=== PATIENT | female | born 1990 | race Two or more races ===

== ENCOUNTER 2025-02-23 16:36 | Emergency (ER) | payer MEDICAID, OTHER ==
[~2025-02-23] VITALS: Ht 162.6 cm; Wt 108.6 kg
--- NOTE | 2025-02-23 17:07 | ED.PDOC ---
GI ASSESSMENT HPI Comments 34 y/o F, with PMHx of PCOS of uterine fibroids presents to the ED for CC of abdominal pain. Patient states, she has been experiencing pelvic and lower abdominal pain that radiates to her lower back sudden onset, this morning (02/23/25). Patient denies urinary symptoms, hematuria, nausea, vomiting, or fever. No other symptoms or modifying factors are present at this time. Patient was mildly tachycardic at arrival. Chief Complaint: Abdominal Pain Time Seen by MD: 17:00 Reviewed Notes: Nurses Notes, Medications, Allergies Allergies: Coded Allergies: Acetaminophen (Verified Allergy, Unknown, 02/23/25) Information Source: Patient Mode of Arrival: Ambulatory Timing: Hours Duration: Since onset Prehospital treatment: None Quality: None Vomitus: None Stool: Normal Severity: Moderate Recent: None Recent Hx of: None Pain Location: RLQ, LLQ, Other Modifying Factors: Nothing Associated sign and symptoms: Nausea, Abdominal Pain Past Medical History PAST MEDICAL HISTORY: Denies Surgical History: Denies all surgeries [employer] History: Uterine Fibroids Family History Family History: Unknown Social History Smoker: Non-Smoker Alcohol: Denies ETOH Use Drugs: Denies Drug Use Lives In: Home Constitutional: denies: chills, diaphoresis, fatigue, fever, malaise, sweats, weakness, others EENTM: denies: blurred vision, double vision, ear bleeding, ear discharge, ear drainage, ear pain, ear ringing, eye pain, eye redness, hearing loss, mouth pain, mouth swelling, nasal discharge, nose bleeding, nose congestion, nose pain, photophobia, tearing, throat pain, throat swelling, voice changes, others Respiratory: denies: cough, hemoptysis, orthopnea, SOB at rest, shortness of breath, SOB with excertion, stridor, wheezing, others Cardiovascular: denies: chest pain, dizzy spells, diaphoresis, Dyspnea on exertion, edema, irregular heart beat, left arm pain, lightheadedness, palpitations, PND, syncope, others Gastrointestinal: reports: abdominal pain; denies: abdomen distended, blood streaked bowels, constipated, diarrhea, dysphagia, difficulty swallowing, hematemesis, melena, nausea, poor appetite, poor fluid intake, rectal bleeding, rectal pain, vomiting, others Genitourinary: denies: abnormal vagina bleeding, burning, dyspareunia, dysuria, flank pain, frequency, hematuria, incontinence, pain, , vagina discharge, urgency, others Neurological: denies: dizziness, fainting, headache, left sided numbness, left sided weakness, numbness, paresthesia, pre-existing deficit, right sided nu mbness, right sided weakness, seizure, speech problems, tingling, tremors, weakness, others Musculoskeletal: denies: back pain, gout, joint pain, joint swelling, muscle pain, muscle stiffness, neck pain, others Integumetry: denies: bruises, change in color, change in hair/nails, dryness, laceration, lesions, lumps, rash, wounds, others Allergic/Immunocompromised: denies: Difficulty Healing, Frequent Infections, Hives, Itching, others Hematologic/Lymphatic: denies: anemia, blood clots, easy bleeding, easy bruising, swollen glands, others Endocrine: denies: excessive hunger, excessive sweating, excessive thirst, excessive urination, flushing, intolerance to cold, intolerance to heat, unexplained weight gain, unexplained weight loss, others Psychiatric: denies: anxiety, bipolar disorder, depression, hopeless, panic disorder, schizophrenia, sleepless, suicidal, others All Other Systems: Reviewed and Negative Physical Exam General Appearance: Moderate Distress (Moderate distress due to abdominal pain concerns.), Obese HEENT: Normal ENT Inspection, Pharynx Normal, TMs Normal Neck: Full Range of Motion, Non-Tender, Normal, Normal Inspection Respiratory: Chest Non-Tender, Lungs Clear, No Accessory Muscle Use, No Respiratory Distress, Normal Breath Sounds Cardiovascular: No Edema, No JVD, No Murmur, No Gallop, Normal Peripheral Pulses, Regular Rate/Rhythm Breast Exam: Deferred Gastrointestinal: Other (Diffuse bilateral lower abdominal pain with left greater than right. Pain extends into the pelvis and back. Difficult to assess due to body habitus. No signs of trauma.) Genitalia: Deferred Pelvic: Deferred Rectal: Deferred Extremities: No calf tenderness, Normal capillary refill, Normal inspection, Normal range of motion, Non-tender, No pedal edema Neurologic: Alert, No Motor Deficits, Normal Affect, Normal Mood, No Sensory Deficits Cerebellar Function: NOT DONE Reflexes: NOT DONE Skin: Dry, Normal Color, Warm Lymphatic: No Adenopathy Was a procedure done? Was a procedure done?: No GI differential Dx Differential Diagnosis: Appendicitis, Bowel Obstruction, Cholecystitis, C onstipation, Diverticular disease, Ovarian cyst/torsion, Urinary Obstruction, UTI, Urolithiasis X-Ray, Labs, Meds, VS Vital Signs Date Time Temp Pulse Resp B/P (MAP) Pulse Ox O2 Delivery O2 Flow Rate FiO2 02/23/25 16:37 98.1 101 16 138/94 99 98.1 Lab Test 02/23/25 18:00 02/23/25 17:21 Range/Units Urine Color Yellow Yellow Urine Clarity Clear Clear Urine pH 6.5 5.0-9.0 Urine Specific [place] 1.031 1.001-1.035 Urine Protein Negative Negative Urine Ketones Negative Negative Urine Blood Negative Negative /uL Urine Nitrite Negative Negative Urine Bilirubin Negative Negative Urine Urobilinogen Normal Negative mg/dL Urine Leukocyte Esterase Negative Negative /uL Urine RBC 1 0 - 4 /hpf Urine Microscopic WBC 2 0-5 /HPF Urine Squamous Epithelial Cells Few <5 /hpf Urine Bacteria Few H None Seen /hpf Urine Mucus Few None Seen Urine Glucose Normal Normal mg/dL Urine Test Negative Negative White Blood Count 16.0 H 4.4-10.8 10^3/uL Red Blood Count 5.28 H 4.0-5.20 10^6/uL Hemoglobin 14.4 12.2-16.2 g/dL Hematocrit 43.2 36.0-46.0 % Mean Corpuscular Volume 81.7 80.0-100.0 fL Mean Corpuscular Hemoglobin 27.2 L 28.0-32.0 pg Mean Corpuscular Hemoglobin Concent 33.3 32.0-36.0 g/dL Red Cell Distribution Width 14.4 H 11.8-14.3 % Platelet Count 330 140-450 10^3/uL Mean Platelet Volume 8.3 6.9-10.8 fL Neutrophils (%) (Auto) 75.1 37.0-80.0 % Lymphocytes (%) (Auto) 17.2 10.0-50.0 % Monocytes (%) (Auto) 6.6 0.0-12.0 % Eosinophils (%) (Auto) 0.9 0.0-7.0 % Basophils (%) (Auto) 0.2 0.0-2.0 % Neutrophils # (Auto) 12.0 H 1.6-8.6 10 ^3/uL Lymphocytes # (Auto) 2.8 0.4-5.4 10 ^3/uL Monocytes # (Auto) 1.1 0-1.3 10 ^3/uL Eosinophils # (Auto) 0.2 0-0.8 10 ^3/uL Basophils # (Auto) 0 0-0.2 10 ^3/uL Nucleated Red Blood Cells 0.0 % Sodium Level 141 136-145 mmol/L Potassium Level 4.0 3.5-5.1 mmol/L Chloride Level 104 98-107 mmol/L Carbon Dioxide Level 25 20-31 mmol/L Anion Gap 12 5-15 Blood Urea Nitrogen 8 L 9-23 mg/dL Creatinine 0.76 0.550-1.02 mg/dL Glomerular Filtration Rate Calc 107 >90 mL/min BUN/Creatinine Ratio 10.5 10.0-20.0 Serum Glucose 97 74-106 mg/dL Calcium Level 9.4 8.7-10.4 mg/dL C-Reactive Protein High Sensitivity 3.35 H <1.0 mg/dL Current Medications Medications (Trade) Dose Ordered Sig/Altaf Route Start Time Stop Time Status Last Admin Tramadol HCl (Ultram) 50 mg ONCE ONCE PO 02/23/25 18:30 02/23/25 18:31 DC 02/23/25 18:41 X-Ray, Labs, Meds, VS Comment All studies performed the ED were evaluated by me personally. Serum studies revealed an elevated white blood cell count as well as an elevated CRP. CT with contrast of the abdomen and pelvis revealed a diverticulitis event. Patient will be sent home with the antibiotics and pain medication. Time of 1ST Reevaluation: 17:30 Reevaluation 1ST: Unchanged Patient Education/Counseling: Diagnosis, Treatment Family Education/Counseling: No Family Present SEPSIS Sepsis Screen Date sepsis recognized/suspect: Feb 23, 2025 Time Sepsis recognized/suspect: 1640 Recent Procedure: No On Antibiotic Therapy: No Respiratory Rate >20: No Heart Rate >90: Yes Temp<36 C (96.8 F) or >38.3 C: No SBP <90 or MAP <65 mmHG: No New Acute Mental Status Change: No Is the patient on CPAP, BIPAP,: No Physician Orders Heplock Iv (02/23/25 ) Ct Ab Pel With Iv Con Only (02/23/25 18:55) Vital Signs Date Time Temp Pulse Resp B/P (MAP) Pulse Ox O2 Delivery O2 Flow Rate FiO2 02/23/25 16:37 98.1 101 16 138/94 99 98.1 Laboratory Tests Test 02/23/25 17:21 White Blood Count 16.0 10^3/uL (4.4-10.8) H Medications Medications Dose Ordered Sig/Altaf Route Start Time Stop Time Status Last Admin Dose Admin Tramadol HCl 50 mg ONCE ONCE PO 02/23/25 18:30 02/23/25 18:31 DC 02/23/25 18:41 Departure 1 Departure Time of Disposition: 21:42 Impression: Primary Impression: Diverticulitis of intestine Disposition: 01 HOME / SELF CARE / HOMELESS Condition: Stable Additional Instructions: Advise antibiotics as directed until completion as well as pain medication as needed. Patient should follow up with the primary care provider in 10 days for re-evaluation and conversation is related to today's diagnosis. e-Prescriptions Ibuprofen Micronized (Ibuprofen) 800 Mg Tab 800 MG PO Q8HP PRN, #20 TAB Prov: BAKARI VIZCARRA PAC 02/23/25 Tramadol Hcl (Tramadol Hcl) 50 Mg Tab 50 MG PO Q6HP PRN, #20 TAB Prov: BAKARI VIZCARRA PAC 02/23/25 Amoxicillin & Pot Clavulanate (AUGMENTIN TABLET) 875 Mg Tb 875 MG PO BID for 10 Days, #20 TAB Prov: BAKARI VIZCARRA PAC 02/23/25 Discharged With: Self, Friend Critical Care Note Critical Care Time?: No Stability Stability form required: No Heart Score Heart Score: Heart Score Response (Comments) Value History N/A 0 EKG N/A 0 Age N/A 0 Risk Factors N/A 0 Troponin N/A 0 Total 0 I personally scribed for BAKARI VIZCARRA PAC ([email or web address]) on 02/23/25 at 17:07. Electronically submitted by Yulia Prieto ([email or web address]). BAKARI VIZCARRA PAC Feb 23, 2025 17:07
[2025-02-23] MEDS ORDERED: HYDROcodone-ACET 10/325MG TAB PO ONE (17:15)
[2025-02-23 17:34] LABS: Hematocrit 43.2 % (36.0-46.0); Hemoglobin 14.4 g/dL (12.2-16.2); Mean Corpuscular Hemoglobin 27.2 pg (28.0-32.0); Mean Corpuscular Volume 81.7 fL (80.0-100.0); Nucleated Red Blood Cells % 0.0 %
[2025-02-23 17:47] LABS: Chloride 104 mmol/L (98-107); Potassium 4.0 mmol/L (3.5-5.1); Sodium 141 mmol/L (136-145)
[2025-02-23 17:48] LABS: Anion Gap 12 (5-15); Calcium 9.4 mg/dL (8.7-10.4); Carbon Dioxide 25 mmol/L (20-31)
[2025-02-23 17:53] LABS: BUN/Creatinine Ratio 10.5 (10.0-20.0); Glucose 97 mg/dL (74-106)
[2025-02-23 18:14] LABS: Blood Urea Nitrogen 8 mg/dL (9-23)
[2025-02-23 18:44] LABS: Urine Protein, UAD Negative (Negative)
[2025-02-23] MEDS: IOHEXOL 300 MG/ML 100ML BOTTLE IJ ONE (19:20)
--- NOTE | 2025-02-23 21:18 | DVH ---
Exam: CT CT AB PEL WITH IV CON ONLY History: Diffuse abdominal pain Comparison Study: None TECHNIQUE: Multidetector CT of the abdomen pelvis with IV contrast. Axial, coronal and sagittal multi planar reformats were obtained from the axial data set by the technologist. Radiation Dose Information: CT Dose: CTDI volume is 22.57 mGy. Dose-length product is 1501.78 mGy*cm FINDINGS: Bibasilar atelectasis. Partially visualized heart is unremarkable. Mild hepatomegaly with hepatic steatosis. Otherwise, liver, spleen, gallbladder, pancreas and adrenal glands unremarkable. Punctate nonobstructing right renal calculus. Otherwise, kidneys, ureters and urinary bladder unremar kable. Uterus and adnexa unremarkable. Stomach is unremarkable. Mild wall Thickening of proximal small bowel loops. The remainder of the sma ll bowel loops unremarkable. Appendix is unremarkable. Small to moderate amount of fecal material wit hin the colon. Sigmoid diverticulosis with wall thickening of the sigmoid and perisigmoid fat strandi ng. No evidence of intraperitoneal free air or free fluid. No evidence of aortic aneurysm or dissection. No significant lymphadenopathy. Tiny fat containing umbilical hernia. The soft tissues are unremarkable. No evidence of acute osseou s abnormalities. IMPRESSION: Sigmoid diverticulitis with no associated free air or abscess. Mild wall Thickening of proximal small bowel loops which may be due to inadequate distention/ enterit is.
[2025-02-23] MEDS ORDERED: TRAM50TA2 PO (21:45)
[2025-02-23] MEDS ORDERED: IBUP-1455 PO (21:45)
[2025-02-23] MEDS ORDERED: AUG875T PO (21:45)
[2025-02-23 22:00] VITALS: TEMP 99.5; O2SAT 100
[2025-02-23] MEDS: HYDROcodone-ACET 10/325MG TAB PO ONE (22:30)
[2025-02-23 23:56] VITALS: BP 112/60; PULSE 102; RESP 18
[2025-02-23] MEDS: HYDROmorphone HCL 2 MG/ML VL/or syr IV ONE (23:56)
== END 2025-02-24 00:12 | disposition home or self-care (01) ==
LOC: ER 16:36
DX: K57.32 Diverticulitis of large intestine without perforation or abscess without bleeding (principal); Z79.899 Other long term (current) drug therapy
CPT/HCPCS: 36415; 74177; 80048; 81001; 81025; 85025; 86141; 96374; 99285; J1171; J7030; Q9967

== ENCOUNTER 2025-02-25 07:48 | Inpatient (IN) | payer MEDICAID ==
[~2025-02-25] VITALS: Ht 162.6 cm; Wt 109.6 kg
[~2025-02-25 07:48] MED LIST: AUG875T PO; IBUP-1455 PO; TRAM50TA2 PO
--- NOTE | 2025-02-25 08:00 | ED.PDOC ---
GI ASSESSMENT HPI Comments 34-year-old female presents here with left lower quadrant pain. Patient was seen here 2 days ago diagnosed with diverticulitis and was sent home. She states this morning she was attempting to have a bowel movement when she felt something pop in the left lower quadrant and she states the pain became significantly worse at that point. She states on the car ride here the every single bump bothered her significantly. She reports positive nausea and excruciating pain. She states pain today is significantly worse in the pain that was there 2 days ago. Denies any fever or chills. Chief Complaint: Abdominal Pain Time Seen by MD: 08:25 Reviewed Notes: Medications, Allergies Allergies: Coded Allergies: Acetaminophen (Verified Allergy, Unknown, 02/23/25) Home Meds Active Scripts Ibuprofen Micronized (Ibuprofen) 800 Mg Tab, 800 MG PO Q8HP PRN, #20 TAB Prov:BAKARI VIZCARRA [facility] 02/23/25 Tramadol Hcl (Tramadol Hcl) 50 Mg Tab, 50 MG PO Q6HP PRN, #20 TAB Prov:BAKARI VIZCARRA [facility] 02/23/25 Amoxicillin & Pot Clavulanate (AUGMENTIN TABLET) 875 Mg Tb, 875 MG PO BID for 10 Days, #20 TAB Prov:BAKARI VIZCARRA [facility] 02/23/25 Information Source: Patient Mode of Arrival: Ambulatory Timing: Days Duration: Since onset Prehospital treatment: None Quality: Sharp Vomitus: None Severity: Moderate Recent: None Recent Hx of: None Pain Location: LLQ Modifying Factors: Nothing Associated sign and symptoms: Nausea, Constipation, Abdominal Pain Past Medical History Past Medical History (Other): diverticulitis Surgical History: Denies all surgeries ADMISSIONS COUNSELOR History: Uterine Fibroids Family History Family History: Unknown Social History Smoker: Non-Smoker Alcohol: Denies ETOH Use Drugs: Denies Drug Use Lives In: Home Constitutional: denies: chills, diaphoresis, fatigue, fever, malaise, sweats, weakness, others EENTM: denies: blurred vision, double vision, ear bleeding, ear discharge, ear drainage, ear pain, ear ringing, eye pain, eye redness, hearing loss, mouth pain, mouth swelling, nasal discharge, nose bleeding, nose congestion, nose pain, photophobia, tearing, throat pain, throat swelling, voice changes, others Respiratory: denies: cough, hemoptysis, orthopnea, SOB at rest, shortness of breath, SOB with excertion, stridor, wheezing, others Cardiovascular: denies: chest pain, dizzy spells, diaphoresis, Dyspnea on exertion, edema, irregular heart beat, left arm pain, lightheadedness, palpitations, PND, syncope, others Gastrointestinal: reports: abdominal pain, diarrhea, nausea; denies: abdomen distended, blood streaked bowels, constipated, dysphagia, difficulty swallowing, hematemesis, melena, poor appetite, poor fluid intake, rectal bleeding, rectal pain, vomiting, others Genitourinary: denies: abnormal vagina bleeding, burning, dyspareunia, dysuria, flank pain, frequency, hematuria, incontinence, pain, , vagina discharge, urgency, others Neurological: denies: dizziness, fainting, headache, left sided numbness, left sided weakness, numbness, paresthesia, pre-existing deficit, right sided numbness, right sided weakness, seizure, speech problems, tingling, tremors, weakness, others Musculoskeletal: denies: back pain, gout, joint pain, joint swelling, muscle pain, muscle stiffness, neck pain, others Integumetry: denies: bruises, change in color, change in hair/nails, dryness, laceration, lesions, lumps, rash, wounds, others Allergic/Immunocompromised: denies: Difficulty Healing, Frequent Infections, Hives, Itching, others Hematologic/Lymphatic: denies: anemia, blood clots, easy bleeding, easy bruising, swollen glands, others Endocrine: denies: excessive hunger, excessive sweating, excessive thirst, excessive urination, flushing, intolerance to cold, intolerance to heat, unexplained weight gain, unexplained weight loss, others Psychiatric: denies: anxiety, bipolar disorder, depression, hopeless, panic disorder, schizophrenia, sleepless, suicidal, others All Other Systems: Reviewed and Negative Physical Exam General Appearance: Normal, Severe Distress HEENT: Normal ENT Inspection, Pharynx Normal, TMs Normal Neck: Full Range of Motion, Non-Tender, Normal, Normal Inspection Respiratory: Chest Non-Tender, Lungs Clear, No Accessory Muscle Use, No Respiratory Distress, Normal Breath Sounds Cardiovascular: No Edema, No JVD, No Murmur, No Gallop, Normal Peripheral Pul ses, Tachycardia Breast Exam: Deferred Gastrointestinal: Other (Diffuse significant abdominal tenderness to palpation in all sandy worse in the left lower quadrant.) Genitalia: Deferred Pelvic: Deferred Rectal: Deferred Extremities: No calf tenderness, Normal capillary refill, Normal inspection, Normal range of motion, Non-tender, No pedal edema Musculoskeletal : Apperance: Normal Neurologic: Alert, No Motor Deficits, Normal Affect, Normal Mood, No Sensory Deficits Cerebellar Function: Normal Reflexes: Normal Skin: Dry, Normal Color, Warm Lymphatic: No Adenopathy Was a procedure done? Was a procedure done?: No GI differential Dx Differential Diagnosis: Other Other Differential Diagnosis Abscess, perforated diverticulitis, small-bowel obstruction, diverticulitis X-Ray, Labs, Meds, VS Vital Signs Date Time Temp Pulse Resp B/P (MAP) Pulse Ox O2 Delivery O2 Flow Rate FiO2 02/25/25 11:00 108 22 103/56 02/25/25 10:08 108 22 122/82 02/25/25 10:03 108 22 122/82 02/25/25 08:54 94 21 124/83 02/25/25 08:50 90 15 96 Room Air* 0 21 02/25/25 08:50 90 15 122/73 (89) 96 02/25/25 07:50 97.5 106 22 132/98 99 97.5 Lab Test 02/25/25 10:26 02/25/25 10:00 02/25/25 08:40 Range/Units Potassium Level 3.8 # 6.1 #*H 3.5-5.1 mmol/L Urine Color Light-yellow Yellow Urine Clarity Clear Clear Urine pH 7.0 5.0-9.0 Urine Specific [place] > 1.050 H 1.001-1.035 Urine Protein Negative Negative Urine Ketones 1+ H Negative Urine Blood Negative Negative /uL Urine Nitrite Negative Negative Urine Bilirubin Negative Negative Urine Urobilinogen Normal Negative mg/dL Urine Leukocyte Esterase Negative Negative /uL Urine RBC 1 0 - 4 /hpf Urine Microscopic WBC < 1 0-5 /HPF Urine Squamous Epithelial Cells Few <5 /hpf Urine Bacteria None seen None Seen /hpf Urine Glucose Normal Normal mg/dL Urine Opiates Screen Neg NEGATIVE Urine Fentanyl Screen Neg NEGATIVE Urine Barbiturates Screen Neg NEGATIVE Urine Phencyclidine Screen Neg NEGATIVE Urine Amphetamines Screen Neg NEGATIVE Urine Benzodiazepines Screen Neg NEGATIVE Urine Cocaine Screen Neg NEGATIVE Urine Cannabinoids Screen Neg NEGATIVE White Blood Count 16.5 H 4.4-10.8 10^3/uL Red Blood Count 4.74 4.0-5.20 10^6/uL Hemoglobin 13.7 12.2-16.2 g/dL Hematocrit 38.4 # 36.0-46.0 % Mean Corpuscular Volume 81.0 80.0-100.0 fL Mean Corpuscular Hemoglobin 28.9 28.0-32.0 pg Mean Corpuscular Hemoglobin Concent 35.6 32.0-36.0 g/dL Red Cell Distribution Width 13.8 11.8-14.3 % Platelet Count 349 140-450 10^3/uL Mean Platelet Volume 8.9 6.9-10.8 fL Neutrophils (%) (Auto) 88.4 H 37.0-80.0 % Lymphocytes (%) (Auto) 6.0 L 10.0-50.0 % Monocytes (%) (Auto) 5.0 0.0-12.0 % Eosinophils (%) (Auto) 0.3 0.0-7.0 % Basophils (%) (Auto) 0.3 0.0-2.0 % Neutrophils # (Auto) 14.6 H 1.6-8.6 10 ^3/uL Lymphocytes # (Auto) 1.0 0.4-5.4 10 ^3/uL Monocytes # (Auto) 0.8 0-1.3 10 ^3/uL Eosinophils # (Auto) 0 0-0.8 10 ^3/uL Basophils # (Auto) 0.1 0-0.2 10 ^3/uL Nucleated Red Blood Cells 0.0 % Prothrombin Time 11.3 9.3-11.8 sec Prothrombin Time INR 1.07 0.9-1.15 Sodium Level 135 #L 136-145 mmol/L Chloride Level 102 98-107 mmol/L Carbon Dioxide Level 21 20-31 mmol/L Anion Gap 12 5-15 Blood Urea Nitrogen 10 9-23 mg/dL Creatinine 0.90 0.550-1.02 mg/dL Glomerular Filtration Rate Calc 87 >90 mL/min BUN/Creatinine Ratio 11.1 10.0-20.0 Serum Glucose 97 74-106 mg/dL Calcium Level 8.9 8.7-10.4 mg/dL Total Bilirubin 0.9 0.2-1.0 mg/dL Aspartate Amino Transferase (AST) 55 H 13-40 U/L Alanine Aminotransferase (ALT) 24 7-40 U/L Alkaline Phosphatase 88 46-116 U/L Lactate Dehydrogenase Pending Total Protein 7.8 5.7-8.2 g/dL Albumin 4.6 3.2-4.8 g/dL Current Medications Medications (Trade) Dose Ordered Sig/Altaf Route Start Time Stop Time Status Last Admin Hydromorphone HCl (Dilaudid Injection) 1 mg ONCE ONCE IV 02/25/25 08:15 02/25/25 08:16 DC 02/25/25 08:54 Ondansetron HCl (Zofran) 4 mg ONCE ONCE IV 02/25/25 08:15 02/25/25 08:16 DC 02/25/25 08:53 Hydromorphone HCl (Dilaudid Injection) 1 mg ONCE ONCE IV 02/25/25 10:15 02/25/25 10:16 DC 02/25/25 10:08 Piperacillin Sod/ Tazobactam Sod 100 ml @ 100 mls/hr ONCE ONCE IV 02/25/25 10:15 02/25/25 11:14 DC 02/25/25 11:09 Metronidazole 100 ml @ 100 mls/hr ONCE ONCE IV 02/25/25 10:15 02/25/25 11:14 DC 02/25/25 10:11 [place] [id number] Ph: [phone] DIAGNOSTIC IMAGING Diagnostic Imaging Report : [id number] Signed PATIENT: SHAAN BETANCOURT ACCT: [id number] UNIT: [id number] : 1990 LOC: ER ROOM / BED: / AGE / SEX: 34 / F ADM STATUS: REG ER SERVICE [id number] ORDERING PHYSICIAN: MACI ROB MD PROCEDURE(s): ABPLIV - CT AB PEL WITH IV CON ONLY REASON: R/O perforation/abscess from diverticulitis ORDER NUMBER(s): [id number], ACCESSION NUMBER(s): [id number] CLINICAL HISTORY: R/O perforation/abscess from diverticulitis TECHNIQUE: CT of the abdomen and pelvis was performed with IV contrast. This exam was performed according to our departmental dose optimization program. Up-to-date CT equipment and radiation dose reduction techniques are utilized as appropriate. CTDI 24.2 DLP 1322 COMPARISON: CT CT AB PEL WITH IV CON ONLY on DOS: 02/23/25 FINDINGS: Abdomen/Pelvis: The spleen, pancreas, adrenal glands, gallbladder, liver, left kidney, bladder, and uterus are unremarkable. There is a 2 mm nonobstructing right renal calculus. The abdominal aorta is normal in course and caliber. There are no significant atherosclerotic calcifications. There is no enlarged abdominal or pelvic lymph node. There is worsening appearance of acute sigmoid colon diverticulitis with wall thickening, inflammation, and numerous foci of adjacent free intraperitoneal air , mostly adjacent to the sigmoid colon. There is trace adjacent ill-defined fluid. There is fluid at the deep pelvis. No discrete fluid collection to suggest an abscess is seen. Other: The imaged lower thorax is unremarkable. No acute osseous abnormality is evident. IMPRESSION: Worsening appearance acute sigmoid colon diverticulitis including numerous foci of free intraperitoneal air, mostly adjacent to the sigmoid colon. Trace fluid of the deep pelvis. FINDINGS AND INTERPRETATION DISCUSSED WITH DR ROB AT DATE AND TIME 02/25/2025 09:57 AM ATED BY: PARIS BLOOM MD DICTATED DATE/TIME: 02/25/25956 SIGNED BY: PARIS BLOOM MD SIGNED DATE/TIME: 02/25/25956 CC: 34-year-old female presents here with left lower quadrant abdominal pain. She was here 2 days ago diagnosed with diverticulitis and states the pain has significantly become worse this morning after she attempted a bowel movement and felt a pop. On my examination she has diffuse abdominal tenderness to palpation is in severe distress with tenderness worse in the left lower quadrant. I am concerned about acute abscess/acute perforation. Although she had a CT scan with contrast done 2 days ago I have ordered a repeat CT scan with contrast done today given the emergent condition. Patient has been written for IV pain me dications and IV fluids. Strict NPO. CBC CMP has been ordered and are pending. CBC with evidence of leukocytosis of 16.5. CMP unremarkable. CT abdomen pelvis does demonstrate acute perforation. I spoke to Dr. Yeung regarding the results at 9:57 a.m.. Initial CMP also demonstrated a high potassium 6.1. Suspect it is hemolyzed. Repeat is 4.9. Suspect consult stat has been made. Patient has been kept NPO. Pain medications has been addressed. At this time hospitalist team has been contacted for admission. I have written for Zosyn IV and Flagyl IV. Time of 1ST Reevaluation: 08:55 Reevaluation 1ST: Unchanged Time of 2ND Reevaluation: 13:18 Reevaluation 2ND: Improved Patient Education/Counseling: Diagnosis, Treatment Family Education/Counseling: Diagnosis, Treatment SEPSIS Sepsis Screen Date sepsis recognized/suspect: Feb 25, 2025 Time Sepsis recognized/suspect: 752 Recent Procedure: No On Antibiotic Therapy: No Respiratory Rate >20: No Heart Rate >90: Yes Temp<36 C (96.8 F) or >38.3 C: No SBP <90 or MAP <65 mmHG: No New Acute Mental Status Change: No Is the patient on CPAP, BIPAP,: No Physician Orders Urine (02/25/25 07:57) Ct Ab Pel With Iv Con Only (02/25/25 08:50) * Surgical Consult (02/25/25 ) Vital Signs Date Time Temp Pulse Resp B/P (MAP) Pulse Ox O2 Delivery O2 Flow Rate FiO2 02/25/25 11:00 108 22 103/56 02/25/25 10:08 108 22 122/82 02/25/25 10:03 108 22 122/82 02/25/25 08:54 94 21 124/83 02/25/25 08:50 90 15 96 Room Air* 0 21 02/25/25 08:50 90 15 122/73 (89) 96 02/25/25 07:50 97.5 106 22 132/98 99 97.5 Laboratory Tests Test 02/25/25 08:40 White Blood Count 16.5 10^3/uL (4.4-10.8) H Medications Medications Dose Ordered Sig/Altaf Route Start Time Stop Time Status Last Admin Dose Admin Hydromorphone HCl 1 mg ONCE ONCE IV 02/25/25 08:15 02/25/25 08:16 DC 02/25/25 08:54 Hydromorphone HCl 1 mg ONCE ONCE IV 02/25/25 10:15 02/25/25 10:16 DC 02/25/25 10:08 Metronidazole 100 ml @ 100 mls/hr ONCE ONCE IV 02/25/25 10:15 02/25/25 11:14 DC 02/25/25 10:11 Ondansetron HCl 4 mg ONCE ONCE IV 02/25/25 08:15 02/25/25 08:16 DC 02/25/25 08:53 Piperacillin Sod/ Tazobactam Sod 100 ml @ 100 mls/hr ONCE ONCE IV 02/25/25 10:15 02/25/25 11:14 DC 02/25/25 11:09 Departure 1 Departure Time of Disposition: 08:57 Impression: Primary Impression: Diverticulitis of intestine with perforation and abscess Qualified Codes: K57.20 - Diverticulitis of large intestine with perforation and abscess without bleeding Disposition: ADMITTED INPATIENT Condition: Serious Critical Care Note Critical Care Time?: Yes (1 hr-critical care time only) Critical care comment: Time spent immediately evaluating patient, multiple re-evaluations of the patient, speaking to wafer fabrication technician, reviewing results from last visit, speaking to patient and family, speaking to admitting team, speaking to surgeon Stability Stability form required: No Heart Score Heart Score: Heart Score Response (Comments) Value History N/A 0 EKG N/A 0 Age N/A 0 Risk Factors N/A 0 Troponin N/A 0 Total 0 I personally scribed for MACI ROB MD ([email or web address]) on 02/25/25 at 08:00. Electronically submitted by Mary Jo Miner ([email or web address]). I personally scribed for MACI ROB MD ([email or web address]) on 02/25/25 at 08:37. Electronically submitted by Mary Jo Mnier ([email or web address]). I personally scribed for MACI ROB MD ([email or web address]) on 02/25/25 at 08:46. Electronically submitted by Mary Jo Miner ([email or web address]). I personally scribed for MACI ROB MD ([email or web address]) on 02/25/25 at 10:04. Electronically submitted by Mary Jo Miner ([email or web address]). MACI ROB MD Feb 25, 2025 08:00
[2025-02-25 08:50] VITALS: PULSE 90; RESP 15; O2SAT 96
[2025-02-25] MEDS: ONDANSETRON HCL 4 MG/2 ML VIAL IV ONE (08:53)
[2025-02-25] MEDS: HYDROmorphone HCL 2 MG/ML VL/or syr IV ONE ×2 (08:54→10:08)
[2025-02-25 09:11] LABS: Hematocrit 38.4 % (36.0-46.0); Hemoglobin 13.7 g/dL (12.2-16.2); Mean Corpuscular Hemoglobin 28.9 pg (28.0-32.0); Mean Corpuscular Volume 81.0 fL (80.0-100.0); Nucleated Red Blood Cells % 0.0 %
[2025-02-25 09:23] LABS: Albumin 4.6 g/dL (3.2-4.8); Alkaline Phosphatase 88 U/L (46-116); Anion Gap 12 (5-15); Bilirubin, Total 0.9 mg/dL (0.2-1.0); Calcium 8.9 mg/dL (8.7-10.4); Carbon Dioxide 21 mmol/L (20-31); Chloride 102 mmol/L (98-107); Glucose 97 mg/dL (74-106); Total Protein 7.8 g/dL (5.7-8.2)
[2025-02-25 09:34] LABS: Sodium 135 mmol/L (136-145)
[2025-02-25 09:36] LABS: Alanine Aminotransferase 24 U/L (7-40); BUN/Creatinine Ratio 11.1 (10.0-20.0); Blood Urea Nitrogen 10 mg/dL (9-23)
[2025-02-25 09:38] LABS: Potassium 6.1 mmol/L (3.5-5.1)
[2025-02-25] MEDS: IOHEXOL 300 MG/ML 100ML BOTTLE IJ ONE (09:40)
--- NOTE | 2025-02-25 10:00 | DVH ---
CLINICAL HISTORY: R/O perforation/abscess from diverticulitis TECHNIQUE: CT of the abdomen and pelvis was performed with IV contrast. This exam was performed accor ding to our departmental dose optimization program. Up-to-date CT equipment and radiation dose reduct ion techniques are utilized as appropriate. CTDI 24.2 DLP 1322 COMPARISON: CT CT AB PEL WITH IV CON ONLY on DOS: 02/23/25 FINDINGS: Abdomen/Pelvis: The spleen, pancreas, adrenal glands, gallbladder, liver, left kidney, bladder, and uterus are unrema rkable. There is a 2 mm nonobstructing right renal calculus. The abdominal aorta is normal in course and caliber. There are no significant atherosclerotic calcifi cations. There is no enlarged abdominal or pelvic lymph node. There is worsening appearance of acute sigmoid colon diverticulitis with wall thickening, inflammatio n, and numerous foci of adjacent free intraperitoneal air, mostly adjacent to the sigmoid colon. Ther e is trace adjacent ill-defined fluid. There is fluid at the deep pelvis. No discrete fluid collectio n to suggest an abscess is seen. Other: The imaged lower thorax is unremarkable. No acute osseous abnormality is evident. IMPRESSION: Worsening appearance acute sigmoid colon diverticulitis including numerous foci of free intraperitone al air, mostly adjacent to the sigmoid colon. Trace fluid of the deep pelvis. FINDINGS AND INTERPRETATION DISCUSSED WITH DR ROB AT DATE AND TIME 02/25/2025 09:57 AM
[2025-02-25 10:34] LABS: Urine Protein, UAD Negative (Negative)
[2025-02-25] MEDS: PIPERACILLIN-TAZOB 3.375GM 100 ML IV ONE (11:09)
--- NOTE | 2025-02-25 11:13 | DVHHP2 ---
History of Present Illness Reason for Visit: Abdominal pain with nausea and vomiting History of Present Illness Sveta Holliday is a 34-year-old female with past medical history of uterine fibroids and PCOS who presents to the ED with left lower quadrant pain with nausea and vomiting x2 days. She reports she was here 2 days ago and diagnosed with diverticulitis and sent home with pain medications and antibiotics. This morning she states that she was walking to the bathroom and felt sudden sharp left lower quadrant abdominal pain. She reports the pain being 10/10 tearing like and constant. She reports that she has daily bowel movements but they are not lumpy or hard but reports that today's was. Patient denies any melena or hematemesis or hematochezia. Patient's boyfriend Ilia is at the bedside. Patient reports that she woke up and cold sweats this morning and felt warm. Boyfriend states that she felt warm but no fever. Patient denies any recent trauma or injury, recent sick contacts, recent ingestion of spoiled food, recent travels, chest pain, shortness of breath, fever, chills, diarrhea, lightheadedness, weakness, dizziness, or urinary symptoms. Past Medical History PCOS Uterine fibroids Past Surgical History: None Family History: None Smoke: No ALCOHOL: none Drugs: None Lives: with Family Domestic Violence: Neg Review of Systems Gastrointestinal: Nausea, Vomiting, Abdominal Pain Allergies: Coded Allergies: Acetaminophen (Verified Allergy, Unknown, 02/23/25) Exam Vital Signs Vital Signs Date Time Temp Pulse Resp B/P (MAP) Pulse Ox O2 Delivery O2 Flow Rate FiO2 02/25/25 10:08 108 22 122/82 02/25/25 08:50 96 Room Air* 0 21 02/25/25 07:50 97.5 97.5 General Appearance: Alert, Oriented X3, Cooperative, No acute distress HEENT: Atraumatic, PERRLA, EOMI, Mucous membr. moist/pink Respiratory: Clear to auscultation, Normal air movement Cardiovascular: Normal S1, Normal S2, No murmurs Abdominal: Soft Extremities: No clubbing, No cyanosis, No edema, Normal pulses, No tenderness/swelling Skin: No significant lesion Neuro: Normal speech, Strength at 5/5 X4 ext, Normal tone, Sensation intact Psych/Mental Status: Mental status NL, Mood NL Labs/Xrays Labs Test 02/25/25 10:26 02/25/25 10:00 02/25/25 08:40 Range/Units Potassium Level 3.8 # 3.5-5.1 mmol/L Urine Color Light-yellow Yellow Urine Clarity Clear Clear Urine pH 7.0 5.0-9.0 Urine Specific [place] > 1.050 H 1.001-1.035 Urine Protein Negative Negative Urine Ketones 1+ H Negative Urine Blood Negative Negative /uL Urine Nitrite Negative Negative Urine Bilirubin Negative Negative Urine Urobilinogen Normal Negative mg/dL Urine Leukocyte Esterase Negative Negative /uL Urine RBC 1 0 - 4 /hpf Urine Microscopic WBC < 1 0-5 /HPF Urine Squamous Epithelial Cells Few <5 /hpf Urine Bacteria None seen None Seen /hpf Urine Glucose Normal Normal mg/dL White Blood Count 16.5 H 4.4-10.8 10^3/uL Red Blood Count 4.74 4.0-5.20 10^6/uL Hemoglobin 13.7 12.2-16.2 g/dL Hematocrit 38.4 # 36.0-46.0 % Mean Corpuscular Volume 81.0 80.0-100.0 fL Mean Corpuscular Hemoglobin 28.9 28.0-32.0 pg Mean Corpuscular Hemoglobin Concent 35.6 32.0-36.0 g/dL Red Cell Distribution Width 13.8 11.8-14.3 % Platelet Count 349 140-450 10^3/uL Mean Platelet Volume 8.9 6.9-10.8 fL Neutrophils (%) (Auto) 88.4 H 37.0-80.0 % Lymphocytes (%) (Auto) 6.0 L 10.0-50.0 % Monocytes (%) (Auto) 5.0 0.0-12.0 % Eosinophils (%) (Auto) 0.3 0.0-7.0 % Basophils (%) (Auto) 0.3 0.0-2.0 % Neutrophils # (Auto) 14.6 H 1.6-8.6 10 ^3/uL Lymphocytes # (Auto) 1.0 0.4-5.4 10 ^3/uL Monocytes # (Auto) 0.8 0-1.3 10 ^3/uL Eosinophils # (Auto) 0 0-0.8 10 ^3/uL Basophils # (Auto) 0.1 0-0.2 10 ^3/uL Nucleated Red Blood Cells 0.0 % Sodium Level 135 #L 136-145 mmol/L Chloride Level 102 98-107 mmol/L Carbon Dioxide Level 21 20-31 mmol/L Anion Gap 12 5-15 Blood Urea Nitrogen 10 9-23 mg/dL Creatinine 0.90 0.550-1.02 mg/dL Glomerular Filtration Rate Calc 87 >90 mL/min BUN/Creatinine Ratio 11.1 10.0-20.0 Serum Glucose 97 74-106 mg/dL Calcium Level 8.9 8.7-10.4 mg/dL Total Bilirubin 0.9 0.2-1.0 mg/dL Aspartate Amino Transferase (AST) 55 H 13-40 U/L Alanine Aminotransferase (ALT) 24 7-40 U/L Alkaline Phosphatase 88 46-116 U/L Total Protein 7.8 5.7-8.2 g/dL Albumin 4.6 3.2-4.8 g/dL CLINICAL HISTORY: R/O perforation/abscess from diverticulitis TECHNIQUE: CT of the abdomen and pelvis was performed with IV contrast. This exam was performed according to our departmental dose optimization program. Up-to-date CT equipment and radiation dose reduction techniques are utilized as appropriate. CTDI 24.2 DLP 1322 COMPARISON: CT CT AB PEL WITH IV CON ONLY on DOS: 02/23/25 FINDINGS: Abdomen/Pelvis: The spleen, pancreas, adrenal glands, gallbladder, liver, left kidney, bladder, and uterus are unremarkable. There is a 2 mm nonobstructing right renal calculus. The abdominal aorta is normal in course and caliber. There are no significant atherosclerotic calcifications. There is no enlarged abdominal or pelvic lymph node. There is worsening appearance of acute sigmoid colon diverticulitis with wall thickening, inflammation, and numerous foci of adjacent free intraperitoneal air, mostly adjacent to the sigmoid colon. There is trace adjacent ill-defined fluid. There is fluid at the deep pelvis. No discrete fluid collection to suggest an abscess is seen. Other: The imaged lower thorax is unremarkable. No acute osseous abnormality is evident. IMPRESSION: Worsening appearance acute sigmoid colon diverticulitis including numerous foci of free intraperitoneal air, mostly adjacent to the sigmoid colon. Trace fluid of the deep pelvis. SEPSIS Sepsis Screen Date sepsis recognized/suspect: Feb 25, 2025 Time Sepsis recognized/suspect: 0850 Recent Procedure: No On Antibiotic Therapy: No Respiratory Rate >20: No Heart Rate >90: No Temp<36 C (96.8 F) or >38.3 C: No SBP <90 or MAP <65 mmHG: No New Acute Mental Status Change: No Is the patient on CPAP, BIPAP,: No Physician Orders Urine (02/25/25 07:57) Ct Ab Pel With Iv Con Only (02/25/25 08:50) Npo (Nothing By Mouth) Diet (02/25/25 Lunch) * Surgical Consult (02/25/25 ) Piperacillin-Tazob 3.375gm (Zosyn 3.375g (02/25/25 10:15) Metronidazole 500mg/100ml (Flagyl 500mg/ (02/25/25 10:15) Vital Signs Date Time Temp Pulse Resp B/P (MAP) Pulse Ox O2 Delivery O2 Flow Rate FiO2 02/25/25 10:08 108 22 122/82 02/25/25 10:03 108 22 122/82 02/25/25 08:54 94 21 124/83 02/25/25 08:50 90 15 96 Room Air* 0 21 02/25/25 08:50 90 15 122/73 (89) 96 02/25/25 07:50 97.5 106 22 132/98 99 97.5 Laboratory Tests Test 02/25/25 08:40 White Blood Count 16.5 10^3/uL (4.4-10.8) H Medications Medications Dose Ordered Sig/Altaf Route Start Time Stop Time Status Last Admin Dose Admin Hydromorphone HCl 1 mg ONCE ONCE IV 02/25/25 08:15 02/25/25 08:16 DC 02/25/25 08:54 1 MG Hydromorphone HCl 1 mg ONCE ONCE IV 02/25/25 10:15 02/25/25 10:16 DC 02/25/25 10:08 1 MG Metronidazole 100 ml @ 100 mls/hr ONCE ONCE IV 02/25/25 10:15 02/25/25 11:14 02/25/25 10:11 100 MLS/HR Ondansetron HCl 4 mg ONCE ONCE IV 02/25/25 08:15 02/25/25 08:16 DC 02/25/25 08:53 4 MG Assessment/Plan Assessment/Plan Assessment Intractable abdominal pain with nausea and vomiting due to perforated bowel Leukocytosis likely due to acute diverticulitis versus abscess Hyperkalemia History of PCOS History of uterine fibroids Plan Admit to med surge Antiemetics Pain management IV antibiotics- Zosyn Potassium reducing agents CT abdomen and pelvis noted Urine test noted Lactic level Blood cultures Urine cultures UDS PT INR NPO Okay for ice chips per general surgery IV fluids Home medications reconciled DVT prophylaxis-SCDs PUD prophylaxis-PPIs Discussed plan of care with patient and nurse General surgery consulted by ED - plan for IR pelvic abscess drain [id number] Preventive counseling healthy eating habits, physical activity, and regular checkups Plan discussed with: Patient, Other Date of Service: Feb 25, 2025 Billing Provider: INDIGO JOSEPH Common Visit Codes: [id number] INP/OBS CARE (HIGH) Secondary Visit Codes: [id number] COUNSELING IND INDIGO JOSEPH Feb 25, 2025 11:13
[2025-02-25] MEDS ORDERED: HYDROcodone-ACET 5/325MG TAB PO PRN (11:15)
[2025-02-25] MEDS ORDERED: ACETAMINOPHEN 325 MG TAB PO PRN (11:15)
[2025-02-25] MEDS ORDERED: MORPHINE SULFATE INJ 2 MG/ml SYRG IV PRN (11:15)
[2025-02-25] MEDS: SODIUM CHLORIDE 0.9% 1,000 ML IV SCH ×2 (11:43→12:28)
[2025-02-25 12:12] LABS: Opiate Scree,Urine Neg (NEGATIVE)
[2025-02-25 12:15] LABS: Amphetamine Screen, Urine Neg (NEGATIVE); Barbiturate Scree,Urine Neg (NEGATIVE); Benzodiazephine Screen, Urine Neg (NEGATIVE); Cannabinoid Screen, Urine Neg (NEGATIVE); Cocaine Screen, Urine Neg (NEGATIVE); Phencyclidine Screen, Urine Neg (NEGATIVE)
[2025-02-25 12:33] LABS: INR 1.07 (0.9-1.15); Prothrombin Time 11.3 sec (9.3-11.8)
[2025-02-25] MEDS: HYDROMORPHONE HCL 1 MG/ML INJ IV PRN (12:48)
--- NOTE | 2025-02-25 12:58 | DVHINCON2 ---
Consultation - Surgical Date Seen: Feb 25, 2025 Referring Physician Reason for Consultation Diverticulitis History of Present Illness History of Present Illness Mrs. Holliday is a 34-year-old female who presented to the ED with 2 days of lower abdominal pain associated with chills and nausea. Two days ago she came to the ED and was told that she had diverticulitis, was discharged home. States that she decided to come because the pain intensified today. She has been having daily bowel movements although she said that this morning's bowel movement was "lumpy and hard". She denied any blood in the stool. Denies any weight loss/loss of appetite. Denies fever, changes in urinary habits. Past Medical/Surgical History Past Medical/Surgical History PMH diverticulosis, PCOS, fibroids PSH denies Family and Social History Family and Social History No personal or family history of cancers ETOH/T Ob/drugs denies Allergies and medications Allergies: Coded Allergies: Acetaminophen (Verified Allergy, Unknown, 02/23/25) Home Meds Active Scripts Ibuprofen Micronized (Ibuprofen) 800 Mg Tab, 800 MG PO Q8HP PRN, #20 TAB Prov:BAKARI VIZCARRA PAC 02/23/25 Tramadol Hcl (Tramadol Hcl) 50 Mg Tab, 50 MG PO Q6HP PRN, #20 TAB Prov:BAKARI VIZCARRA PAC 02/23/25 Amoxicillin & Pot Clavulanate (AUGMENTIN TABLET) 875 Mg Tb, 875 MG PO BID for 10 Days, #20 TAB Prov:BAKARI VIZCARRA PAC 02/23/25 Review of systems Review of Systems: Deferred Examination Vital signs Vital Signs Date Time Temp Pulse Resp B/P (MAP) Pulse Ox O2 Delivery O2 Flow Rate FiO2 02/25/25 12:48 114 26 117/80 02/25/25 12:00 98.5 97 98.5 02/25/25 08:50 Room Air* 0 21 Medications Current Medications Medications (Trade) Dose Ordered Sig/Altaf Route PRN Reason Start Time Stop Time Status Last Admin Metronidazole 100 ml @ 100 mls/hr Q8HR IV 02/25/25 14:00 Piperacillin Sod/ Tazobactam Sod 100 ml @ 25 mls/hr Q6HR IV 02/25/25 18:00 Sodium Chloride 1,000 ml @ 60 mls/hr [id number] IV 02/25/25 11:15 02/25/25 12:23 DC 02/25/25 11:43 Acetaminophen/ Hydrocodone Bitart ([place] 5/325MG Tab) 1 tab Q4HP PRN PO MODERATE PAIN (4-6 PAIN SCALE) 02/25/25 11:15 02/25/25 11:22 DC Ondansetron HCl (Zofran) 4 mg Q4HP PRN IV NAUSEA / VOMITING 02/25/25 11:15 Acetaminophen (Tylenol Tablet) 650 mg Q6HP PRN PO PAIN SCALE 1-3 OR TEMP>100.4 02/25/25 11:15 02/25/25 11:22 DC Morphine Sulfate 2 mg Q4HPRN PRN IV SEVERE PAIN (7-10 PAIN SCALE) 02/25/25 11:15 02/25/25 12:23 DC Sodium Chloride 1,000 ml @ 100 mls/hr Q10H IV 02/25/25 12:30 02/25/25 12:28 Hydromorphone HCl (Dilaudid Injection) 1 mg Q4HPRN PRN IV SEVERE PAIN (7-10 PAIN SCALE) 02/25/25 12:30 02/25/25 12:48 Laboratory Labs Test 02/25/25 12:32 02/25/25 10:26 02/25/25 10:00 02/25/25 08:40 Range/Units Potassium Level 3.8 # 3.5-5.1 mmol/L Urine Color Light-yellow Yellow Urine Clarity Clear Clear Urine pH 7.0 5.0-9.0 Urine Specific [place] > 1.050 H 1.001-1.035 Urine Protein Negative Negative Urine Ketones 1+ H Negative Urine Blood Negative Negative /uL Urine Nitrite Negative Negative Urine Bilirubin Negative Negative Urine Urobilinogen Normal Negative mg/dL Urine Leukocyte Esterase Negative Negative /uL Urine RBC 1 0 - 4 /hpf Urine Microscopic WBC < 1 0-5 /HPF Urine Squamous Epithelial Cells Few <5 /hpf Urine Bacteria None seen None Seen /hpf Urine Glucose Normal Normal mg/dL Urine Opiates Screen Neg NEGATIVE Urine Fentanyl Screen Neg NEGATIVE Urine Barbiturates Screen Neg NEGATIVE Urine Phencyclidine Screen Neg NEGATIVE Urine Amphetamines Screen Neg NEGATIVE Urine Benzodiazepines Screen Neg NEGATIVE Urine Cocaine Screen Neg NEGATIVE Urine Cannabinoids Screen Neg NEGATIVE White Blood Count 16.5 H 4.4-10.8 10^3/uL Red Blood Count 4.74 4.0-5.20 10^6/uL Hemoglobin 13.7 12.2-16.2 g/dL Hematocrit 38.4 # 36.0-46.0 % Mean Corpuscular Volume 81.0 80.0-100.0 fL Mean Corpuscular Hemoglobin 28.9 28.0-32.0 pg Mean Corpuscular Hemoglobin Concent 35.6 32.0-36.0 g/dL Red Cell Distribution Width 13.8 11.8-14.3 % Platelet Count 349 140-450 10^3/uL Mean Platelet Volume 8.9 6.9-10.8 fL Neutrophils (%) (Auto) 88.4 H 37.0-80.0 % Lymphocytes (%) (Auto) 6.0 L 10.0-50.0 % Monocytes (%) (Auto) 5.0 0.0-12.0 % Eosinophils (%) (Auto) 0.3 0.0-7.0 % Basophils (%) (Auto) 0.3 0.0-2.0 % Neutrophils # (Auto) 14.6 H 1.6-8.6 10 ^3/uL Lymphocytes # (Auto) 1.0 0.4-5.4 10 ^3/uL Monocytes # (Auto) 0.8 0-1.3 10 ^3/uL Eosinophils # (Auto) 0 0-0.8 10 ^3/uL Basophils # (Auto) 0.1 0-0.2 10 ^3/uL Nucleated Red Blood Cells 0.0 % Prothrombin Time 11.3 9.3-11.8 sec Prothrombin Time INR 1.07 0.9-1.15 Sodium Level 135 #L 136-145 mmol/L Chloride Level 102 98-107 mmol/L Carbon Dioxide Level 21 20-31 mmol/L Anion Gap 12 5-15 Blood Urea Nitrogen 10 9-23 mg/dL Creatinine 0.90 0.550-1.02 mg/dL Glomerular Filtration Rate Calc 87 >90 mL/min BUN/Creatinine Ratio 11.1 10.0-20.0 Serum Glucose 97 74-106 mg/dL Calcium Level 8.9 8.7-10.4 mg/dL Total Bilirubin 0.9 0.2-1.0 mg/dL Aspartate Amino Transferase (AST) 55 H 13-40 U/L Alanine Aminotransferase (ALT) 24 7-40 U/L Alkaline Phosphatase 88 46-116 U/L Total Protein 7.8 5.7-8.2 g/dL Albumin 4.6 3.2-4.8 g/dL Examination: GENERAL:Normal, ABDOMEN:Abnormal (Nondistended, no scars, no hernias, soft, depressible, suprapubic exquisite tenderness. No rebound no guarding) Problem List/Assessment/Plan Problems: (1) Diverticulitis of intestine with perforation and abscess Assessment and Plan is a 34-year-old female who presented with H[place]hey 2 diverticulitis. Pain has been going on for the last [address] there is micro perforation of the sigmoid colon with pericolic stranding and a pelvic abscess measuring 2.8 x 3.3 cm. Patient also has a elevated white count of 16.5. Patient will benefit from admission IV antibiotics, and abscess drainage. I discussed the CT findings with the patient and her significant other, they agree with the plan. I also discussed with the patient and spouse that surgery is indicated only if patient condition progresses to peritonitis. 1. Recommend IR consultation for pelvic abscess drain placement 2. Strict NPO, ice chips okay for comfort 3. No GI cathartic medications 4. IV antibiotics: Zosyn 5. Pain and nausea control 6. Out of bed and ambulate 7. We will continue to monitor Plan discussed with Plan discussed with: Patient, Spouse Visit Coding Surgery Date of Service if different f: Feb 25, 2025 Billing Provider: PREMA POZO MD Surgery Visit Codes: [id number] - INP CONSULT <110 MIN PREMA POZO MD Feb 25, 2025 12:58
[2025-02-25 13:00] VITALS: BP 131/80; PULSE 110; RESP 18; TEMP 99.3; O2SAT 98
[2025-02-25 13:21] VITALS: BP 131/80; PULSE 110; RESP 16; TEMP 99.3; O2SAT 98
[2025-02-25] MEDS: PIPERACILLIN-TAZOB 3.375GM 100 ML IV SCH (16:50)
[2025-02-25 17:00] VITALS: BP 129/78; PULSE 107; RESP 17; TEMP 100.9; O2SAT 95
[2025-02-25] MEDS ORDERED: IBUPROFEN 600 MG TAB PO PRN ×2 (17:00→17:15)
[2025-02-25] MEDS: MORPHINE SULFATE INJ 2 MG/ml SYRG IV PRN (18:21)
[2025-02-25 20:00] VITALS: PULSE 104; RESP 22; O2SAT 97
[2025-02-25 21:00] VITALS: BP 117/70; PULSE 104; RESP 22; TEMP 98.7; O2SAT 97
[2025-02-26 01:00] VITALS: BP 96/65; PULSE 98; RESP 20; TEMP 98.1; O2SAT 22
[2025-02-26 05:00] VITALS: BP 115/67; PULSE 97; RESP 20; TEMP 98.9; O2SAT 95
[2025-02-26 06:39] LABS: Hematocrit 36.0 % (36.0-46.0); Hemoglobin 12.0 g/dL (12.2-16.2); Mean Corpuscular Hemoglobin 27.0 pg (28.0-32.0); Mean Corpuscular Volume 80.9 fL (80.0-100.0); Nucleated Red Blood Cells % 0.0 %
[2025-02-26 06:59] LABS: Alanine Aminotransferase 12 U/L (7-40); Albumin 4.1 g/dL (3.2-4.8); Alkaline Phosphatase 87 U/L (46-116); Anion Gap 12 (5-15); BUN/Creatinine Ratio 10.4 (10.0-20.0); Bilirubin, Total 1.2 mg/dL (0.2-1.0); Carbon Dioxide 26 mmol/L (20-31); Chloride 99 mmol/L (98-107); Glucose 95 mg/dL (74-106); Sodium 137 mmol/L (136-145); Total Protein 7.2 g/dL (5.7-8.2)
[2025-02-26 07:10] LABS: Blood Urea Nitrogen 8 mg/dL (9-23); Calcium 8.6 mg/dL (8.7-10.4); Potassium 3.5 mmol/L (3.5-5.1)
[2025-02-26 08:56] VITALS: BP 116/73; PULSE 86; RESP 20; TEMP 98.6; O2SAT 96
--- NOTE | 2025-02-26 11:14 | DVHPN2 ---
Progress Note - Surgical Date Seen: Feb 26, 2025 Post op day Post op day: 0 Subjective Review of Systems: Deferred Objective Vital signs Vital Sign Date Time Temp Pulse Resp B/P (MAP) Pulse Ox O2 Delivery O2 Flow Rate FiO2 02/26/25 09:35 86 20 116/73 02/26/25 08:56 98.6 96 98.6 02/25/25 20:00 Room Air* 0 21 Total Intake and Output 02/25/25 02/25/25 02/26/25 15:00 23:00 07:00 Intake Total 200 ml 0 ml Balance 200 ml 0 ml Medications Current Medications Medications Dose Ordered Sig/Altaf Route Start Time Stop Time Status Last Admin Dose Admin Piperacillin Sod/ Tazobactam Sod 100 ml @ 25 mls/hr Q6HR IV 02/25/25 18:00 02/26/25 05:46 25 MLS/HR Ondansetron HCl 4 mg Q4HP PRN IV 02/25/25 11:15 Sodium Chloride 1,000 ml @ 100 mls/hr Q10H IV 02/25/25 12:30 02/25/25 22:30 100 MLS/HR Hydromorphone HCl 1 mg Q4HPRN PRN IV 02/25/25 12:30 02/26/25 09:35 1 MG Morphine Sulfate 1 mg Q4HP PRN IV 02/25/25 16:30 02/25/25 18:21 1 MG Ibuprofen 600 mg Q4HPRN PRN PO 02/25/25 17:15 Laboratory Laboratory Tests 02/26/25 05:54 Test 02/26/25 05:54 Range/Units Serum Glucose 95 74-106 mg/dL Examination: ABDOMEN:Abnormal (Distended, soft, depressible, suprapubic tenderness, no rebound, no guarding) Labs and/or images reviewed: Labs reviewed by me (Leukocytosis slightly improved to 15.7 from 16.5) Problem List/Assessment/Plan Assessment and Plan is a 34-year-old female who presented with H[place] [address]. [address] there is micro perforation of the sigmoid colon with pericolic stranding and a pelvic abscess measuring 2.8 x 3.3 cm. Interval: Patient today feeling mostly the same, no BM. We will continue nonoperative management of [place] 2 diverticulitis with IV Zosyn, she will also need IR consultation for possible drain placement in the pelvic abscess. 1. Recommend IR consultation for pelvic abscess drain placement 2. Strict NPO, ice chips okay for comfort 3. No GI cathartic medications 4. IV antibiotics: Zosyn 5. Pain and nausea control 6. Out of bed and ambulate 7. We will continue to monitor 8. Okay for Colace (stool softener) Plan discussed with Plan discussed with: Patient Visit Coding Surgery Date of Service if different f: Feb 26, 2025 Billing Provider: PREMA POZO MD Surgery Visit Codes: [id number] INP/OBS CARE(HIGH) PREMA POZO MD Feb 26, 2025 11:14
[2025-02-26] MEDS: SODIUM CHLORIDE 0.9% 1,000 ML IV SCH (11:56)
[2025-02-26 12:25] VITALS: BP 118/74; PULSE 85; RESP 20; TEMP 98.4; O2SAT 95
[2025-02-26] MEDS ORDERED: HYDROMORPHONE HCL 1 MG/ML INJ IV PRN (15:00)
[2025-02-26] MEDS ORDERED: TPN PER PHARMACY 0 ML IV SCH (15:00)
--- NOTE | 2025-02-26 15:04 | DVHPN2 ---
Subjective Patient reporting 10/10 pain in her left lower quadrant Reviewed: Care Plan, H&P, Labs, Medications Changes from previous H/P or p: No Changes General: Per HPI Gastrointestinal: Nausea, Vomiting, Abdominal Pain Objective Vitals Vital Signs Date Time Temp Pulse Resp B/P (MAP) Pulse Ox O2 Delivery O2 Flow Rate FiO2 02/26/25 12:55 85 20 118/74 02/26/25 12:25 98.4 95 98.4 02/26/25 08:00 Nasal Cannula* 2 28 Intake/Output Intake and Output 02/26/25 07:00 Intake Total 200 ml Balance 200 ml Intake Oral 0 ml IV Total 200 ml # Voids 2 General Appearance: Alert, Oriented X3, Cooperative, mild distress HEENT: Atraumatic, PERRLA Lungs: Clear to auscultation, Normal air movement Cardiovascular: Normal S1, Normal S2 Abdomen: Normal bowel sounds, Soft, No hepatospenomegaly, Other (10/10 abdominal pain to left lower quadrant) Back: Flank Tenderness, Midline Tenderness Neuro: Normal gait, Normal speech Skin: Dry, Intact Psych/Mental Status: Mental status NL, Mood NL Medications Current Medications Medications Dose Ordered Sig/Altaf Route Start Time Stop Time Status Last Admin Dose Admin Piperacillin Sod/ Tazobactam Sod 100 ml @ 25 mls/hr Q6HR IV 02/25/25 18:00 02/26/25 11:56 25 MLS/HR Ondansetron HCl 4 mg Q4HP PRN IV 02/25/25 11:15 Hydromorphone HCl 1 mg Q4HPRN PRN IV 02/25/25 12:30 02/26/25 09:35 1 MG Dextrose/Sodium Chloride 1,000 ml @ 125 mls/hr Q8H IV 02/26/25 14:45 UNV Laboratory Results Laboratory Tests 02/26/25 05:54 Chemistry Test 02/26/25 05:54 Albumin 4.1 g/dL (3.2-4.8) Calcium Level 8.6 mg/dL (8.7-10.4) L Total Protein 7.2 g/dL (5.7-8.2) LFT Test 02/26/25 05:54 Alanine Aminotransferase (ALT) 12 U/L (7-40) Alkaline Phosphatase 87 U/L (46-116) Aspartate Amino Transferase (AST) 15 U/L (13-40) Total Bilirubin 1.2 mg/dL (0.2-1.0) H Urinalysis Test 02/25/25 10:00 Urine Color Light-yellow (Yellow) Urine Clarity Clear (Clear) Urine pH 7.0 (5.0-9.0) Urine Specific [place] > 1.050 (1.001-1.035) Urine Protein Negative (Negative) Urine Ketones 1+ (Negative) H Urine Blood Negative /uL (Negative) Urine Nitrite Negative (Negative) Urine Bilirubin Negative (Negative) Urine Urobilinogen Normal mg/dL (Negative) Urine Leukocyte Esterase Negative /uL (Negative) Urine RBC 1 /hpf (0 - 4) Urine Microscopic WBC < 1 /HPF (0-5) Urine Squamous Epithelial Cells Few /hpf (<5) Urine Bacteria None seen /hpf (None Seen) Urine Glucose Normal mg/dL (Normal) Microbiology Microbiology Date/Time Source Procedure Growth Status 02/25/25 12:31 Blood Blood Culture - Preliminary NO GROWTH AFTER 24 HOURS OF INCUBATION. Resulted 02/25/25 10:00 Voided Urine Urine Culture - Preliminary Resulted Labs and/or images reviewed: Labs reviewed by me, Image(s) reviewed by me Assessment/Plan Assessment/Plan Impression: -sepsis -perforated sigmoid diverticulitis -obesity -hyperkalemia Plan: -long discussion made with the patient regarding plan of care including interventional radiology consultation for abscess drain placement, NPO status, and pain management. -increase IV pain medication Q 3 hours -IV hydration -PICC line placement -surgical consultation: Recommendations reviewed -PUD, DVT prophylaxis -start TPN MR -daily labs Total time spent with patient discussing and formulating plan of care: 35 minutes. Total time spent with patient and family regarding advance care plannin minutes. This medical document was created using an electronic medical record system with [employer] dictation system. Although this document has been carefully reviewed, there may still be some phonetic and typographical errors. These areas are purely typographical due to imperfections of the software programs, and do not reflect any compromise in the patient's medical care. Plan discussed with: Patient, Spouse, Other (RN) My Orders Orders - KALYAN RIGGS PHOTOENGRAVING PHOTOGRAPHER Procedure Category Date Status Time Npo (Nothing By DIET 02/26/25 Transmitted Mouth) Diet Dinner D5w/Sod Chlo 0.9% PHA 02/26/25 Logged (D5w Ns 0.9%) 14:45 * Radiologist Consult CONS 02/26/25 Transmitted 14:45 Basic Metabolic Panel LAB 02/27/25 Verified 05:00 Basic Metabolic Panel LAB 02/28/25 Verified 05:00 Basic Metabolic Panel LAB 03/01/25 Verified 05:00 Magnesium LAB 02/27/25 Verified 05:00 Magnesium LAB 02/28/25 Verified 05:00 Magnesium LAB 03/01/25 Verified 05:00 * [employer] Worker CONS 02/26/25 Transmitted Consult Date of Service: Feb 26, 2025 Billing Provider: KALYAN RIGGS NP Common Visit Codes: [id number] INP/OBS CARE(HIGH) Secondary Visit Codes: [id number] CARE PLAN 30 MINUTES KALYAN RIGGS NP Feb 26, 2025 15:04
[2025-02-26] MEDS ORDERED: DEXTROSE (50%) 50ML SYRG IV SCH (16:30)
[2025-02-26] MEDS: LIDOCAINE 1% (LOCAL ANESTH.) PF 5ml SDV ID ONE (16:38)
[2025-02-26] MEDS: POTASSIUM CHL 20MEQ/100ML 100 ML IV ONE (16:53)
[2025-02-26] MEDS: D5W/SOD CHLO 0.9% 1,000 ML IV SCH (16:53)
[2025-02-26] MEDS: HYDROMORPHONE HCL 1 MG/ML INJ IV PRN (16:55)
[2025-02-26 17:02] VITALS: BP 129/81; PULSE 100; RESP 20; TEMP 98.5; O2SAT 96
[2025-02-26] MEDS: InsuLIN REG 1unit/0.01ml Soln (100units/ml) SC SCH (18:00)
[2025-02-26] MEDS: ACCU-CHEK COMFORT CURVE STRIP VI SCH (18:00)
[2025-02-26 21:00] VITALS: BP 128/80; PULSE 91; RESP 18; TEMP 98.3; O2SAT 99
[2025-02-26] MEDS: AMINO ACID INFUSION IN D10W 1,000 ML IV SCH (22:21)
[2025-02-26] MEDS: SODIUM CHLOR 0.9% PF (SALINE LOCK) 10ML VIAL/SYR IV SCH (22:32)
[2025-02-27 01:00] VITALS: BP 104/69; PULSE 87; RESP 18; TEMP 98.2; O2SAT 98
[2025-02-27] MEDS: LACTULOSE 20Gm/30ML SOLN PO ONE (04:30)
[2025-02-27 05:00] VITALS: BP 124/66; PULSE 92; RESP 18; TEMP 98.4; O2SAT 95
[2025-02-27 09:00] VITALS: BP 123/77; PULSE 98; RESP 17; TEMP 99.7; O2SAT 92
[2025-02-27] MEDS: ENOXAPARIN SOD 40 MG/0.4 ML SYRINGE SC SCH (09:16)
[2025-02-27] MEDS: PANTOPRAZOLE 40 MG/10 ML VIAL INJ IV SCH (09:17)
[2025-02-27 11:05] LABS: Alanine Aminotransferase 10 U/L (7-40); Albumin 3.4 g/dL (3.2-4.8); Alkaline Phosphatase 78 U/L (46-116); Anion Gap 9 (5-15); BUN/Creatinine Ratio 11.8 (10.0-20.0); Bilirubin, Total 0.6 mg/dL (0.2-1.0); Blood Urea Nitrogen 9 mg/dL (9-23); Calcium 7.5 mg/dL (8.7-10.4); Carbon Dioxide 25 mmol/L (20-31); Chloride 96 mmol/L (98-107); Magnesium 1.7 mg/dL (1.6-2.6); Potassium 3.5 mmol/L (3.5-5.1); Sodium 130 mmol/L (136-145); Total Protein 5.9 g/dL (5.7-8.2); Triglycerides 131 mg/dL (< 150)
[2025-02-27 11:07] LABS: Glucose 493 mg/dL (74-106)
[2025-02-27 13:00] VITALS: BP 121/71; PULSE 104; RESP 20; TEMP 98.8; O2SAT 94
--- NOTE | 2025-02-27 13:09 | DVHPN2 ---
Progress Note - Surgical Date Seen: Feb 27, 2025 Post op day Post op day: 0 Subjective Patient reports: No new complaints (States that she has been having lower abdominal pain but she was able to go to the bathroom today, she said hard manolo but lots came out. No blood in the stool) Review of Systems: Deferred Objective Vital signs Vital Sign Date Time Temp Pulse Resp B/P (MAP) Pulse Ox O2 Delivery O2 Flow Rate FiO2 02/27/25 09:15 98 17 123/77 02/27/25 09:00 99.7 92 99.7 02/27/25 08:00 Nasal Cannula* 2 28 Total Intake and Output 02/26/25 02/26/25 02/27/25 15:00 23:00 07:00 Intake Total 300 ml 0 ml Output Total 1 ml Balance 300 ml -1 ml Medications Current Medications Medications Dose Ordered Sig/Altaf Route Start Time Stop Time Status Last Admin Dose Admin Piperacillin Sod/ Tazobactam Sod 100 ml @ 25 mls/hr Q6HR IV 02/25/25 18:00 02/27/25 12:58 25 MLS/HR Ondansetron HCl 4 mg Q4HP PRN IV 02/25/25 11:15 Dextrose/Sodium Chloride 1,000 ml @ 125 mls/hr Q8H IV 02/26/25 14:45 02/26/25 16:53 125 MLS/HR Amino Acids 0 ml @ 0 mls/hr PER PHARMACY IV 02/26/25 15:00 Pantoprazole Sodium 40 mg DAILY IV 02/27/25 10:00 02/27/25 09:17 40 MG Enoxaparin Sodium 40 mg DAILY SC 02/27/25 10:00 02/27/25 09:16 40 MG Hydromorphone HCl 1.5 mg Q3HPRN PRN IV 02/26/25 15:30 02/27/25 09:15 1.5 MG Amino Acids/ Electrolytes/ Dextrose 1,000 ml @ 41 mls/hr DAILY@2200 IV 02/26/25 22:00 02/27/25 21:59 02/26/25 22:21 41 MLS/HR Diagnostic Test (Pha) 1 strip Q6HR 02/26/25 18:00 02/27/25 12:00 1 STRIP Insulin Human Regular FOLLOW SLIDING SCALE Q6HR SC 02/26/25 18:00 Dextrose 50 ml UD IV 02/26/25 16:30 Sodium Chloride 10 ml QSHIFT@10,22 IV 02/26/25 22:00 02/27/25 09:16 10 ML Fat Emulsion Intravenous 50 ml/ Sodium Chloride 20 meq/Potassium Phosphate 22 meq/ Calcium Gluconate 6.9 meq/Magnesium Sulfate 4 meq/ Multivitamins 10 ml/Chromium/ Copper/Manganese/ Zinc 1 ml/Amino Acids/Dextrose 1,086.8387 ml @ 45 mls/hr [id number] IV 02/27/25 22:00 02/28/25 21:59 Laboratory Laboratory Tests 02/27/25 09:30 02/26/25 05:54 Test 02/27/25 09:30 Range/Units Serum Glucose 493 *H 74-106 mg/dL Microbiology Date/Time Source Procedure Growth Status 02/25/25 12:31 Blood Blood Culture - Preliminary NO GROWTH AFTER 48 HOURS OF INCUBATION. Resulted 02/25/25 10:00 Voided Urine Urine Culture - Final Complete Examination: GENERAL:Abnormal (In pain), ABDOMEN:Abnormal (Mild distention, soft, depressible, suprapubic tenderness, no rebound no guarding) Labs and/or images reviewed: Labs reviewed by me (CBC still pending for today) Problem List/Assessment/Plan Assessment and Plan is a 34-year-old female who presented with Hinchey [address] there is micro perforation of the sigmoid colon with pericolic stranding and a pelvic abscess measuring 2.8 x 3.3 cm. Interval: Still having suprapubic pain although was able to have a bowel movement today, it was small hard stools, no blood. Still NPO no nausea no vomiting. We will continue nonoperative management of acute diverticulitis 1. Recommend IR consultation for pelvic abscess drain placement 2. Strict NPO, ice chips okay for comfort 3. Colace 100 mg p.o. b.i.d. (stool softener) ; no laxatives 4. IV antibiotics: Zosyn 5. Pain and nausea control 6. Out of bed and ambulate 7. We will continue to monitor My Orders My Orders Orders - PREMA POZO MD Procedure Category Date Status Time Docusate Sodium PHA 02/27/25 Verified Capsule (Colace 22:00 Plan discussed with Plan discussed with: Patient Visit Coding Surgery Date of Service if different f: Feb 27, 2025 Billing Provider: PREMA POZO MD Surgery Visit Codes: [id number] INP/OBS CARE(HIGH) PREMA POZO MD Feb 27, 2025 13:09
--- NOTE | 2025-02-27 13:58 | DVHPN2 ---
Subjective Patient reports some improvement with new pain regimen Reviewed: Care Plan, H&P, Labs, Medications Changes from previous H/P or p: Changes General: Per HPI Gastrointestinal: Nausea, Vomiting, Abdominal Pain Objective Vitals Vital Signs Date Time Temp Pulse Resp B/P (MAP) Pulse Ox O2 Delivery O2 Flow Rate FiO2 02/27/25 13:49 104 20 121/71 02/27/25 09:00 99.7 92 99.7 02/27/25 08:00 Nasal Cannula* 2 28 Intake/Output Intake and Output 02/27/25 07:00 Intake Total 300 ml Output Total 1 ml Balance 299 ml Intake Oral 300 ml Output Stool Total 1 ml # Voids 2 General Appearance: Alert, Oriented X3, Cooperative, mild distress HEENT: Atraumatic, PERRLA Lungs: Clear to auscultation, Normal air movement Cardiovascular: Normal S1, Normal S2 Abdomen: Normal bowel sounds, Soft, No hepatospenomegaly, Other (10/10 abdominal pain to left lower quadrant) Back: Flank Tenderness, Midline Tenderness Neuro: Normal gait, Normal speech Skin: Dry, Intact Psych/Mental Status: Mental status NL, Mood NL Medications Current Medications Medications Dose Ordered Sig/Altaf Route Start Time Stop Time Status Last Admin Dose Admin Piperacillin Sod/ Tazobactam Sod 100 ml @ 25 mls/hr Q6HR IV 02/25/25 18:00 02/27/25 12:58 25 MLS/HR Ondansetron HCl 4 mg Q4HP PRN IV 02/25/25 11:15 Amino Acids 0 ml @ 0 mls/hr PER PHARMACY IV 02/26/25 15:00 Pantoprazole Sodium 40 mg DAILY IV 02/27/25 10:00 02/27/25 09:17 40 MG Enoxaparin Sodium 40 mg DAILY SC 02/27/25 10:00 02/27/25 09:16 40 MG Hydromorphone HCl 1.5 mg Q3HPRN PRN IV 02/26/25 15:30 02/27/25 13:49 1.5 MG Amino Acids/ Electrolytes/ Dextrose 1,000 ml @ 41 mls/hr DAILY@2200 IV 02/26/25 22:00 02/27/25 21:59 02/26/25 22:21 41 MLS/HR Diagnostic Test (Pha) 1 strip Q6HR 02/26/25 18:00 02/27/25 12:00 1 STRIP Insulin Human Regular FOLLOW SLIDING SCALE Q6HR SC 02/26/25 18:00 Dextrose 50 ml UD IV 02/26/25 16:30 Sodium Chloride 10 ml QSHIFT@10,22 IV 02/26/25 22:00 02/27/25 09:16 10 ML Fat Emulsion Intravenous 50 ml/ Sodium Chloride 20 meq/Potassium Phosphate 22 meq/ Calcium Gluconate 6.9 meq/Magnesium Sulfate 4 meq/ Multivitamins 10 ml/Chromium/ Copper/Manganese/ Zinc 1 ml/Amino Acids/Dextrose 1,086.8387 ml @ 45 mls/hr [id number] IV 02/27/25 22:00 02/28/25 21:59 Docusate Sodium 100 mg BID PO 02/27/25 22:00 Sodium Chloride 1,000 ml @ 100 mls/hr Q10H IV 02/27/25 14:00 UNV Laboratory Results Laboratory Tests 02/26/25 05:54 02/27/25 09:30 Chemistry Test 02/27/25 09:30 Albumin 3.4 g/dL (3.2-4.8) Calcium Level 7.5 mg/dL (8.7-10.4) L Magnesium Level 1.7 mg/dL (1.6-2.6) Phosphorus Level 1.8 mg/dL (2.4-5.1) L Total Protein 5.9 g/dL (5.7-8.2) Lipid panel Test 02/27/25 09:30 Triglycerides Level 131 mg/dL (< 150) LFT Test 02/27/25 09:30 Alanine Aminotransferase (ALT) 10 U/L (7-40) Alkaline Phosphatase 78 U/L (46-116) Aspartate Amino Transferase (AST) 15 U/L (13-40) Total Bilirubin 0.6 mg/dL (0.2-1.0) Urinalysis Test 02/25/25 10:00 Urine Color Light-yellow (Yellow) Urine Clarity Clear (Clear) Urine pH 7.0 (5.0-9.0) Urine Specific [place] > 1.050 (1.001-1.035) Urine Protein Negative (Negative) Urine Ketones 1+ (Negative) H Urine Blood Negative /uL (Negative) Urine Nitrite Negative (Negative) Urine Bilirubin Negative (Negative) Urine Urobilinogen Normal mg/dL (Negative) Urine Leukocyte Esterase Negative /uL (Negative) Urine RBC 1 /hpf (0 - 4) Urine Microscopic WBC < 1 /HPF (0-5) Urine Squamous Epithelial Cells Few /hpf (<5) Urine Bacteria None seen /hpf (None Seen) Urine Glucose Normal mg/dL (Normal) Microbiology Microbiology Date/Time Source Procedure Growth Status 02/25/25 12:31 Blood Blood Culture - Preliminary NO GROWTH AFTER 48 HOURS OF INCUBATION. Resulted 02/25/25 10:00 Voided Urine Urine Culture - Final Complete Labs and/or images reviewed: Labs reviewed by me, Image(s) reviewed by me Assessment/Plan Assessment/Plan Impression: -sepsis -perforated sigmoid diverticulitis -obesity -hyperkalemia Plan: Events: Discussed case with interventional radiologist who states there is no abscess to drain at this time. -Pain management: Continue Dilaudid 1.5 mg IV q.3 hours as needed -continue TPN and normal saline at 100 mL/hour -surgical consultation with recommendations reviewed -PUD, DVT prophylaxis -daily labs Total time spent with patient discussing and formulating plan of care: 35 minutes. This medical document was created using an electronic medical record system with [employer] dictation system. Although this document has been carefully reviewed, there may still be some phonetic and typographical errors. These areas are purely typographical due to imperfections of the software programs, and do not reflect any compromise in the patient's medical care. Plan discussed with: Patient, Other (RN) My Orders Orders - KALYAN RIGGS [employer] [facility] [employer] Procedure Category Date Status Time Npo (Nothing By DIET 02/26/25 Transmitted Mouth) Diet Dinner * Radiologist Consult CONS 02/26/25 Transmitted 14:45 Basic Metabolic Panel LAB 03/01/25 Verified 05:00 Magnesium LAB 02/28/25 Verified 05:00 Magnesium LAB 03/01/25 Verified 05:00 * Medical Assembly CONS 02/26/25 Transmitted Consult * Picc Line Consult CONS 02/26/25 Transmitted 14:59 Tpn Per Pharmacy PHA 02/26/25 In Process 15:00 Pantoprazole PHA 02/27/25 In Process (Protonix) 10:00 Enoxaparin Sodium PHA 02/27/25 In Process (Lovenox) 10:00 Hydromorphone Hcl Inj PHA 02/26/25 In Process (Dilaudid Injectio 15:30 Amino Acid Infusion PHA 02/26/25 In Process In D10w (Clinimix 4. 22:00 Glucose Blood PHA 02/26/25 In Process (Accu-Chek Comfort 18:00 Insulin R (Human) PHA 02/26/25 In Process (Insulin R) 18:00 Dextrose 50% Syringe PHA 02/26/25 In Process 16:30 Nursing Protocol Picc [facility] 02/26/25 In Process 16:31 Change Dressing Prn [facility] 02/26/25 In Process 16:31 Sodium Chloride Lock PHA 02/26/25 In Process (Saline Lock Ns) 22:00 Do Not Use Picc For [facility] 02/26/25 In Process Blood Cult 16:31 May Draw Blood From [facility] 02/26/25 In Process Picc 16:31 Ok To Use Picc [facility] 02/26/25 In Process 16:31 Change Picc Dressing [facility] 02/26/25 In Process Q7 Days 16:31 Tpn Per Pharmacy [facility] 02/26/25 In Process 22:00 Amino Acid PHA 02/27/25 In Process Infusion... W/Fat 22:00 Sodium Phosphates PHA 02/27/25 In Process 12:15 Phosphorus LAB 02/28/25 Verified 05:00 Comprehensive LAB 02/28/25 Verified Metabolic Panel 05:00 Tpn Per Pharmacy [facility] 02/27/25 In Process 22:00 Complete Blood Count LAB 02/28/25 Verified 04:00 Sodium Chloride 0.9% PHA 02/27/25 Logged 14:00 Date of Service: Feb 27, 2025 Billing Provider: KALYAN RIGGS NP Common Visit Codes: [id number] INP/OBS CARE(HIGH) KALYAN RIGGS NP Feb 27, 2025 13:58
[2025-02-27] MEDS: SODIUM CHLORIDE 0.9% 1,000 ML IV SCH (14:19)
[2025-02-27 16:52] VITALS: BP 116/81; PULSE 101; RESP 19; TEMP 99.8; O2SAT 97
[2025-02-27] MEDS: SODIUM PHOSPHATES 40 MEQ in D5W 5% 250 ML IV ONE (17:21)
[2025-02-27 21:00] VITALS: BP 117/73; PULSE 90; RESP 18; TEMP 97.9; O2SAT 99
[2025-02-27] MEDS: DOCUSATE SOD 100 MG CAP PO SCH (21:17)
[2025-02-27] MEDS: TPN PER PHARMACY IV NR (21:24)
[2025-02-28] VITALS (8 sets, daily range): BP systolic 118–146; BP diastolic 70–87; PULSE 84–98; RESP 14–18; TEMP 97.5–99.1; O2SAT 92–98
[2025-02-28] MEDS: GASTROGRAFIN 30 ML SOL ONE (07:03)
[2025-02-28 07:18] LABS: Hematocrit 30.1 % (36.0-46.0); Hemoglobin 10.5 g/dL (12.2-16.2); Mean Corpuscular Hemoglobin 27.9 pg (28.0-32.0); Mean Corpuscular Volume 80.1 fL (80.0-100.0); Nucleated Red Blood Cells % 0.1 %
[2025-02-28 07:26] LABS: Alkaline Phosphatase 81 U/L (46-116); Anion Gap 9 (5-15); Carbon Dioxide 29 mmol/L (20-31); Chloride 100 mmol/L (98-107); Sodium 138 mmol/L (136-145)
[2025-02-28 07:27] LABS: BUN/Creatinine Ratio 9.8 (10.0-20.0); Magnesium 1.9 mg/dL (1.6-2.6); Total Protein 6.6 g/dL (5.7-8.2)
[2025-02-28 07:28] LABS: Albumin 3.7 g/dL (3.2-4.8)
[2025-02-28 07:29] LABS: Bilirubin, Total 0.6 mg/dL (0.2-1.0)
[2025-02-28 07:30] LABS: Alanine Aminotransferase < 9 U/L (7-40); Blood Urea Nitrogen 6 mg/dL (9-23); Calcium 8.2 mg/dL (8.7-10.4); Glucose 120 mg/dL (74-106); Potassium 3.2 mmol/L (3.5-5.1)
[2025-02-28] MEDS: POTASSIUM CHL 20MEQ/100ML 100 ML IV SCH ×2 (12:01→20:19)
--- NOTE | 2025-02-28 12:44 | DVHPN2 ---
Progress Note - Surgical Date Seen: Feb 28, 2025 Post op day Post op day: 0 Subjective Patient reports: Feels better (Patient feels slightly better, had another bowel movement and it was bloody, afebrile with vital stable.) Review of Systems: Deferred Objective Vital signs Vital Sign Date Time Temp Pulse Resp B/P (MAP) Pulse Ox O2 Delivery O2 Flow Rate FiO2 02/28/25 09:52 84 18 118/73 02/28/25 08:46 97.5 98 97.5 02/27/25 20:00 Room Air* 0 21 Total Intake and Output 02/27/25 02/27/25 02/28/25 15:00 23:00 07:00 Intake Total 100 ml 100 ml 0 ml Balance 100 ml 100 ml 0 ml Medications Current Medications Medications Dose Ordered Sig/Altaf Route Start Time Stop Time Status Last Admin Dose Admin Piperacillin Sod/ Tazobactam Sod 100 ml @ 25 mls/hr Q6HR IV 02/25/25 18:00 02/28/25 06:11 25 MLS/HR Ondansetron HCl 4 mg Q4HP PRN IV 02/25/25 11:15 Amino Acids 0 ml @ 0 mls/hr PER PHARMACY IV 02/26/25 15:00 Pantoprazole Sodium 40 mg DAILY IV 02/27/25 10:00 02/28/25 09:51 40 MG Enoxaparin Sodium 40 mg DAILY SC 02/27/25 10:00 02/28/25 09:50 40 MG Hydromorphone HCl 1.5 mg Q3HPRN PRN IV 02/26/25 15:30 02/28/25 09:52 1.5 MG Diagnostic Test (Pha) 1 strip Q6HR 02/26/25 18:00 02/28/25 12:10 1 STRIP Insulin Human Regular FOLLOW SLIDING SCALE Q6HR SC 02/26/25 18:00 02/28/25 12:09 2 UNITS Dextrose 50 ml UD IV 02/26/25 16:30 Sodium Chloride 10 ml QSHIFT@10,22 IV 02/26/25 22:00 02/28/25 12:07 10 ML Fat Emulsion Intravenous 50 ml/ Sodium Chloride 20 meq/Potassium Phosphate 22 meq/ Calcium Gluconate 6.9 meq/Magnesium Sulfate 4 meq/ Multivitamins 10 ml/Chromium/ Copper/Manganese/ Zinc 1 ml/Amino Acids/Dextrose 1,086.8387 ml @ 45 mls/hr [id number] IV 02/27/25 22:00 02/28/25 21:59 02/27/25 21:24 45 MLS/HR Docusate Sodium 100 mg BID PO 02/27/25 22:00 02/28/25 09:50 100 MG Sodium Chloride 1,000 ml @ 100 mls/hr Q10H IV 02/27/25 14:00 02/28/25 12:07 100 MLS/HR Tramadol HCl 50 mg Q6HP PRN PO 02/27/25 20:30 Fat Emulsion Intravenous 100 ml/Sodium Chloride 20 meq/ Potassium Chloride 20 meq/ Potassium Phosphate 22 meq/ Calcium Gluconate 6.9 meq/Magnesium Sulfate 4 meq/ Multivitamins 10 ml/Chromium/ Copper/Manganese/ Zinc 1 ml/Amino Acids/Dextrose 1,346.8387 ml @ 56 mls/hr Q24H4M IV 02/28/25 22:00 03/01/25 21:59 Potassium Chloride 100 ml @ 50 mls/hr Q2H IV 02/28/25 10:15 02/28/25 14:14 02/28/25 12:01 50 MLS/HR Laboratory Laboratory Tests 02/28/25 06:19 Test 02/28/25 06:19 Range/Units Serum Glucose 120 H 74-106 mg/dL Microbiology Date/Time Source Procedure Growth Status 02/25/25 12:31 Blood Blood Culture - Preliminary NO GROWTH AFTER 48 HOURS OF INCUBATION. Resulted 02/25/25 10:00 Voided Urine Urine Culture - Final Complete Examination: GENERAL:Normal, ABDOMEN:Normal (Nondistended, soft, depressible, suprapubic tenderness (improved), no rebound, no guarding) Labs and/or images reviewed: Labs reviewed by me (No leukocytosis) Problem List/Assessment/Plan Assessment and Plan is a 34-year-old female who presented with Hinchey [address] there is micro perforation of the sigmoid colon with pericolic stranding and a pelvic abscess measuring 2.8 x 3.3 cm. Interval: Patient's pain has improved, tenderness much improved. Leukocytosis resolved. We will continue with bowel rest and re-evaluate tomorrow. We will continue nonoperative management of acute diverticulitis 1. Strict NPO, ice chips okay for comfort 2. Colace 100 mg p.o. b.i.d. (stool softener) ; no laxatives 3. IV antibiotics: Zosyn 4. Pain and nausea control 5. Out of bed and ambulate 6. We will continue to monitor My Orders My Orders Orders - PREMA POZO MD Procedure Category Date Status Time Docusate Sodium PHA 02/27/25 In Process Capsule (Colace 22:00 Plan discussed with Plan discussed with: Patient Visit Coding Surgery Date of Service if different f: Feb 28, 2025 Billing Provider: PREMA POZO MD Surgery Visit Codes: [id number] INP/OBS CARE(HIGH) PREMA POZO MD Feb 28, 2025 12:44
--- NOTE | 2025-02-28 12:45 | DVHPN2 ---
Subjective Patient reports some improvement with new pain regimen Reviewed: Care Plan, H&P, Labs, Medications Changes from previous H/P or p: No Changes General: Per HPI Gastrointestinal: Nausea, Vomiting, Abdominal Pain Objective Vitals Vital Signs Date Time Temp Pulse Resp B/P (MAP) Pulse Ox O2 Delivery O2 Flow Rate FiO2 02/28/25 09:52 84 18 118/73 02/28/25 08:46 97.5 98 97.5 02/27/25 20:00 Room Air* 0 21 Intake/Output Intake and Output 02/28/25 07:00 Intake Total 200 ml Balance 200 ml Intake Oral 0 ml IV Total 200 ml # Voids 3 General Appearance: Alert, Oriented X3, Cooperative, mild distress HEENT: Atraumatic, PERRLA Lungs: Clear to auscultation, Normal air movement Cardiovascular: Normal S1, Normal S2 Abdomen: Normal bowel sounds, Soft, No hepatospenomegaly, Other (10/10 abdominal pain to left lower quadrant) Back: Flank Tenderness, Midline Tenderness Neuro: Normal gait, Normal speech Skin: Dry, Intact Psych/Mental Status: Mental status NL, Mood NL Medications Current Medications Medications Dose Ordered Sig/Altaf Route Start Time Stop Time Status Last Admin Dose Admin Piperacillin Sod/ Tazobactam Sod 100 ml @ 25 mls/hr Q6HR IV 02/25/25 18:00 02/28/25 06:11 25 MLS/HR Ondansetron HCl 4 mg Q4HP PRN IV 02/25/25 11:15 Amino Acids 0 ml @ 0 mls/hr PER PHARMACY IV 02/26/25 15:00 Pantoprazole Sodium 40 mg DAILY IV 02/27/25 10:00 02/28/25 09:51 40 MG Enoxaparin Sodium 40 mg DAILY SC 02/27/25 10:00 02/28/25 09:50 40 MG Hydromorphone HCl 1.5 mg Q3HPRN PRN IV 02/26/25 15:30 02/28/25 09:52 1.5 MG Diagnostic Test (Pha) 1 strip Q6HR 02/26/25 18:00 02/28/25 12:10 1 STRIP Insulin Human Regular FOLLOW SLIDING SCALE Q6HR SC 02/26/25 18:00 02/28/25 12:09 2 UNITS Dextrose 50 ml UD IV 02/26/25 16:30 Sodium Chloride 10 ml QSHIFT@10,22 IV 02/26/25 22:00 02/28/25 12:07 10 ML Fat Emulsion Intravenous 50 ml/ Sodium Chloride 20 meq/Potassium Phosphate 22 meq/ Calcium Gluconate 6.9 meq/Magnesium Sulfate 4 meq/ Multivitamins 10 ml/Chromium/ Copper/Manganese/ Zinc 1 ml/Amino Acids/Dextrose 1,086.8387 ml @ 45 mls/hr [id number] IV 02/27/25 22:00 02/28/25 21:59 02/27/25 21:24 45 MLS/HR Docusate Sodium 100 mg BID PO 02/27/25 22:00 02/28/25 09:50 100 MG Sodium Chloride 1,000 ml @ 100 mls/hr Q10H IV 02/27/25 14:00 02/28/25 12:07 100 MLS/HR Fat Emulsion Intravenous 100 ml/Sodium Chloride 20 meq/ Potassium Chloride 20 meq/ Potassium Phosphate 22 meq/ Calcium Gluconate 6.9 meq/Magnesium Sulfate 4 meq/ Multivitamins 10 ml/Chromium/ Copper/Manganese/ Zinc 1 ml/Amino Acids/Dextrose 1,346.8387 ml @ 56 mls/hr Q24H4M IV 02/28/25 22:00 03/01/25 21:59 Potassium Chloride 100 ml @ 50 mls/hr Q2H IV 02/28/25 10:15 02/28/25 14:14 02/28/25 12:01 50 MLS/HR Laboratory Results Laboratory Tests 02/28/25 06:19 Chemistry Test 02/28/25 06:19 Albumin 3.7 g/dL (3.2-4.8) Calcium Level 8.2 mg/dL (8.7-10.4) L Magnesium Level 1.9 mg/dL (1.6-2.6) Phosphorus Level 2.8 mg/dL (2.4-5.1) Total Protein 6.6 g/dL (5.7-8.2) LFT Test 02/28/25 06:19 Alanine Aminotransferase (ALT) < 9 U/L (7-40) Alkaline Phosphatase 81 U/L (46-116) Aspartate Amino Transferase (AST) 11 U/L (13-40) L Total Bilirubin 0.6 mg/dL (0.2-1.0) Urinalysis Test 02/25/25 10:00 Urine Color Light-yellow (Yellow) Urine Clarity Clear (Clear) Urine pH 7.0 (5.0-9.0) Urine Specific [place] > 1.050 (1.001-1.035) Urine Protein Negative (Negative) Urine Ketones 1+ (Negative) H Urine Blood Negative /uL (Negative) Urine Nitrite Negative (Negative) Urine Bilirubin Negative (Negative) Urine Urobilinogen Normal mg/dL (Negative) Urine Leukocyte Esterase Negative /uL (Negative) Urine RBC 1 /hpf (0 - 4) Urine Microscopic WBC < 1 /HPF (0-5) Urine Squamous Epithelial Cells Few /hpf (<5) Urine Bacteria None seen /hpf (None Seen) Urine Glucose Normal mg/dL (Normal) Microbiology Microbiology Date/Time Source Procedure Growth Status 02/25/25 12:31 Blood Blood Culture - Preliminary NO GROWTH AFTER 48 HOURS OF INCUBATION. Resulted 02/25/25 10:00 Voided Urine Urine Culture - Final Complete Labs and/or images reviewed: Labs reviewed by me, Image(s) reviewed by me Assessment/Plan Assessment/Plan Impression: -sepsis -perforated sigmoid diverticulitis -obesity -hyperkalemia Plan: Events: White blood cell count improving. Continues to have tender abdomen. Repeat CT scan with IV contrast tomorrow. -Pain management: Continue Dilaudid 1.5 mg IV q.3 hours as needed -continue TPN and normal saline at 100 mL/hour -surgical consultation with recommendations reviewed -PUD, DVT prophylaxis -daily labs Total time spent with patient discussing and formulating plan of care: 35 minutes. This medical document was created using an electronic medical record system with [employer] dictation system. Although this document has been carefully reviewed, there may still be some phonetic and typographical errors. These areas are purely typographical due to imperfections of the software programs, and do not reflect any compromise in the patient's medical care. Plan discussed with: Patient, Other (RN) My Orders Orders - KALYAN RIGGS [employer] Procedure Category Date Status Time Sodium Chloride 0.9% PHA 02/27/25 In Process 14:00 Amino Acid PHA 02/28/25 In Process Infusion... W/Fat 22:00 Potassium Chl PHA 02/28/25 In Process 20meq/100ml 10:15 Comprehensive LAB 03/01/25 Verified Metabolic Panel 05:00 Phosphorus LAB 03/01/25 Verified 05:00 Tpn Per Pharmacy [facility] 02/28/25 In Process 10:13 Stool Occult Blood LAB 02/28/25 Logged 10:59 * Dietary Consult CONS 02/28/25 Transmitted 12:26 Complete Blood Count LAB 03/01/25 Verified 04:00 Date of Service: Feb 28, 2025 Billing Provider: KALYAN RIGGS NP Common Visit Codes: [id number] INP/OBS CARE(HIGH) KALYAN RIGGS NP Feb 28, 2025 12:45
[2025-02-28] MEDS: TPN PER PHARMACY IV NR (21:46)
[2025-03-01] VITALS (9 sets, daily range): BP systolic 117–134; BP diastolic 76–87; PULSE 86–100; RESP 17–19; TEMP 97.6–99.8; O2SAT 95–98
[2025-03-01 05:25] LABS: Hematocrit 29.6 % (36.0-46.0); Hemoglobin 10.2 g/dL (12.2-16.2); Mean Corpuscular Hemoglobin 27.6 pg (28.0-32.0); Mean Corpuscular Volume 79.8 fL (80.0-100.0); Nucleated Red Blood Cells % 0.0 %
[2025-03-01 05:48] LABS: Alanine Aminotransferase 10 U/L (7-40); Albumin 3.9 g/dL (3.2-4.8); Alkaline Phosphatase 85 U/L (46-116); Anion Gap 10 (5-15); BUN/Creatinine Ratio 7.5 (10.0-20.0); Bilirubin, Total 0.7 mg/dL (0.2-1.0); Blood Urea Nitrogen 5 mg/dL (9-23); Calcium 8.7 mg/dL (8.7-10.4); Carbon Dioxide 28 mmol/L (20-31); Chloride 101 mmol/L (98-107); Glucose 124 mg/dL (74-106); Magnesium 1.9 mg/dL (1.6-2.6); Potassium 3.2 mmol/L (3.5-5.1); Sodium 139 mmol/L (136-145); Total Protein 6.9 g/dL (5.7-8.2)
[2025-03-01] MEDS: IOHEXOL 300 MG/ML 100ML BOTTLE IJ ONE ×2 (09:31)
--- NOTE | 2025-03-01 09:42 | DVHPN2 ---
Progress Note - Surgical Date Seen: Mar 01, 2025 Post op day Post op day: 0 Subjective Patient reports: No new complaints (Patient states that she is feeling the same without improvement but at the same time she is able to tolerate longer periods without pain medicines. She had 2 bowel movements yesterday does not recall that were bloody she had some pain suprapubic with the movements although she states that they are coming out easier now and softer.) Review of Systems: Deferred Objective Vital signs Vital Sign Date Time Temp Pulse Resp B/P (MAP) Pulse Ox O2 Delivery O2 Flow Rate FiO2 03/01/25 05:00 98.6 100 17 119/80 (93) 98 98.6 02/28/25 20:00 Room Air* 0 21 Total Intake and Output 02/28/25 02/28/25 03/01/25 15:00 23:00 07:00 Intake Total 0 ml 0 ml Output Total 1100 ml Balance 0 ml -1100 ml Medications Current Medications Medications Dose Ordered Sig/Altaf Route Start Time Stop Time Status Last Admin Dose Admin Piperacillin Sod/ Tazobactam Sod 100 ml @ 25 mls/hr Q6HR IV 02/25/25 18:00 03/01/25 06:37 25 MLS/HR Ondansetron HCl 4 mg Q4HP PRN IV 02/25/25 11:15 Amino Acids 0 ml @ 0 mls/hr PER PHARMACY IV 02/26/25 15:00 Pantoprazole Sodium 40 mg DAILY IV 02/27/25 10:00 02/28/25 09:51 40 MG Enoxaparin Sodium 40 mg DAILY SC 02/27/25 10:00 02/28/25 16:57 40 MG Hydromorphone HCl 1.5 mg Q3HPRN PRN IV 02/26/25 15:30 03/01/25 01:48 1.5 MG Diagnostic Test (Pha) 1 strip Q6HR 02/26/25 18:00 03/01/25 06:36 1 STRIP Insulin Human Regular FOLLOW SLIDING SCALE Q6HR SC 02/26/25 18:00 02/28/25 12:09 2 UNITS Dextrose 50 ml UD IV 02/26/25 16:30 Sodium Chloride 10 ml QSHIFT@10,22 IV 02/26/25 22:00 02/28/25 21:57 10 ML Docusate Sodium 100 mg BID PO 02/27/25 22:00 02/28/25 21:43 100 MG Sodium Chloride 1,000 ml @ 100 mls/hr Q10H IV 02/27/25 14:00 03/01/25 06:00 100 MLS/HR Fat Emulsion Intravenous 100 ml/Sodium Chloride 20 meq/ Potassium Chloride 20 meq/ Potassium Phosphate 22 meq/ Calcium Gluconate 6.9 meq/Magnesium Sulfate 4 meq/ Multivitamins 10 ml/Chromium/ Copper/Manganese/ Zinc 1 ml/Amino Acids/Dextrose 1,346.8387 ml @ 56 mls/hr Q24H4M IV 02/28/25 22:00 03/01/25 21:59 02/28/25 21:46 56 MLS/HR Laboratory Laboratory Tests 03/01/25 04:47 Test 03/01/25 04:47 Range/Units Serum Glucose 124 H 74-106 mg/dL Microbiology Date/Time Source Procedure Growth Status 02/25/25 12:31 Blood Blood Culture - Preliminary NO GROWTH AFTER 72 HOURS OF INCUBATION. Resulted 02/25/25 10:00 Voided Urine Urine Culture - Final Complete Examination: GENERAL:Normal, ABDOMEN:Abnormal (Nondistended, soft, depressible, suprapubic tenderness, no rebound, no guarding) Labs and/or images reviewed: Labs reviewed by me (No leukocytosis white count holding steady at 10.5) Problem List/Assessment/Plan Assessment and Plan is a 34-year-old female who presented with Hinchey [address]. [address] there is micro perforation of the sigmoid colon with pericolic stranding and a pelvic abscess measuring 2.8 x 3.3 cm. Interval: Yesterday in Interventional Radiology evaluated and said they could not see a drainable abscess. Patient is scheduled to get another CT abdomen pelvis today. We will continue with nonoperative management at this point. 1. NPO, ice chips okay for comfort 2. Colace 100 mg p.o. b.i.d. (stool softener) ; no laxatives 3. IV antibiotics: Zosyn 4. Pain and nausea control 5. Out of bed and ambulate 6. We will continue to monitor 7. Follow-up CT abdomen and pelvis Plan discussed with Plan discussed with: Patient Visit Coding Surgery Date of Service if different f: Mar 01, 2025 Billing Provider: PREMA POZO MD Surgery Visit Codes: [id number] INP/OBS CARE(HIGH) PREMA POZO MD Mar 01, 2025 09:42
--- NOTE | 2025-03-01 12:30 | DVH ---
EXAM: CT CT AB PEL WITH IV CON ONLY HISTORY: reassess perforated diverticulitis TECHNIQUE: Volumetric multidetector CT images of the abdomen and pelvis were obtained after the admin istration of intravenous contrast. All CT scans at this facility use dose modulation, iterative recon struction, and/or weight based dosing when appropriate to reduce radiation dose to as low as reasonab ly achievable. COMPARISON: CT CT AB PEL WITH IV CON ONLY on DOS: 02/25/25 FINDINGS: [LOWER CHEST]: The partially visualized lung bases are clear without a pleural effusion. [LIVER]: Small area of hypoattenuation along the falciform ligament, which is statistically most like ly a small amount of fatty infiltration. [GALLBLADDER AND BILIARY TREE]: No cholelithiasis. [SPLEEN]: Unremarkable. [PANCREAS]: Unremarkable. [ADRENAL GLANDS]: Unremarkable [KIDNEYS]: No hydronephrosis. No nephroureterolithiasis. [BLADDER]: Unremarkable for the degree distention. [REPRODUCTIVE ORGANS]: Unremarkable. [BOWEL/MESENTERY]: Stomach is normal. No CT evidence of bowel obstruction. pericolonic abscess extend ing along the pelvic cul-de-sac extending from the posterior/anti mesenteric margin of the sigmoid co ana. Propagation posterior to the uterus. Overall size of the abscess has increased in size measuri ng 5.9 x 3.8 cm. Superior margin of the enlarging complex fluid collection measures 4.8 x 4.3 cm. Imm ediately adjacent to anti mesenteric margin likely area of perforation (axial 74). [ASCITES]: Mild ascites [LYMPHADENOPATHY]: Multiple likely reactive retroperitoneal lymph nodes. [VASCULATURE]: No aneurysmal dilatation. [ABDOMINAL WALL]: Unremarkable. [MUSCULOSKELETAL]: No acute fracture or aggressive focal osseous lesion. IMPRESSION: 1. Enlarging pericolonic abscess extending from the anti mesenteric margin of the sigmoid colon. 2. Mild ascites. 3. Suspected evidence of perforated diverticula along the posterior anti mesenteric margin of the pro ximal sigmoid colon. 4. Surgical consultation recommended
[2025-03-01] MEDS: POTASSIUM CHL 20MEQ/100ML 100 ML IV SCH (14:50)
--- NOTE | 2025-03-01 15:01 | DVHPN2 ---
Subjective Patient reports some improvement with new pain regimen Reviewed: Care Plan, H&P, Labs, Medications Changes from previous H/P or p: No Changes General: Per HPI Gastrointestinal: Nausea, Vomiting, Abdominal Pain Objective Vitals Vital Signs Date Time Temp Pulse Resp B/P (MAP) Pulse Ox O2 Delivery O2 Flow Rate FiO2 03/01/25 14:15 98.4 87 17 117/80 (92) 95 98.4 03/01/25 08:00 Room Air* 0 21 Intake/Output Intake and Output 03/01/25 06:59 Intake Total 0 ml Output Total 1100 ml Balance -1100 ml Intake Oral 0 ml Output Urine Total 1100 ml # Voids 3 # Bowel Movements 2 General Appearance: Alert, Oriented X3, Cooperative, mild distress HEENT: Atraumatic, PERRLA Lungs: Clear to auscultation, Normal air movement Cardiovascular: Normal S1, Normal S2 Abdomen: Normal bowel sounds, Soft, No hepatospenomegaly, Other (10/10 abdominal pain to left lower quadrant) Back: Flank Tenderness, Midline Tenderness Neuro: Normal gait, Normal speech Skin: Dry, Intact Psych/Mental Status: Mental status NL, Mood NL Medications Current Medications Medications Dose Ordered Sig/Altaf Route Start Time Stop Time Status Last Admin Dose Admin Piperacillin Sod/ Tazobactam Sod 100 ml @ 25 mls/hr Q6HR IV 02/25/25 18:00 03/01/25 12:35 25 MLS/HR Ondansetron HCl 4 mg Q4HP PRN IV 02/25/25 11:15 Amino Acids 0 ml @ 0 mls/hr PER PHARMACY IV 02/26/25 15:00 Pantoprazole Sodium 40 mg DAILY IV 02/27/25 10:00 03/01/25 09:49 40 MG Enoxaparin Sodium 40 mg DAILY SC 02/27/25 10:00 03/01/25 09:49 40 MG Hydromorphone HCl 1.5 mg Q3HPRN PRN IV 02/26/25 15:30 03/01/25 12:52 1.5 MG Diagnostic Test (Pha) 1 strip Q6HR 02/26/25 18:00 03/01/25 12:14 1 STRIP Insulin Human Regular FOLLOW SLIDING SCALE Q6HR SC 02/26/25 18:00 02/28/25 12:09 2 UNITS Dextrose 50 ml UD IV 02/26/25 16:30 Sodium Chloride 10 ml QSHIFT@10,22 IV 02/26/25 22:00 03/01/25 10:30 10 ML Docusate Sodium 100 mg BID PO 02/27/25 22:00 03/01/25 12:34 100 MG Sodium Chloride 1,000 ml @ 100 mls/hr Q10H IV 02/27/25 14:00 03/01/25 10:31 100 MLS/HR Fat Emulsion Intravenous 100 ml/Sodium Chloride 20 meq/ Potassium Chloride 20 meq/ Potassium Phosphate 22 meq/ Calcium Gluconate 6.9 meq/Magnesium Sulfate 4 meq/ Multivitamins 10 ml/Chromium/ Copper/Manganese/ Zinc 1 ml/Amino Acids/Dextrose 1,346.8387 ml @ 56 mls/hr Q24H4M IV 02/28/25 22:00 03/01/25 21:59 02/28/25 21:46 56 MLS/HR Fat Emulsion Intravenous 100 ml/Sodium Chloride 20 meq/ Potassium Chloride 40 meq/ Potassium Phosphate 22 meq/ Calcium Gluconate 4.65 meq/ Magnesium Sulfate 4 meq/ Multivitamins 10 ml/Chromium/ Copper/Manganese/ Zinc 1 ml/Amino Acids/Dextrose 1,352 ml @ 57 mls/hr [id number] IV 03/01/25 22:00 03/02/25 21:59 Potassium Chloride 100 ml @ 50 mls/hr Q2H IV 03/01/25 14:00 03/01/25 17:59 03/01/25 14:50 50 MLS/HR Lorazepam 0.5 mg Q6HP PRN IV 03/01/25 14:30 UNV Laboratory Results Laboratory Tests 03/01/25 04:47 Chemistry Test 03/01/25 04:47 Albumin 3.9 g/dL (3.2-4.8) Calcium Level 8.7 mg/dL (8.7-10.4) Magnesium Level 1.9 mg/dL (1.6-2.6) Phosphorus Level 2.7 mg/dL (2.4-5.1) Total Protein 6.9 g/dL (5.7-8.2) LFT Test 03/01/25 04:47 Alanine Aminotransferase (ALT) 10 U/L (7-40) Alkaline Phosphatase 85 U/L (46-116) Aspartate Amino Transferase (AST) 14 U/L (13-40) Total Bilirubin 0.7 mg/dL (0.2-1.0) Urinalysis Test 02/25/25 10:00 Urine Color Light-yellow (Yellow) Urine Clarity Clear (Clear) Urine pH 7.0 (5.0-9.0) Urine Specific [place] > 1.050 (1.001-1.035) Urine Protein Negative (Negative) Urine Ketones 1+ (Negative) H Urine Blood Negative /uL (Negative) Urine Nitrite Negative (Negative) Urine Bilirubin Negative (Negative) Urine Urobilinogen Normal mg/dL (Negative) Urine Leukocyte Esterase Negative /uL (Negative) Urine RBC 1 /hpf (0 - 4) Urine Microscopic WBC < 1 /HPF (0-5) Urine Squamous Epithelial Cells Few /hpf (<5) Urine Bacteria None seen /hpf (None Seen) Urine Glucose Normal mg/dL (Normal) Microbiology Microbiology Date/Time Source Procedure Growth Status 02/25/25 12:31 Blood Blood Culture - Preliminary NO GROWTH AFTER 72 HOURS OF INCUBATION. Resulted 02/25/25 10:00 Voided Urine Urine Culture - Final Complete Labs and/or images reviewed: Labs reviewed by me, Image(s) reviewed by me Assessment/Plan Assessment/Plan Impression: -sepsis -perforated sigmoid diverticulitis -obesity -hyperkalemia Plan: Events: Repeat CT scan with abdomen and pelvis reveals abscess. Discussed this with the patient. IR consultation will be placed. -Pain management: Continue Dilaudid 1.5 mg IV q.3 hours as needed -continue TPN and normal saline at 100 mL/hour -surgical consultation with recommendations reviewed -PUD, DVT prophylaxis -daily labs Total time spent with patient discussing and formulating plan of care: 35 minutes. This medical document was created using an electronic medical record system with [employer] dictation system. Although this document has been carefully reviewed, there may still be some phonetic and typographical errors. These areas are purely typographical due to imperfections of the software programs, and do not reflect any compromise in the patient's medical care. Plan discussed with: Patient, Other (RN) My Orders Orders - KALYAN RIGGS NP Procedure Category Date Status Time Ct Ab Pel With Iv Con CT 03/01/25 Resulted Only 08:29 Amino Acid PHA 03/01/25 In Process Infusion... W/Fat 22:00 Comprehensive LAB 03/02/25 Verified Metabolic Panel 04:00 Magnesium LAB 03/02/25 Verified 04:00 Phosphorus LAB 03/02/25 Verified 04:00 Tpn Per Pharmacy [facility] 03/01/25 In Process 22:00 Potassium Chl PHA 03/01/25 In Process 20meq/100ml 14:00 Electrocardigram EKG 03/01/25 Logged 14:24 * Radiologist Consult CONS 03/01/25 Transmitted 14:28 Lorazepam 2mg/Ml Inj PHA 03/01/25 Logged (Ativan Inj) 14:30 Date of Service: Mar 01, 2025 Billing Provider: KALYAN RIGGS NP Common Visit Codes: [id number] INP/OBS CARE(HIGH) KALYAN RIGGS NP Mar 01, 2025 15:01
--- NOTE | 2025-03-01 16:09 | ECG ---
[facility] Test Date: 2025-03-01 Test Time: 14:18:33 Pat Name: SHAAN BETANCOURT Department: Room: 0279 B Gender: F Marketing Program Coordinator: co : 1990 Requested By: KALYAN RIGGS Order Number: [id number] Reading MD: Ovidio Godoy Measurements Intervals [place] Rate: 89 P: 27 MD: 143 QRS: 4 QRSD: 91 T: 32 QT: 369 QTc: 449 Interpretive Statements Sinus rhythm Borderline T wave abnormalities Electronically Signed On 03-07-2025 21:35:03 PDT by Ovidio Godoy Please click the below link to view image of tracing.
[2025-03-01] MEDS: LORazepam 2MG/ML-1ML VIAL IV PRN (17:42)
--- NOTE | 2025-03-01 19:43 | DVH ---
CHEST RADIOGRAPH Indication: SOB Technique: Single frontal view of the chest was obtained COMPARISON: None FINDINGS: Cardiac silhouette is mildly enlarged. Mild prominence of the pulmonary vasculature. Bones and soft tissues demonstrate no significant abnormality. IMPRESSION: 1. Mild pulmonary venous congestion.
[2025-03-01] MEDS: TPN PER PHARMACY IV NR (21:45)
[2025-03-02] VITALS (7 sets, daily range): BP systolic 106–156; BP diastolic 70–99; PULSE 78–89; RESP 16–18; TEMP 97.8–98.7; O2SAT 95–99
[2025-03-02 07:27] LABS: Alanine Aminotransferase 10 U/L (7-40); Alkaline Phosphatase 92 U/L (46-116); Anion Gap 12 (5-15); BUN/Creatinine Ratio 10.6 (10.0-20.0); Calcium 8.8 mg/dL (8.7-10.4); Carbon Dioxide 26 mmol/L (20-31); Glucose 97 mg/dL (74-106); Magnesium 1.9 mg/dL (1.6-2.6); Total Protein 7.4 g/dL (5.7-8.2)
[2025-03-02 07:28] LABS: Albumin 4.1 g/dL (3.2-4.8)
[2025-03-02 07:29] LABS: Bilirubin, Total 0.6 mg/dL (0.2-1.0)
[2025-03-02 07:31] LABS: Blood Urea Nitrogen 7 mg/dL (9-23); Chloride 100 mmol/L (98-107); Potassium 3.4 mmol/L (3.5-5.1); Sodium 138 mmol/L (136-145)
[2025-03-02 10:02] LABS: Hematocrit 32.1 % (36.0-46.0); Hemoglobin 10.8 g/dL (12.2-16.2); Mean Corpuscular Hemoglobin 27.3 pg (28.0-32.0); Mean Corpuscular Volume 81.0 fL (80.0-100.0); Nucleated Red Blood Cells % 0.0 %
--- NOTE | 2025-03-02 11:15 | DVHPN2 ---
Subjective Patient reports some improvement with new pain regimen Reviewed: Care Plan, H&P, Labs, Medications Changes from previous H/P or p: No Changes General: Per HPI Gastrointestinal: Nausea, Vomiting, Abdominal Pain Objective Vitals Vital Signs Date Time Temp Pulse Resp B/P (MAP) Pulse Ox O2 Delivery O2 Flow Rate FiO2 03/02/25 10:06 80 18 117/79 03/02/25 08:33 98.1 96 98.1 03/01/25 20:00 Room Air* 0 21 Intake/Output Intake and Output 03/02/25 07:00 Intake Total 100 ml Balance 100 ml Intake Oral 0 ml IV Total 100 ml # Voids 2 General Appearance: Alert, Oriented X3, Cooperative, mild distress HEENT: Atraumatic, PERRLA Lungs: Clear to auscultation, Normal air movement Cardiovascular: Normal S1, Normal S2 Abdomen: Normal bowel sounds, Soft, No hepatospenomegaly, Other (10/10 abdominal pain to left lower quadrant) Back: Flank Tenderness, Midline Tenderness Neuro: Normal gait, Normal speech Skin: Dry, Intact Psych/Mental Status: Mental status NL, Mood NL Medications Current Medications Medications Dose Ordered Sig/Altaf Route Start Time Stop Time Status Last Admin Dose Admin Piperacillin Sod/ Tazobactam Sod 100 ml @ 25 mls/hr Q6HR IV 02/25/25 18:00 03/02/25 06:16 25 MLS/HR Ondansetron HCl 4 mg Q4HP PRN IV 02/25/25 11:15 Amino Acids 0 ml @ 0 mls/hr PER PHARMACY IV 02/26/25 15:00 Pantoprazole Sodium 40 mg DAILY IV 02/27/25 10:00 03/02/25 09:22 40 MG Enoxaparin Sodium 40 mg DAILY SC 02/27/25 10:00 03/01/25 09:49 40 MG Hydromorphone HCl 1.5 mg Q3HPRN PRN IV 02/26/25 15:30 03/02/25 09:36 1.5 MG Diagnostic Test (Pha) 1 strip Q6HR 02/26/25 18:00 03/02/25 06:13 1 STRIP Insulin Human Regular FOLLOW SLIDING SCALE Q6HR SC 02/26/25 18:00 03/01/25 17:31 2 UNITS Dextrose 50 ml UD IV 02/26/25 16:30 Sodium Chloride 10 ml QSHIFT@10,22 IV 02/26/25 22:00 03/02/25 09:19 10 ML Docusate Sodium 100 mg BID PO 02/27/25 22:00 03/01/25 21:40 100 MG Fat Emulsion Intravenous 100 ml/Sodium Chloride 20 meq/ Potassium Chloride 40 meq/ Potassium Phosphate 22 meq/ Calcium Gluconate 4.65 meq/ Magnesium Sulfate 4 meq/ Multivitamins 10 ml/Chromium/ Copper/Manganese/ Zinc 1 ml/Amino Acids/Dextrose 1,352 ml @ 57 mls/hr [id number] IV 03/01/25 22:00 03/02/25 21:59 03/01/25 21:45 57 MLS/HR Lorazepam 0.5 mg Q6HP PRN IV 03/01/25 14:30 03/02/25 06:17 0.5 MG Fat Emulsion Intravenous 100 ml/Sodium Chloride 30 meq/ Potassium Chloride 50 meq/ Potassium Phosphate 11 meq/ Calcium Gluconate 4.65 meq/ Magnesium Sulfate 4 meq/ Multivitamins 10 ml/Chromium/ Copper/Manganese/ Zinc 1 ml/Amino Acids/Dextrose 1,407 ml @ 59 mls/hr [id number] IV 03/02/25 22:00 03/03/25 21:59 Potassium Chloride 100 ml @ 50 mls/hr Q2H IV 03/02/25 09:15 03/02/25 13:14 Sodium Chloride 1,000 ml @ 50 mls/hr Q20H IV 03/02/25 11:00 UNV Laboratory Results Laboratory Tests 03/02/25 05:56 Chemistry Test 03/02/25 05:56 Albumin 4.1 g/dL (3.2-4.8) Calcium Level 8.8 mg/dL (8.7-10.4) Magnesium Level 1.9 mg/dL (1.6-2.6) Phosphorus Level 3.3 mg/dL (2.4-5.1) Total Protein 7.4 g/dL (5.7-8.2) LFT Test 03/02/25 05:56 Alanine Aminotransferase (ALT) 10 U/L (7-40) Alkaline Phosphatase 92 U/L (46-116) Aspartate Amino Transferase (AST) 17 U/L (13-40) Total Bilirubin 0.6 mg/dL (0.2-1.0) Urinalysis Test 02/25/25 10:00 Urine Color Light-yellow (Yellow) Urine Clarity Clear (Clear) Urine pH 7.0 (5.0-9.0) Urine Specific [place] > 1.050 (1.001-1.035) Urine Protein Negative (Negative) Urine Ketones 1+ (Negative) H Urine Blood Negative /uL (Negative) Urine Nitrite Negative (Negative) Urine Bilirubin Negative (Negative) Urine Urobilinogen Normal mg/dL (Negative) Urine Leukocyte Esterase Negative /uL (Negative) Urine RBC 1 /hpf (0 - 4) Urine Microscopic WBC < 1 /HPF (0-5) Urine Squamous Epithelial Cells Few /hpf (<5) Urine Bacteria None seen /hpf (None Seen) Urine Glucose Normal mg/dL (Normal) Microbiology Microbiology Date/Time Source Procedure Growth Status 02/25/25 12:31 Blood Blood Culture - Preliminary NO GROWTH AFTER 72 HOURS OF INCUBATION. Resulted 02/25/25 10:00 Voided Urine Urine Culture - Final Complete Labs and/or images reviewed: Labs reviewed by me, Image(s) reviewed by me Assessment/Plan Assessment/Plan Impression: -sepsis -perforated sigmoid diverticulitis -obesity -hyperkalemia Plan: Events: Plan of care discussed with interventional radiologist, Dr. Zuluaga as well as myself bedside with the patient. All questions answered. We will repeat CT scan and reassess abscess in 3-4 days. -Pain management: Continue Dilaudid 1.5 mg IV q.3 hours as needed -continue TPN, decrease normal saline to 50 mL/hour -surgical consultation with recommendations reviewed -PUD, DVT prophylaxis -daily labs Total time spent with patient discussing and formulating plan of care: 35 minutes. This medical document was created using an electronic medical record system with [employer] dictation system. Although this document has been carefully reviewed, there may still be some phonetic and typographical errors. These areas are purely typographical due to imperfections of the software programs, and do not reflect any compromise in the patient's medical care. Plan discussed with: Patient, Other (RN) My Orders Orders - KALYAN RIGGS NP Procedure Category Date Status Time * Radiologist Consult CONS 03/01/25 Transmitted 14:28 Lorazepam 2mg/Ml Inj PHA 03/01/25 In Process (Ativan Inj) 14:30 Chest Xray 1 View XY 03/01/25 Resulted 15:46 Amino Acid PHA 03/02/25 In Process Infusion... W/Fat 22:00 Potassium Chl PHA 03/02/25 In Process 20meq/100ml 09:15 Comprehensive LAB 03/03/25 Verified Metabolic Panel 04:00 Phosphorus LAB 03/03/25 Verified 04:00 Magnesium LAB 03/03/25 Verified 04:00 Tpn Per Pharmacy [facility] 03/02/25 In Process 22:00 Sodium Chloride 0.9% PHA 03/02/25 Logged 11:00 Complete Blood Count LAB 03/03/25 Verified 05:00 Complete Blood Count LAB 03/04/25 Verified 05:00 Complete Blood Count LAB 03/05/25 Verified 05:00 Date of Service: Mar 02, 2025 Billing Provider: KALYAN RIGGS NP Common Visit Codes: [id number] INP/OBS CARE(HIGH) KALYNA RIGGS NP Mar 02, 2025 11:15
[2025-03-02] MEDS: SODIUM CHLORIDE 0.9% 1,000 ML IV SCH (11:37)
[2025-03-02] MEDS: POTASSIUM CHL 20MEQ/100ML 100 ML IV SCH (11:37)
--- NOTE | 2025-03-02 14:27 | DVHPN2 ---
Progress Note - Surgical Date Seen: Mar 02, 2025 Post op day Post op day: 0 Subjective Patient reports: No new complaints (Patient is still having suprapubic abdominal pain, no nausea, no vomiting) Review of Systems: Deferred Objective Vital signs Vital Sign Date Time Temp Pulse Resp B/P (MAP) Pulse Ox O2 Delivery O2 Flow Rate FiO2 03/02/25 12:47 98.2 87 16 129/77 (94) 99 98.2 03/01/25 20:00 Room Air* 0 21 Total Intake and Output 03/01/25 03/01/25 03/02/25 15:00 23:00 07:00 Intake Total 100 ml 0 ml Balance 100 ml 0 ml Medications Current Medications Medications Dose Ordered Sig/Altaf Route Start Time Stop Time Status Last Admin Dose Admin Piperacillin Sod/ Tazobactam Sod 100 ml @ 25 mls/hr Q6HR IV 02/25/25 18:00 03/02/25 06:16 25 MLS/HR Ondansetron HCl 4 mg Q4HP PRN IV 02/25/25 11:15 Amino Acids 0 ml @ 0 mls/hr PER PHARMACY IV 02/26/25 15:00 Pantoprazole Sodium 40 mg DAILY IV 02/27/25 10:00 03/02/25 09:22 40 MG Enoxaparin Sodium 40 mg DAILY SC 02/27/25 10:00 03/01/25 09:49 40 MG Hydromorphone HCl 1.5 mg Q3HPRN PRN IV 02/26/25 15:30 03/02/25 09:36 1.5 MG Diagnostic Test (Pha) 1 strip Q6HR 02/26/25 18:00 03/02/25 11:23 1 STRIP Insulin Human Regular FOLLOW SLIDING SCALE Q6HR SC 02/26/25 18:00 03/01/25 17:31 2 UNITS Dextrose 50 ml UD IV 02/26/25 16:30 Sodium Chloride 10 ml QSHIFT@10,22 IV 02/26/25 22:00 03/02/25 09:19 10 ML Docusate Sodium 100 mg BID PO 02/27/25 22:00 03/01/25 21:40 100 MG Fat Emulsion Intravenous 100 ml/Sodium Chloride 20 meq/ Potassium Chloride 40 meq/ Potassium Phosphate 22 meq/ Calcium Gluconate 4.65 meq/ Magnesium Sulfate 4 meq/ Multivitamins 10 ml/Chromium/ Copper/Manganese/ Zinc 1 ml/Amino Acids/Dextrose 1,352 ml @ 57 mls/hr [id number] IV 03/01/25 22:00 03/02/25 21:59 03/01/25 21:45 57 MLS/HR Lorazepam 0.5 mg Q6HP PRN IV 03/01/25 14:30 03/02/25 12:51 0.5 MG Fat Emulsion Intravenous 100 ml/Sodium Chloride 30 meq/ Potassium Chloride 50 meq/ Potassium Phosphate 11 meq/ Calcium Gluconate 4.65 meq/ Magnesium Sulfate 4 meq/ Multivitamins 10 ml/Chromium/ Copper/Manganese/ Zinc 1 ml/Amino Acids/Dextrose 1,407 ml @ 59 mls/hr [id number] IV 03/02/25 22:00 03/03/25 21:59 Sodium Chloride 1,000 ml @ 50 mls/hr Q20H IV 03/02/25 11:00 03/02/25 11:37 50 MLS/HR Laboratory Laboratory Tests 03/02/25 05:56 Test 03/02/25 05:56 Range/Units Serum Glucose 97 74-106 mg/dL Microbiology Date/Time Source Procedure Growth Status 02/25/25 12:31 Blood Blood Culture - Final NO GROWTH AFTER 5 DAYS OF INCUBATION. Complete 02/25/25 10:00 Voided Urine Urine Culture - Final Complete Examination: GENERAL:Normal, ABDOMEN:Abnormal (Slight distention, soft, depressible, suprapubic tenderness, no rebound, no guarding) Labs and/or images reviewed: Labs reviewed by me (No leukocytosis WBC at 9.5), Image(s) reviewed by me (CT scan from yesterday shows an enlarging abscess from initial CT now approximately 10 x 4 cm) Problem List/Assessment/Plan Assessment and Plan is a 34-year-old female who presented with Hinchey [address]. [address] there is micro perforation of the sigmoid colon with pericolic stranding and a pelvic abscess measuring 2.8 x 3.3 cm. Interval: Repeat CT from yesterday shows an enlarging pelvic abscess that measures approximately 10 x 4 cm. Patient would definitely benefit from drain placement to evacuate the abscess. Recommend IR consultation for drain placement. Patient is not septic or peritonitic from her disease process and want to try the remediate her situation with drain instead of emergency surgery which would consist of laparotomy, bowel resection, ostomy. 1. IR consultation for drain placement due to large pelvic abscess 2. NPO, ice chips okay for comfort 3. Colace 100 mg p.o. b.i.d. (stool softener) ; no laxatives 4. IV antibiotics: Zosyn 5. Pain and nausea control 6. Out of bed and ambulate 7. We will continue to monitor My Orders My Orders Orders - PREMA POZO MD Procedure Category Date Status Time Complete Blood Count LAB 03/03/25 Verified 04:00 Plan discussed with Plan discussed with: Patient Visit Coding Surgery Date of Service if different f: Mar 02, 2025 Billing Provider: PREMA POZO MD Surgery Visit Codes: [id number] INP/OBS CARE(HIGH) PREMA POZO MD Mar 02, 2025 14:27
[2025-03-02] MEDS: TPN PER PHARMACY IV NR (21:40)
[2025-03-03] VITALS (7 sets, daily range): BP systolic 111–134; BP diastolic 67–87; PULSE 65–92; RESP 16–18; TEMP 97–98.6; O2SAT 94–100
[2025-03-03 07:13] LABS: Hematocrit 34.6 % (36.0-46.0); Hemoglobin 11.6 g/dL (12.2-16.2); Mean Corpuscular Hemoglobin 26.9 pg (28.0-32.0); Mean Corpuscular Volume 80.3 fL (80.0-100.0); Nucleated Red Blood Cells % 0.0 %
[2025-03-03 07:28] LABS: Alanine Aminotransferase 19 U/L (7-40); Albumin 4.1 g/dL (3.2-4.8); Alkaline Phosphatase 98 U/L (46-116); Anion Gap 9 (5-15); BUN/Creatinine Ratio 9.7 (10.0-20.0); Calcium 9.2 mg/dL (8.7-10.4); Carbon Dioxide 27 mmol/L (20-31); Chloride 102 mmol/L (98-107); Magnesium 2.0 mg/dL (1.6-2.6); Potassium 3.8 mmol/L (3.5-5.1); Sodium 138 mmol/L (136-145); Total Protein 7.7 g/dL (5.7-8.2)
[2025-03-03 07:29] LABS: Bilirubin, Total 0.6 mg/dL (0.2-1.0); Blood Urea Nitrogen 7 mg/dL (9-23); Glucose 119 mg/dL (74-106)
--- NOTE | 2025-03-03 12:23 | DVHPN2 ---
Progress Note - Surgical Date Seen: Mar 03, 2025 Post op day Post op day: 0 Subjective Patient reports: No new complaints (Still complaining of suprapubic abdominal pain, no nausea, no vomiting, vital signs were completely stable, having bowel movements.) Review of Systems: Not Done Objective Vital signs Vital Sign Date Time Temp Pulse Resp B/P (MAP) Pulse Ox O2 Delivery O2 Flow Rate FiO2 03/03/25 10:00 89 16 126/82 03/03/25 08:21 98.1 98 98.1 03/03/25 08:00 Room Air* 0 21 Total Intake and Output 03/02/25 03/02/25 03/03/25 15:00 23:00 07:00 Intake Total 75 ml 100 ml Balance 75 ml 100 ml Medications Current Medications Medications Dose Ordered Sig/Altaf Route Start Time Stop Time Status Last Admin Dose Admin Piperacillin Sod/ Tazobactam Sod 100 ml @ 25 mls/hr Q6HR IV 02/25/25 18:00 03/03/25 11:47 25 MLS/HR Ondansetron HCl 4 mg Q4HP PRN IV 02/25/25 11:15 Amino Acids 0 ml @ 0 mls/hr PER PHARMACY IV 02/26/25 15:00 Pantoprazole Sodium 40 mg DAILY IV 02/27/25 10:00 03/03/25 09:28 40 MG Enoxaparin Sodium 40 mg DAILY SC 02/27/25 10:00 03/03/25 09:29 40 MG Hydromorphone HCl 1.5 mg Q3HPRN PRN IV 02/26/25 15:30 03/03/25 09:30 1.5 MG Diagnostic Test (Pha) 1 strip Q6HR 02/26/25 18:00 03/03/25 11:47 1 STRIP Insulin Human Regular FOLLOW SLIDING SCALE Q6HR SC 02/26/25 18:00 03/01/25 17:31 2 UNITS Dextrose 50 ml UD IV 02/26/25 16:30 Sodium Chloride 10 ml QSHIFT@10,22 IV 02/26/25 22:00 03/03/25 09:29 10 ML Docusate Sodium 100 mg BID PO 02/27/25 22:00 03/03/25 09:29 100 MG Lorazepam 0.5 mg Q6HP PRN IV 03/01/25 14:30 03/03/25 11:47 0.5 MG Fat Emulsion Intravenous 100 ml/Sodium Chloride 30 meq/ Potassium Chloride 50 meq/ Potassium Phosphate 11 meq/ Calcium Gluconate 4.65 meq/ Magnesium Sulfate 4 meq/ Multivitamins 10 ml/Chromium/ Copper/Manganese/ Zinc 1 ml/Amino Acids/Dextrose 1,407 ml @ 59 mls/hr [id number] IV 03/02/25 22:00 03/03/25 21:59 03/02/25 21:40 59 MLS/HR Sodium Chloride 1,000 ml @ 50 mls/hr Q20H IV 03/02/25 11:00 03/02/25 11:37 50 MLS/HR Fat Emulsion Intravenous 150 ml/Sodium Chloride 30 meq/ Potassium Chloride 50 meq/ Potassium Phosphate 15 meq/ Calcium Gluconate 2.3 meq/Magnesium Sulfate 4 meq/ Multivitamins 10 ml/Chromium/ Copper/Manganese/ Zinc 1 ml/Amino Acids/Dextrose 1,452.8553 ml @ 60 mls/hr [id number] IV 03/03/25 22:00 03/04/25 21:59 Laboratory Laboratory Tests 03/03/25 06:43 Test 03/03/25 06:43 Range/Units Serum Glucose 119 H 74-106 mg/dL Microbiology Date/Time Source Procedure Growth Status 02/25/25 12:31 Blood Blood Culture - Final NO GROWTH AFTER 5 DAYS OF INCUBATION. Complete 02/25/25 10:00 Voided Urine Urine Culture - Final Complete Examination: GENERAL:Normal, ABDOMEN:Abnormal (Nondistended, soft, depressible, suprapubic tenderness, no rebound, no guarding) Labs and/or images reviewed: Labs reviewed by me (No leukocytosis, WBC count 8.5.) Problem List/Assessment/Plan Assessment and Plan is a 34-year-old female who presented with H[place]hey [address]. [address] there is micro perforation of the sigmoid colon with pericolic stranding and a pelvic abscess measuring 2.[address] ABD/P from 03/01:enlarging pelvic abscess that measures approximately 10 x 4 cm Interval: Patient conditions continues to improve, no vitals abnormalities, no white count, but she is still exquisite tenderness in the suprapubic area. Tenderness does not surprise me as she has a large pelvic abscess, for which I am still recommending drain placement and continued IV antibiotics. Since patient's condition is not worsening I will not rupture to the operating room to perform a sigmoidectomy with end colostomy. 1. IR consultation for drain placement due to large pelvic abscess 2. NPO, ice chips okay for comfort 3. Colace 100 mg p.o. b.i.d. (stool softener) ; no laxatives 4. IV antibiotics: Zosyn 5. Pain and nausea control 6. Out of bed and ambulate 7. We will continue to monitor Plan discussed with Plan discussed with: Patient Visit Coding Surgery Date of Service if different f: Mar 03, 2025 Billing Provider: PREMA POZO MD Surgery Visit Codes: [id number] INP/OBS CARE(HIGH) PREMA POZO MD Mar 03, 2025 12:22
--- NOTE | 2025-03-03 16:02 | DVHPN2 ---
Subjective Patient reports some improvement with new pain regimen Reviewed: Care Plan, H&P, Labs, Medications Changes from previous H/P or p: No Changes General: Per HPI Gastrointestinal: Nausea, Vomiting, Abdominal Pain Objective Vitals Vital Signs Date Time Temp Pulse Resp B/P (MAP) Pulse Ox O2 Delivery O2 Flow Rate FiO2 03/03/25 14:21 83 18 116/83 03/03/25 12:47 97.9 97 97.9 03/03/25 08:00 Room Air* 0 21 Intake/Output Intake and Output 03/03/25 07:00 Intake Total 175 ml Balance 175 ml Intake Oral 0 ml IV Total 175 ml # Voids 2 # Bowel Movements 1 General Appearance: Alert, Oriented X3, Cooperative, mild distress HEENT: Atraumatic, PERRLA Lungs: Clear to auscultation, Normal air movement Cardiovascular: Normal S1, Normal S2 Abdomen: Normal bowel sounds, Soft, No hepatospenomegaly, Other (10/10 abdominal pain to left lower quadrant) Back: Flank Tenderness, Midline Tenderness Neuro: Normal gait, Normal speech Skin: Dry, Intact Psych/Mental Status: Mental status NL, Mood NL Medications Current Medications Medications Dose Ordered Sig/Altaf Route Start Time Stop Time Status Last Admin Dose Admin Piperacillin Sod/ Tazobactam Sod 100 ml @ 25 mls/hr Q6HR IV 02/25/25 18:00 03/03/25 11:47 25 MLS/HR Ondansetron HCl 4 mg Q4HP PRN IV 02/25/25 11:15 Amino Acids 0 ml @ 0 mls/hr PER PHARMACY IV 02/26/25 15:00 Pantoprazole Sodium 40 mg DAILY IV 02/27/25 10:00 03/03/25 09:28 40 MG Enoxaparin Sodium 40 mg DAILY SC 02/27/25 10:00 03/03/25 09:29 40 MG Hydromorphone HCl 1.5 mg Q3HPRN PRN IV 02/26/25 15:30 03/03/25 14:21 1.5 MG Diagnostic Test (Pha) 1 strip Q6HR 02/26/25 18:00 03/03/25 11:47 1 STRIP Insulin Human Regular FOLLOW SLIDING SCALE Q6HR SC 02/26/25 18:00 03/01/25 17:31 2 UNITS Dextrose 50 ml UD IV 02/26/25 16:30 Sodium Chloride 10 ml QSHIFT@10,22 IV 02/26/25 22:00 03/03/25 09:29 10 ML Docusate Sodium 100 mg BID PO 02/27/25 22:00 03/03/25 09:29 100 MG Lorazepam 0.5 mg Q6HP PRN IV 03/01/25 14:30 03/03/25 11:47 0.5 MG Fat Emulsion Intravenous 100 ml/Sodium Chloride 30 meq/ Potassium Chloride 50 meq/ Potassium Phosphate 11 meq/ Calcium Gluconate 4.65 meq/ Magnesium Sulfate 4 meq/ Multivitamins 10 ml/Chromium/ Copper/Manganese/ Zinc 1 ml/Amino Acids/Dextrose 1,407 ml @ 59 mls/hr [id number] IV 03/02/25 22:00 03/03/25 21:59 03/02/25 21:40 59 MLS/HR Sodium Chloride 1,000 ml @ 50 mls/hr Q20H IV 03/02/25 11:00 03/02/25 11:37 50 MLS/HR Fat Emulsion Intravenous 150 ml/Sodium Chloride 30 meq/ Potassium Chloride 50 meq/ Potassium Phosphate 15 meq/ Calcium Gluconate 2.3 meq/Magnesium Sulfate 4 meq/ Multivitamins 10 ml/Chromium/ Copper/Manganese/ Zinc 1 ml/Amino Acids/Dextrose 1,452.8553 ml @ 60 mls/hr [id number] IV 03/03/25 22:00 03/04/25 21:59 Laboratory Results Laboratory Tests 03/03/25 06:43 Chemistry Test 03/03/25 06:43 Albumin 4.1 g/dL (3.2-4.8) Calcium Level 9.2 mg/dL (8.7-10.4) Magnesium Level 2.0 mg/dL (1.6-2.6) Phosphorus Level 2.8 mg/dL (2.4-5.1) Total Protein 7.7 g/dL (5.7-8.2) LFT Test 03/03/25 06:43 Alanine Aminotransferase (ALT) 19 U/L (7-40) Alkaline Phosphatase 98 U/L (46-116) Aspartate Amino Transferase (AST) 21 U/L (13-40) Total Bilirubin 0.6 mg/dL (0.2-1.0) Urinalysis Test 02/25/25 10:00 Urine Color Light-yellow (Yellow) Urine Clarity Clear (Clear) Urine pH 7.0 (5.0-9.0) Urine Specific [place] > 1.050 (1.001-1.035) Urine Protein Negative (Negative) Urine Ketones 1+ (Negative) H Urine Blood Negative /uL (Negative) Urine Nitrite Negative (Negative) Urine Bilirubin Negative (Negative) Urine Urobilinogen Normal mg/dL (Negative) Urine Leukocyte Esterase Negative /uL (Negative) Urine RBC 1 /hpf (0 - 4) Urine Microscopic WBC < 1 /HPF (0-5) Urine Squamous Epithelial Cells Few /hpf (<5) Urine Bacteria None seen /hpf (None Seen) Urine Glucose Normal mg/dL (Normal) Microbiology Microbiology Date/Time Source Procedure Growth Status 02/25/25 12:31 Blood Blood Culture - Final NO GROWTH AFTER 5 DAYS OF INCUBATION. Complete 02/25/25 10:00 Voided Urine Urine Culture - Final Complete Labs and/or images reviewed: Labs reviewed by me, Image(s) reviewed by me Assessment/Plan Assessment/Plan Impression: -sepsis -perforated sigmoid diverticulitis -obesity -hyperkalemia Plan: Events: Events overnight. -Pain management: Continue Dilaudid 1.5 mg IV q.3 hours as needed -continue TPN, decrease normal saline to 50 mL/hour -surgical consultation with recommendations reviewed -PUD, DVT prophylaxis -daily labs Total time spent with patient discussing and formulating plan of care: 35 minutes. This medical document was created using an electronic medical record system with [employer] dictation system. Although this document has been carefully reviewed, there may still be some phonetic and typographical errors. These areas are purely typographical due to imperfections of the software programs, and do not reflect any compromise in the patient's medical care. Plan discussed with: Patient, Other (RN) My Orders Orders - KALYAN RIGGS NP Procedure Category Date Status Time Amino Acid PHA 03/03/25 In Process Infusion... W/Fat 22:00 Tpn Per Pharmacy [facility] 03/03/25 In Process 22:00 Comprehensive LAB 03/04/25 Verified Metabolic Panel 04:00 Magnesium LAB 03/04/25 Verified 04:00 Phosphorus LAB 03/04/25 Verified 04:00 Date of Service: Mar 03, 2025 Billing Provider: KALYAN RIGGS NP Common Visit Codes: [id number] INP/OBS CARE(HIGH) KALYAN RIGGS NP Mar 03, 2025 16:02
[2025-03-03] MEDS: TPN PER PHARMACY IV NR (21:28)
[2025-03-04] VITALS (7 sets, daily range): BP systolic 111–129; BP diastolic 59–84; PULSE 66–85; RESP 14–18; TEMP 97.1–97.6; O2SAT 90–96
[2025-03-04 07:19] LABS: Hematocrit 35.5 % (36.0-46.0); Hemoglobin 12.2 g/dL (12.2-16.2); Mean Corpuscular Hemoglobin 27.5 pg (28.0-32.0); Mean Corpuscular Volume 80.3 fL (80.0-100.0); Nucleated Red Blood Cells % 0.0 %
[2025-03-04 07:35] LABS: Alanine Aminotransferase 22 U/L (7-40); Albumin 4.5 g/dL (3.2-4.8); Alkaline Phosphatase 110 U/L (46-116); Anion Gap 11 (5-15); BUN/Creatinine Ratio 11.4 (10.0-20.0); Calcium 9.1 mg/dL (8.7-10.4); Carbon Dioxide 25 mmol/L (20-31); Chloride 100 mmol/L (98-107); Glucose 100 mg/dL (74-106); Magnesium 2.1 mg/dL (1.6-2.6); Potassium 3.7 mmol/L (3.5-5.1); Sodium 136 mmol/L (136-145)
[2025-03-04 07:36] LABS: Bilirubin, Total 0.5 mg/dL (0.2-1.0)
[2025-03-04 07:42] LABS: Blood Urea Nitrogen 8 mg/dL (9-23); Total Protein 8.3 g/dL (5.7-8.2)
--- NOTE | 2025-03-04 10:24 | DVHPN2 ---
Progress Note - Surgical Date Seen: Mar 04, 2025 Post op day Post op day: 0 Subjective Patient reports: Feels better (Patient feels slightly better today, still has the suprapubic pain but is better controlled, no nausea, no vomiting, feeling hungry. Also had 1 bowel movement, nonbloody, vital signs stable.) Review of Systems: Deferred Objective Vital signs Vital Sign Date Time Temp Pulse Resp B/P (MAP) Pulse Ox O2 Delivery O2 Flow Rate FiO2 03/04/25 09:17 78 16 129/73 03/04/25 08:57 97.4 96 97.4 03/04/25 08:00 Room Air* 0 21 Total Intake and Output 03/03/25 03/03/25 03/04/25 14:59 22:59 06:59 Intake Total 100 ml 1652 ml 150 ml Balance 100 ml 1652 ml 150 ml Medications Current Medications Medications Dose Ordered Sig/Altaf Route Start Time Stop Time Status Last Admin Dose Admin Piperacillin Sod/ Tazobactam Sod 100 ml @ 25 mls/hr Q6HR IV 02/25/25 18:00 03/04/25 05:41 25 MLS/HR Ondansetron HCl 4 mg Q4HP PRN IV 02/25/25 11:15 Amino Acids 0 ml @ 0 mls/hr PER PHARMACY IV 02/26/25 15:00 Pantoprazole Sodium 40 mg DAILY IV 02/27/25 10:00 03/04/25 08:43 40 MG Enoxaparin Sodium 40 mg DAILY SC 02/27/25 10:00 03/04/25 08:43 40 MG Hydromorphone HCl 1.5 mg Q3HPRN PRN IV 02/26/25 15:30 03/04/25 08:47 1.5 MG Diagnostic Test (Pha) 1 strip Q6HR 02/26/25 18:00 03/04/25 05:51 1 STRIP Insulin Human Regular FOLLOW SLIDING SCALE Q6HR SC 02/26/25 18:00 03/01/25 17:31 2 UNITS Dextrose 50 ml UD IV 02/26/25 16:30 Sodium Chloride 10 ml QSHIFT@10,22 IV 02/26/25 22:00 03/04/25 08:43 10 ML Docusate Sodium 100 mg BID PO 02/27/25 22:00 03/04/25 08:43 100 MG Lorazepam 0.5 mg Q6HP PRN IV 03/01/25 14:30 03/03/25 11:47 0.5 MG Sodium Chloride 1,000 ml @ 50 mls/hr Q20H IV 03/02/25 11:00 03/04/25 03:00 50 MLS/HR Fat Emulsion Intravenous 150 ml/Sodium Chloride 30 meq/ Potassium Chloride 50 meq/ Potassium Phosphate 15 meq/ Calcium Gluconate 2.3 meq/Magnesium Sulfate 4 meq/ Multivitamins 10 ml/Chromium/ Copper/Manganese/ Zinc 1 ml/Amino Acids/Dextrose 1,452.8553 ml @ 60 mls/hr [id number] IV 03/03/25 22:00 03/04/25 21:59 03/03/25 21:28 60 MLS/HR Fat Emulsion Intravenous 150 ml/Sodium Chloride 50 meq/ Potassium Chloride 60 meq/ Potassium Phosphate 8.8 meq/ Magnesium Sulfate 4 meq/ Multivitamins 10 ml/Chromium/ Copper/Manganese/ Zinc 1 ml/Amino Acids/Dextrose 1,456.5 ml @ 61 mls/hr [id number] IV 03/04/25 22:00 03/05/25 21:59 Laboratory Laboratory Tests 03/04/25 06:16 Test 03/04/25 06:16 Range/Units Serum Glucose 100 74-106 mg/dL Microbiology Date/Time Source Procedure Growth Status 02/25/25 12:31 Blood Blood Culture - Final NO GROWTH AFTER 5 DAYS OF INCUBATION. Complete 02/25/25 10:00 Voided Urine Urine Culture - Final Complete Examination: GENERAL:Normal, ABDOMEN:Abnormal (Nondistended, soft, depressible, suprapubic tenderness, no rebound, no guarding) Labs and/or images reviewed: Labs reviewed by me (No leukocytosis white count at 9.2, no other abnormalities noted) Problem List/Assessment/Plan Assessment and Plan is a 34-year-old female who presented with Hinchey [address]. [address] there is micro perforation of the sigmoid colon with pericolic stranding and a pelvic abscess measuring 2.[address] ABD/P from 03/01:enlarging pelvic abscess that measures approximately 10 x 4 cm Interval: Patient conditions continues to improve, no vitals abnormalities, no white count, but she is still exquisite tenderness in the suprapubic area. Tenderness does not surprise me as she has a large pelvic abscess, for which I am still recommending drain placement and continued IV antibiotics. Since patient's condition is not worsening I will not take to the operating room to perform a sigmoidectomy with end colostomy. Patient feeling hungry today, okay for clear liquid diet. 1. IR consultation for drain placement due to large pelvic abscess 2. Clear liquid diet 3. Colace 100 mg p.o. b.i.d. (stool softener) ; no laxatives 4. IV antibiotics: Zosyn 5. Pain and nausea control 6. Out of bed and ambulate 7. We will continue to monitor Plan discussed with Plan discussed with: Patient Visit Coding Surgery Date of Service if different f: Mar 04, 2025 Billing Provider: PREMA POZO MD Surgery Visit Codes: [id number] INP/OBS CARE(HIGH) PREMA POZO MD Mar 04, 2025 10:24
[2025-03-04] MEDS: ONDANSETRON HCL 4 MG/2 ML VIAL IV PRN (12:30)
--- NOTE | 2025-03-04 17:01 | DVHPN2 ---
Subjective BETTER Reviewed: Care Plan, H&P, Labs, Medications, Previous Orders, Radiology, Other (CONSULT) Changes from previous H/P or p: No Changes General: Per HPI Objective Vitals Vital Signs Date Time Temp Pulse Resp B/P (MAP) Pulse Ox O2 Delivery O2 Flow Rate FiO2 03/04/25 16:47 97.5 83 14 124/84 (97) 93 97.5 03/04/25 08:00 Room Air* 0 21 Intake/Output Intake and Output 03/04/25 07:00 Intake Total 1902 ml Balance 1902 ml Intake Oral 0 ml IV Total 1902 ml Tube Feeding 0 ml # Voids 6 # Bowel Movements 1 General Appearance: Alert, Oriented X3, Cooperative HEENT: Atraumatic Lungs: Clear to auscultation, Normal air movement Cardiovascular: Regular rate, Normal S1 Abdomen: Normal bowel sounds, Soft, Other (TENDERNESS TO MID LOWER ABD) Neuro: Normal speech Medications Current Medications Medications Dose Ordered Sig/Altaf Route Start Time Stop Time Status Last Admin Dose Admin Piperacillin Sod/ Tazobactam Sod 100 ml @ 25 mls/hr Q6HR IV 02/25/25 18:00 03/04/25 11:53 25 MLS/HR Ondansetron HCl 4 mg Q4HP PRN IV 02/25/25 11:15 03/04/25 12:30 4 MG Amino Acids 0 ml @ 0 mls/hr PER PHARMACY IV 02/26/25 15:00 Pantoprazole Sodium 40 mg DAILY IV 02/27/25 10:00 03/04/25 08:43 40 MG Enoxaparin Sodium 40 mg DAILY SC 02/27/25 10:00 03/04/25 08:43 40 MG Hydromorphone HCl 1.5 mg Q3HPRN PRN IV 02/26/25 15:30 03/04/25 15:35 1.5 MG Diagnostic Test (Pha) 1 strip Q6HR 02/26/25 18:00 03/04/25 11:52 1 STRIP Insulin Human Regular FOLLOW SLIDING SCALE Q6HR SC 02/26/25 18:00 03/04/25 11:53 2 UNITS Dextrose 50 ml UD IV 02/26/25 16:30 Sodium Chloride 10 ml QSHIFT@10,22 IV 02/26/25 22:00 03/04/25 08:43 10 ML Docusate Sodium 100 mg BID PO 02/27/25 22:00 03/04/25 08:43 100 MG Lorazepam 0.5 mg Q6HP PRN IV 03/01/25 14:30 03/03/25 11:47 0.5 MG Sodium Chloride 1,000 ml @ 50 mls/hr Q20H IV 03/02/25 11:00 03/04/25 03:00 50 MLS/HR Fat Emulsion Intravenous 150 ml/Sodium Chloride 30 meq/ Potassium Chloride 50 meq/ Potassium Phosphate 15 meq/ Calcium Gluconate 2.3 meq/Magnesium Sulfate 4 meq/ Multivitamins 10 ml/Chromium/ Copper/Manganese/ Zinc 1 ml/Amino Acids/Dextrose 1,452.8553 ml @ 60 mls/hr [id number] IV 03/03/25 22:00 03/04/25 21:59 03/03/25 21:28 60 MLS/HR Fat Emulsion Intravenous 150 ml/Sodium Chloride 50 meq/ Potassium Chloride 60 meq/ Potassium Phosphate 8.8 meq/ Magnesium Sulfate 4 meq/ Multivitamins 10 ml/Chromium/ Copper/Manganese/ Zinc 1 ml/Amino Acids/Dextrose 1,456.5 ml @ 61 mls/hr [id number] IV 03/04/25 22:00 03/05/25 21:59 Laboratory Results Laboratory Tests 03/04/25 06:16 Chemistry Test 03/04/25 06:16 Albumin 4.5 g/dL (3.2-4.8) Calcium Level 9.1 mg/dL (8.7-10.4) Magnesium Level 2.1 mg/dL (1.6-2.6) Phosphorus Level 3.2 mg/dL (2.4-5.1) Total Protein 8.3 g/dL (5.7-8.2) H LFT Test 03/04/25 06:16 Alanine Aminotransferase (ALT) 22 U/L (7-40) Alkaline Phosphatase 110 U/L (46-116) Aspartate Amino Transferase (AST) 26 U/L (13-40) Total Bilirubin 0.5 mg/dL (0.2-1.0) HgA1c, TSH Test 03/04/25 06:16 Hemoglobin A1c 5.3 % A1C (<5.7) Urinalysis Test 02/25/25 10:00 Urine Color Light-yellow (Yellow) Urine Clarity Clear (Clear) Urine pH 7.0 (5.0-9.0) Urine Specific [place] > 1.050 (1.001-1.035) Urine Protein Negative (Negative) Urine Ketones 1+ (Negative) H Urine Blood Negative /uL (Negative) Urine Nitrite Negative (Negative) Urine Bilirubin Negative (Negative) Urine Urobilinogen Normal mg/dL (Negative) Urine Leukocyte Esterase Negative /uL (Negative) Urine RBC 1 /hpf (0 - 4) Urine Microscopic WBC < 1 /HPF (0-5) Urine Squamous Epithelial Cells Few /hpf (<5) Urine Bacteria None seen /hpf (None Seen) Urine Glucose Normal mg/dL (Normal) Microbiology Microbiology Date/Time Source Procedure Growth Status 02/25/25 12:31 Blood Blood Culture - Final NO GROWTH AFTER 5 DAYS OF INCUBATION. Complete 02/25/25 10:00 Voided Urine Urine Culture - Final Complete Assessment/Plan Assessment/Plan Abdominal pain Diverticulitis with microperforations Diverticular abscess Morbid obesity with BMI 41.3 PCOS Plan: Repeat CT scan. Possible drainage tube by Radiology after the new CT scan Plan discussed with: Patient Date of Service: Mar 04, 2025 Billing Provider: MARLENI VELÁZQUEZ MD Common Visit Codes: [id number] INP/OBS CARE(HIGH) MARLENI VELÁZQUEZ MD Mar 04, 2025 17:01
[2025-03-04] MEDS: TPN PER PHARMACY IV NR (21:29)
[2025-03-05 05:00] VITALS: BP_SYST 125; BP_SYST 134; BP_DIAS 53; BP_DIAS 85; PULSE 65; PULSE 76; RESP 17; RESP 19; TEMP 97.5; TEMP 98; O2SAT 95; O2SAT 99
[2025-03-05 07:52] LABS: Alanine Aminotransferase 30 U/L (7-40); Albumin 4.2 g/dL (3.2-4.8); Alkaline Phosphatase 108 U/L (46-116); Anion Gap 9 (5-15); BUN/Creatinine Ratio 11.5 (10.0-20.0); Bilirubin, Total 0.4 mg/dL (0.2-1.0); Blood Urea Nitrogen 9 mg/dL (9-23); Calcium 9.0 mg/dL (8.7-10.4); Carbon Dioxide 26 mmol/L (20-31); Chloride 101 mmol/L (98-107); Magnesium 2.1 mg/dL (1.6-2.6); Potassium 3.9 mmol/L (3.5-5.1); Sodium 136 mmol/L (136-145); Total Protein 7.9 g/dL (5.7-8.2)
[2025-03-05 07:53] LABS: Hematocrit 34.0 % (36.0-46.0); Hemoglobin 11.7 g/dL (12.2-16.2); Mean Corpuscular Hemoglobin 27.6 pg (28.0-32.0); Mean Corpuscular Volume 80.2 fL (80.0-100.0); Nucleated Red Blood Cells % 0.0 %
[2025-03-05 07:56] LABS: Glucose 107 mg/dL (74-106)
[2025-03-05 08:53] VITALS: BP 122/63; PULSE 76; RESP 16; TEMP 97.8; O2SAT 96
--- NOTE | 2025-03-05 11:41 | DVHPN2 ---
Progress Note - Surgical Date Seen: Mar 05, 2025 Post op day Post op day: 0 Subjective Patient reports: No new complaints (No new complaints, still having the same suprapubic tenderness/pain, afebrile with vital signs stable. Had some clears yesterday but feels nauseous and stopped, having some ice and water today) Review of Systems: Deferred Objective Vital signs Vital Sign Date Time Temp Pulse Resp B/P (MAP) Pulse Ox O2 Delivery O2 Flow Rate FiO2 03/05/25 10:34 84 14 117/78 03/05/25 08:53 97.8 96 97.8 03/05/25 08:00 Room Air* 0 21 Total Intake and Output 03/04/25 03/04/25 03/05/25 15:00 23:00 07:00 Intake Total 500 ml 2265 ml 500 ml Balance 500 ml 2265 ml 500 ml Medications Current Medications Medications Dose Ordered Sig/Altaf Route Start Time Stop Time Status Last Admin Dose Admin Piperacillin Sod/ Tazobactam Sod 100 ml @ 25 mls/hr Q6HR IV 02/25/25 18:00 03/05/25 05:50 25 MLS/HR Ondansetron HCl 4 mg Q4HP PRN IV 02/25/25 11:15 03/04/25 12:30 4 MG Amino Acids 0 ml @ 0 mls/hr PER PHARMACY IV 02/26/25 15:00 Pantoprazole Sodium 40 mg DAILY IV 02/27/25 10:00 03/05/25 09:36 40 MG Enoxaparin Sodium 40 mg DAILY SC 02/27/25 10:00 03/05/25 09:36 40 MG Hydromorphone HCl 1.5 mg Q3HPRN PRN IV 02/26/25 15:30 03/05/25 10:34 1.5 MG Diagnostic Test (Pha) 1 strip Q6HR 02/26/25 18:00 03/05/25 05:57 1 STRIP Insulin Human Regular FOLLOW SLIDING SCALE Q6HR SC 02/26/25 18:00 03/04/25 11:53 2 UNITS Dextrose 50 ml UD IV 02/26/25 16:30 Sodium Chloride 10 ml QSHIFT@10,22 IV 02/26/25 22:00 03/05/25 09:36 10 ML Docusate Sodium 100 mg BID PO 02/27/25 22:00 03/05/25 09:36 100 MG Lorazepam 0.5 mg Q6HP PRN IV 03/01/25 14:30 03/04/25 21:25 0.5 MG Sodium Chloride 1,000 ml @ 50 mls/hr Q20H IV 03/02/25 11:00 03/04/25 23:00 50 MLS/HR Fat Emulsion Intravenous 150 ml/Sodium Chloride 50 meq/ Potassium Chloride 60 meq/ Potassium Phosphate 8.8 meq/ Magnesium Sulfate 4 meq/ Multivitamins 10 ml/Chromium/ Copper/Manganese/ Zinc 1 ml/Amino Acids/Dextrose 1,456.5 ml @ 61 mls/hr [id number] IV 03/04/25 22:00 03/05/25 21:59 03/04/25 21:29 61 MLS/HR Fat Emulsion Intravenous 100 ml/Sodium Chloride 60 meq/ Sodium Acetate 10 meq/Potassium Chloride 60 meq/ Calcium Gluconate 2.3 meq/Magnesium Sulfate 4 meq/ Multivitamins 10 ml/Chromium/ Copper/Manganese/ Zinc 1 ml/Amino Acids/Dextrose 1,416.9462 ml @ 59 mls/hr Q24H1M IV 03/05/25 22:00 03/06/25 21:59 Laboratory Laboratory Tests 03/05/25 06:32 Test 03/05/25 06:32 Range/Units Serum Glucose 107 H 74-106 mg/dL Microbiology Date/Time Source Procedure Growth Status 02/25/25 12:31 Blood Blood Culture - Final NO GROWTH AFTER 5 DAYS OF INCUBATION. Complete 02/25/25 10:00 Voided Urine Urine Culture - Final Complete Examination: GENERAL:Normal, ABDOMEN:Abnormal (Nondistended, soft, depressible, suprapubic tenderness, no rebound, no guarding) Labs and/or images reviewed: Labs reviewed by me (No leukocytosis white count is 6 0.9 from 9.2) Problem List/Assessment/Plan Problems: (1) Diverticulitis of intestine with perforation and abscess Assessment and Plan is a 34-year-old female who presented with Hinchey [address] there is micro perforation of the sigmoid colon with pericolic stranding and a pelvic abscess measuring 2.[address] ABD/P from 03/01:enlarging pelvic abscess that measures approximately 10 x 4 cm Interval: Patient is still having the suprapubic pain/tenderness. Try some clear liquids yesterday and felt nauseous, took herself off of the diet, taking some ice water this morning and feeling okay. No leukocytosis. Ordered a CT abdomen pelvis for tomorrow a.m., with IV contrast 1. IR consultation for drain placement due to large pelvic abscess 2. Clear liquid diet 3. CT abdomen pelvis with IV contrast for tomorrow a.m. 4. Colace 100 mg p.o. b.i.d. (stool softener) ; no laxatives 5. IV antibiotics: Zosyn 6. Pain and nausea control 7. Out of bed and ambulate 8. We will continue to monitor Plan discussed with Plan discussed with: Patient Visit Coding Surgery Date of Service if different f: Mar 05, 2025 Billing Provider: PREMA POZO MD Surgery Visit Codes: [id number] INP/OBS CARE(HIGH) PREMA POZO MD Mar 05, 2025 11:41
[2025-03-05 12:36] VITALS: BP 120/77; PULSE 82; RESP 16; TEMP 98.4; O2SAT 96
[2025-03-05 16:48] VITALS: BP 122/74; PULSE 91; RESP 16; TEMP 98; O2SAT 95
--- NOTE | 2025-03-05 17:35 | DVHPN2 ---
Subjective BETTER Reviewed: Care Plan, H&P, Labs, Medications, Previous Orders, Radiology, Other (CONSULT) Changes from previous H/P or p: No Changes General: Per HPI Objective Vitals Vital Signs Date Time Temp Pulse Resp B/P (MAP) Pulse Ox O2 Delivery O2 Flow Rate FiO2 03/05/25 16:48 98.0 91 16 122/74 (90) 95 98.0 03/05/25 08:00 Room Air* 0 21 Intake/Output Intake and Output 03/05/25 07:00 Intake Total 3265 ml Balance 3265 ml Intake Oral 1350 ml IV Total 1915 ml # Voids 5 General Appearance: Alert, Oriented X3, Cooperative HEENT: Atraumatic Lungs: Clear to auscultation, Normal air movement Cardiovascular: Regular rate, Normal S1 Abdomen: Normal bowel sounds, Soft, Other (TENDERNESS TO MID LOWER ABD) Neuro: Normal speech Medications Current Medications Medications Dose Ordered Sig/Altaf Route Start Time Stop Time Status Last Admin Dose Admin Piperacillin Sod/ Tazobactam Sod 100 ml @ 25 mls/hr Q6HR IV 02/25/25 18:00 03/05/25 12:00 25 MLS/HR Ondansetron HCl 4 mg Q4HP PRN IV 02/25/25 11:15 03/05/25 12:21 4 MG Amino Acids 0 ml @ 0 mls/hr PER PHARMACY IV 02/26/25 15:00 Pantoprazole Sodium 40 mg DAILY IV 02/27/25 10:00 03/05/25 09:36 40 MG Enoxaparin Sodium 40 mg DAILY SC 02/27/25 10:00 03/05/25 09:36 40 MG Hydromorphone HCl 1.5 mg Q3HPRN PRN IV 02/26/25 15:30 03/05/25 10:34 1.5 MG Diagnostic Test (Pha) 1 strip Q6HR 02/26/25 18:00 03/05/25 17:08 1 STRIP Insulin Human Regular FOLLOW SLIDING SCALE Q6HR SC 02/26/25 18:00 03/04/25 11:53 2 UNITS Dextrose 50 ml UD IV 02/26/25 16:30 Sodium Chloride 10 ml QSHIFT@10,22 IV 02/26/25 22:00 03/05/25 09:36 10 ML Docusate Sodium 100 mg BID PO 02/27/25 22:00 03/05/25 09:36 100 MG Lorazepam 0.5 mg Q6HP PRN IV 03/01/25 14:30 03/04/25 21:25 0.5 MG Sodium Chloride 1,000 ml @ 50 mls/hr Q20H IV 03/02/25 11:00 03/04/25 23:00 50 MLS/HR Fat Emulsion Intravenous 150 ml/Sodium Chloride 50 meq/ Potassium Chloride 60 meq/ Potassium Phosphate 8.8 meq/ Magnesium Sulfate 4 meq/ Multivitamins 10 ml/Chromium/ Copper/Manganese/ Zinc 1 ml/Amino Acids/Dextrose 1,456.5 ml @ 61 mls/hr [id number] IV 03/04/25 22:00 03/05/25 21:59 03/04/25 21:29 61 MLS/HR Fat Emulsion Intravenous 100 ml/Sodium Chloride 60 meq/ Sodium Phosphate 10 meq/Potassium Chloride 60 meq/ Calcium Gluconate 2.3 meq/Magnesium Sulfate 4 meq/ Multivitamins 10 ml/Chromium/ Copper/Manganese/ Zinc 1 ml/Amino Acids/Dextrose 1,414.4462 ml @ 59 mls/hr [id number] IV 03/05/25 22:00 03/06/25 21:59 Laboratory Results Laboratory Tests 03/05/25 06:32 Chemistry Test 03/05/25 06:32 Albumin 4.2 g/dL (3.2-4.8) Calcium Level 9.0 mg/dL (8.7-10.4) Magnesium Level 2.1 mg/dL (1.6-2.6) Phosphorus Level 2.6 mg/dL (2.4-5.1) Total Protein 7.9 g/dL (5.7-8.2) LFT Test 03/05/25 06:32 Alanine Aminotransferase (ALT) 30 U/L (7-40) Alkaline Phosphatase 108 U/L (46-116) Aspartate Amino Transferase (AST) 31 U/L (13-40) Total Bilirubin 0.4 mg/dL (0.2-1.0) Urinalysis Test 02/25/25 10:00 Urine Color Light-yellow (Yellow) Urine Clarity Clear (Clear) Urine pH 7.0 (5.0-9.0) Urine Specific [place] > 1.050 (1.001-1.035) Urine Protein Negative (Negative) Urine Ketones 1+ (Negative) H Urine Blood Negative /uL (Negative) Urine Nitrite Negative (Negative) Urine Bilirubin Negative (Negative) Urine Urobilinogen Normal mg/dL (Negative) Urine Leukocyte Esterase Negative /uL (Negative) Urine RBC 1 /hpf (0 - 4) Urine Microscopic WBC < 1 /HPF (0-5) Urine Squamous Epithelial Cells Few /hpf (<5) Urine Bacteria None seen /hpf (None Seen) Urine Glucose Normal mg/dL (Normal) Microbiology Microbiology Date/Time Source Procedure Growth Status 02/25/25 12:31 Blood Blood Culture - Final NO GROWTH AFTER 5 DAYS OF INCUBATION. Complete 02/25/25 10:00 Voided Urine Urine Culture - Final Complete Assessment/Plan Assessment/Plan Abdominal pain Diverticulitis with microperforations Diverticular abscess Morbid obesity with BMI 41.3 PCOS Plan: Continue IV antibiotics. Repeat CT scan tomorrow and possible drainage tube by Radiology. Further plan per orders Plan discussed with: Patient Date of Service: Mar 05, 2025 Billing Provider: MARLENI VELÁZQUEZ MD Common Visit Codes: [id number] INP/OBS CARE(HIGH) MARLENI VELÁZQUEZ MD Mar 05, 2025 17:35
[2025-03-05 21:00] VITALS: BP 125/73; PULSE 77; RESP 18; TEMP 97.9; O2SAT 99
[2025-03-05] MEDS: TPN PER PHARMACY IV NR (21:07)
[2025-03-06 01:00] VITALS: BP 119/74; PULSE 72; RESP 18; TEMP 97.5; O2SAT 94
[2025-03-06 05:00] VITALS: BP 122/65; PULSE 63; RESP 18; TEMP 97.5; O2SAT 95
[2025-03-06 07:08] LABS: Alanine Aminotransferase 37 U/L (7-40); Albumin 4.1 g/dL (3.2-4.8); Alkaline Phosphatase 105 U/L (46-116); Anion Gap 9 (5-15); BUN/Creatinine Ratio 12.0 (10.0-20.0); Blood Urea Nitrogen 9 mg/dL (9-23); Calcium 9.0 mg/dL (8.7-10.4); Carbon Dioxide 26 mmol/L (20-31); Chloride 102 mmol/L (98-107); Magnesium 2.0 mg/dL (1.6-2.6); Potassium 3.6 mmol/L (3.5-5.1); Sodium 137 mmol/L (136-145); Total Protein 7.7 g/dL (5.7-8.2)
[2025-03-06 07:09] LABS: Bilirubin, Total 0.4 mg/dL (0.2-1.0); Glucose 111 mg/dL (74-106); Triglycerides 229 mg/dL (< 150)
[2025-03-06 09:22] VITALS: BP_SYST 110; BP_SYST 120; BP_DIAS 64; BP_DIAS 82; PULSE 65; PULSE 76; RESP 18; TEMP 97.5; TEMP 98.6; O2SAT 95; O2SAT 96
--- NOTE | 2025-03-06 10:01 | DVHPN2 ---
Progress Note - Surgical Date Seen: Mar 06, 2025 Post op day Post op day: 0 Subjective Patient reports: No new complaints (Still having the same suprapubic pain, no nausea, no vomiting) Review of Systems: Deferred Objective Vital signs Vital Sign Date Time Temp Pulse Resp B/P (MAP) Pulse Ox O2 Delivery O2 Flow Rate FiO2 03/06/25 09:22 97.5 76 18 110/82 (91) 95 97.5 03/06/25 08:00 Room Air* 0 21 Total Intake and Output 03/05/25 03/05/25 03/06/25 15:00 23:00 07:00 Intake Total 100 ml 1100 ml 450 ml Balance 100 ml 1100 ml 450 ml Medications Current Medications Medications Dose Ordered Sig/Altaf Route Start Time Stop Time Status Last Admin Dose Admin Piperacillin Sod/ Tazobactam Sod 100 ml @ 25 mls/hr Q6HR IV 02/25/25 18:00 03/06/25 05:28 25 MLS/HR Ondansetron HCl 4 mg Q4HP PRN IV 02/25/25 11:15 03/05/25 12:21 4 MG Amino Acids 0 ml @ 0 mls/hr PER PHARMACY IV 02/26/25 15:00 Pantoprazole Sodium 40 mg DAILY IV 02/27/25 10:00 03/06/25 09:19 40 MG Enoxaparin Sodium 40 mg DAILY SC 02/27/25 10:00 03/06/25 09:19 40 MG Diagnostic Test (Pha) 1 strip Q6HR 02/26/25 18:00 03/06/25 05:37 1 STRIP Insulin Human Regular FOLLOW SLIDING SCALE Q6HR SC 02/26/25 18:00 03/04/25 11:53 2 UNITS Dextrose 50 ml UD IV 02/26/25 16:30 Sodium Chloride 10 ml QSHIFT@10,22 IV 02/26/25 22:00 03/06/25 09:19 10 ML Docusate Sodium 100 mg BID PO 02/27/25 22:00 03/06/25 09:18 100 MG Lorazepam 0.5 mg Q6HP PRN IV 03/01/25 14:30 03/04/25 21:25 0.5 MG Sodium Chloride 1,000 ml @ 50 mls/hr Q20H IV 03/02/25 11:00 03/04/25 23:00 50 MLS/HR Fat Emulsion Intravenous 100 ml/Sodium Chloride 60 meq/ Sodium Phosphate 10 meq/Potassium Chloride 60 meq/ Calcium Gluconate 2.3 meq/Magnesium Sulfate 4 meq/ Multivitamins 10 ml/Chromium/ Copper/Manganese/ Zinc 1 ml/Amino Acids/Dextrose 1,414.4462 ml @ 59 mls/hr [id number] IV 03/05/25 22:00 03/06/25 21:59 03/05/25 21:07 59 MLS/HR Fat Emulsion Intravenous 100 ml/Sodium Chloride 70 meq/ Sodium Phosphate 20 meq/Potassium Chloride 70 meq/ Magnesium Sulfate 4 meq/ Multivitamins 10 ml/Chromium/ Copper/Manganese/ Zinc 1 ml/Amino Acids/Dextrose 1,419.5 ml @ 59 mls/hr Q24H4M IV 03/06/25 22:00 03/07/25 21:59 Hydromorphone HCl 1.5 mg Q3HPRN PRN IV 03/06/25 09:30 Laboratory Laboratory Tests 03/06/25 05:49 03/05/25 06:32 Test 03/06/25 05:49 Range/Units Serum Glucose 111 H 74-106 mg/dL Microbiology Date/Time Source Procedure Growth Status 02/25/25 12:31 Blood Blood Culture - Final NO GROWTH AFTER 5 DAYS OF INCUBATION. Complete 02/25/25 10:00 Voided Urine Urine Culture - Final Complete Examination: GENERAL:Normal, ABDOMEN:Normal (Nondistended, soft, depressible, suprapubic tenderness, no rebound, no guarding) Labs and/or images reviewed: Labs reviewed by me (Renal panel within normal limits, no CBC done today) Problem List/Assessment/Plan Problems: (1) Diverticulitis of intestine with perforation and abscess Assessment and Plan is a 34-year-old female who presented with [place] [address] there is micro perforation of the sigmoid colon with pericolic stranding and a pelvic abscess measuring 2.[address] ABD/P from 03/01:enlarging pelvic abscess that measures approximately 10 x 4 cm Interval: CT from this morning shows a smaller pelvic abscess, now proximally measures 6.5 x 3.5 cm. Abscess is not going to get drain at this point, we will continue to observe and manage conservatively with IV antibiotics. 1. Advance diet to full liquid diet 2. Start weaning IV pain meds, and switched him to p.o. pain meds. Recommend Tylenol and ibuprofen for baseline pain control, [place] 5 and 10mg prn for moderate and severe pain. 4. Colace 100 mg p.o. b.i.d. (stool softener) ; no laxatives 5. IV antibiotics: Zosyn 6. Pain and nausea control 7. Out of bed and ambulate 8. We will continue to monitor My Orders My Orders Orders - PREMA POZO MD Procedure Category Date Status Time Ct Ab Pel With Iv Con CT 03/06/25 Taken Only 04:00 Plan discussed with Plan discussed with: Patient Visit Coding Surgery Date of Service if different f: Mar 06, 2025 Billing Provider: PREMA POZO MD Surgery Visit Codes: [id number] INP/OBS CARE(HIGH) PREMA POZO MD Mar 06, 2025 10:01
[2025-03-06] MEDS: HYDROmorphone HCL 2 MG/ML VL/or syr IV PRN (10:13)
--- NOTE | 2025-03-06 11:00 | DVH ---
CT CT AB PEL WITH IV CON ONLY INDICATION: Pelvic abscess re-evaluation EXAM DATE: 03/06/2025 09:30 AM COMPARISON: CT CT AB PEL WITH IV CON ONLY on DOS: 03/01/25, CT CT AB PEL WITH IV CON ONLY on DOS: 02/25, CT CT AB PEL WITH IV CON ONLY on DOS: 02/23/25 RADIATION DOSE: CTDIvol: 20.1 mGy, DLP: 1308.25 mGy*cm PROCEDURE: Helical CT images were obtained of the abdomen and pelvis with IV contrast Sagittal and co josafat reconstructions are provided. ORAL CONTRAST: None. ADDITIONAL IMAGES / REFORMATS: None All CT s cans at this medical facility are performed using dose modulation techniques as appropriate to a perf ormed exam including the following: Automated exposure control was utilized; adjustment of the MA and /or KV according to patient size; and use of iterative reconstruction technique. FINDINGS: LUNG BASE: Normal. LIVER: Normal. GALLBLADDER AND BILIARY TREE: No calcified gallstones. Normal caliber wall. No intra- or extrahepatic biliary ductal dilation. PANCREAS: Normal. SPLEEN: Normal. BOWEL: Moderate colonic diverticulosis with sigmoid colonic diverticulitis and phlegmon along the sig moid colon. ADRENALS: Normal. KIDNEYS AND URETER: Punctate nonobstructive right kidney stone. BLADDER: Normal. REPRODUCTIVE ORGANS: Interval decrease in size of an inflammed round lesion in the left adnexa measur es 3.1 cm previously 4.1 cm could be the left ovary. LYMPH NODES:No lymphadenopathy. PERITONEUM: Decreased amount of pelvic fluid. VESSELS: Scattered atherosclerotic calcifications are noted. RETROPERITONEUM: Normal. ABDOMINAL WALL: Normal. BONES: Scattered osseous degenerative changes are noted. IMPRESSION: Moderate colonic diverticulosis with sigmoid colonic diverticulitis and phlegmon along the sigmoid co ana. Interval decrease in size of an inflammed round lesion in the left adnexa measures 3.1 cm previ ously 4.1 cm could be the left ovary. Decreased amount of pelvic fluid. Overall improvement compared to prior CT scan.
[2025-03-06 13:21] VITALS: BP_SYST 120; BP_SYST 127; BP_DIAS 77; BP_DIAS 81; PULSE 63; PULSE 84; RESP 18; RESP 19; TEMP 97.4; TEMP 97.5; O2SAT 95; O2SAT 97
--- NOTE | 2025-03-06 13:37 | DVHPN2 ---
Subjective Patient reports some improvement with new pain regimen Reviewed: Care Plan, H&P, Labs, Medications, Previous Orders, Radiology, Other (CONSULT) Changes from previous H/P or p: No Changes General: Per HPI Objective Vitals Vital Signs Date Time Temp Pulse Resp B/P (MAP) Pulse Ox O2 Delivery O2 Flow Rate FiO2 03/06/25 13:21 97.4 84 18 120/81 (94) 95 97.4 03/06/25 08:00 Room Air* 0 21 Intake/Output Intake and Output 03/06/25 07:00 Intake Total 1650 ml Balance 1650 ml Intake Oral 1250 ml IV Total 400 ml # Voids 6 General Appearance: Alert, Oriented X3, Cooperative HEENT: Atraumatic, PERRLA Lungs: Clear to auscultation, Normal air movement Cardiovascular: Regular rate, Normal S1 Abdomen: Normal bowel sounds, Soft, Other (TENDERNESS TO MID LOWER ABD) Neuro: Normal speech Medications Current Medications Medications Dose Ordered Sig/Altaf Route Start Time Stop Time Status Last Admin Dose Admin Piperacillin Sod/ Tazobactam Sod 100 ml @ 25 mls/hr Q6HR IV 02/25/25 18:00 03/06/25 11:33 25 MLS/HR Ondansetron HCl 4 mg Q4HP PRN IV 02/25/25 11:15 03/05/25 12:21 4 MG Amino Acids 0 ml @ 0 mls/hr PER PHARMACY IV 02/26/25 15:00 Pantoprazole Sodium 40 mg DAILY IV 02/27/25 10:00 03/06/25 09:19 40 MG Enoxaparin Sodium 40 mg DAILY SC 02/27/25 10:00 03/06/25 09:19 40 MG Diagnostic Test (Pha) 1 strip Q6HR 02/26/25 18:00 03/06/25 11:32 1 STRIP Insulin Human Regular FOLLOW SLIDING SCALE Q6HR SC 02/26/25 18:00 03/06/25 11:39 2 UNITS Dextrose 50 ml UD IV 02/26/25 16:30 Sodium Chloride 10 ml QSHIFT@10,22 IV 02/26/25 22:00 03/06/25 09:19 10 ML Docusate Sodium 100 mg BID PO 02/27/25 22:00 03/06/25 09:18 100 MG Lorazepam 0.5 mg Q6HP PRN IV 03/01/25 14:30 03/04/25 21:25 0.5 MG Sodium Chloride 1,000 ml @ 50 mls/hr Q20H IV 03/02/25 11:00 03/04/25 23:00 50 MLS/HR Fat Emulsion Intravenous 100 ml/Sodium Chloride 60 meq/ Sodium Phosphate 10 meq/Potassium Chloride 60 meq/ Calcium Gluconate 2.3 meq/Magnesium Sulfate 4 meq/ Multivitamins 10 ml/Chromium/ Copper/Manganese/ Zinc 1 ml/Amino Acids/Dextrose 1,414.4462 ml @ 59 mls/hr [id number] IV 03/05/25 22:00 03/06/25 21:59 03/05/25 21:07 59 MLS/HR Fat Emulsion Intravenous 100 ml/Sodium Chloride 70 meq/ Sodium Phosphate 20 meq/Potassium Chloride 70 meq/ Magnesium Sulfate 4 meq/ Multivitamins 10 ml/Chromium/ Copper/Manganese/ Zinc 1 ml/Amino Acids/Dextrose 1,419.5 ml @ 59 mls/hr Q24H4M IV 03/06/25 22:00 03/07/25 21:59 Hydromorphone HCl 1.5 mg Q3HPRN PRN IV 03/06/25 09:30 03/06/25 10:13 1.5 MG Oxycodone/ Acetaminophen 1 tab Q4HP PRN PO 03/06/25 13:45 UNV Laboratory Results Laboratory Tests 03/05/25 06:32 03/06/25 05:49 Chemistry Test 03/06/25 05:49 Albumin 4.1 g/dL (3.2-4.8) Calcium Level 9.0 mg/dL (8.7-10.4) Magnesium Level 2.0 mg/dL (1.6-2.6) Phosphorus Level 2.7 mg/dL (2.4-5.1) Total Protein 7.7 g/dL (5.7-8.2) Lipid panel Test 03/06/25 05:49 Triglycerides Level 229 mg/dL (< 150) H LFT Test 03/06/25 05:49 Alanine Aminotransferase (ALT) 37 U/L (7-40) Alkaline Phosphatase 105 U/L (46-116) Aspartate Amino Transferase (AST) 35 U/L (13-40) Total Bilirubin 0.4 mg/dL (0.2-1.0) Urinalysis Test 02/25/25 10:00 Urine Color Light-yellow (Yellow) Urine Clarity Clear (Clear) Urine pH 7.0 (5.0-9.0) Urine Specific [place] > 1.050 (1.001-1.035) Urine Protein Negative (Negative) Urine Ketones 1+ (Negative) H Urine Blood Negative /uL (Negative) Urine Nitrite Negative (Negative) Urine Bilirubin Negative (Negative) Urine Urobilinogen Normal mg/dL (Negative) Urine Leukocyte Esterase Negative /uL (Negative) Urine RBC 1 /hpf (0 - 4) Urine Microscopic WBC < 1 /HPF (0-5) Urine Squamous Epithelial Cells Few /hpf (<5) Urine Bacteria None seen /hpf (None Seen) Urine Glucose Normal mg/dL (Normal) Microbiology Microbiology Date/Time Source Procedure Growth Status 02/25/25 12:31 Blood Blood Culture - Final NO GROWTH AFTER 5 DAYS OF INCUBATION. Complete 02/25/25 10:00 Voided Urine Urine Culture - Final Complete Labs and/or images reviewed: Labs reviewed by me, Image(s) reviewed by me Assessment/Plan Assessment/Plan Impression: -sepsis -perforated sigmoid diverticulitis -obesity -hyperkalemia Plan: Events: Patient tolerating clear liquids overnight. CT scan of the abdomen and pelvis repeated today. Abscess improving. Patient continues to be afebrile with no leukocytosis. Patient has been advanced to full liquid diet, tolerating -Pain management: Continue Dilaudid 1.5 mg IV q.3 hours as needed, add Percocet -discontinue TPN after current bag -surgical consultation with recommendations reviewed -PUD, DVT prophylaxis -daily labs Total time spent with patient discussing and formulating plan of care: 35 minutes. This medical document was created using an electronic medical record system with [employer] dictation system. Although this document has been carefully reviewed, there may still be some phonetic and typographical errors. These areas are purely typographical due to imperfections of the software programs, and do not reflect any compromise in the patient's medical care. Plan discussed with: Patient, Other (RN) My Orders Orders - KALYAN RIGGS NP Procedure Category Date Status Time Amino Acid PHA 03/06/25 In Process Infusion... W/Fat 22:00 Comprehensive LAB 03/07/25 Verified Metabolic Panel 05:00 Magnesium LAB 03/07/25 Verified 05:00 Phosphorus LAB 03/07/25 Verified 05:00 Tpn Per Pharmacy [facility] 03/06/25 In Process 22:00 Hydromorphone PHA 03/06/25 In Process Injection (Dilaudid 09:30 Oxycodone W/ Acet PHA 03/06/25 Logged 5/325mg Tab (Percocet 13:45 Date of Service: Mar 06, 2025 Billing Provider: KALYAN RIGGS NP Common Visit Codes: [id number] INP/OBS CARE(HIGH) KALYAN RIGGS NP Mar 06, 2025 13:37
[2025-03-06 17:00] VITALS: BP 127/72; PULSE 79; RESP 18; TEMP 97.5; O2SAT 98
[2025-03-06 21:00] VITALS: BP 134/81; PULSE 82; RESP 18; TEMP 98.1; O2SAT 96
[2025-03-06] MEDS ORDERED: TPN PER PHARMACY IV NR (22:00)
[2025-03-07 01:00] VITALS: BP 108/73; PULSE 83; RESP 17; TEMP 98.3; O2SAT 94
[2025-03-07 05:00] VITALS: BP 124/68; PULSE 78; RESP 18; TEMP 98.3; O2SAT 95
[2025-03-07 07:20] LABS: Hematocrit 35.4 % (36.0-46.0); Hemoglobin 12.1 g/dL (12.2-16.2); Mean Corpuscular Hemoglobin 27.3 pg (28.0-32.0); Mean Corpuscular Volume 80.3 fL (80.0-100.0); Nucleated Red Blood Cells % 0.0 %
[2025-03-07 07:47] LABS: Alanine Aminotransferase 39 U/L (7-40); Albumin 4.0 g/dL (3.2-4.8); Alkaline Phosphatase 102 U/L (46-116); Anion Gap 12 (5-15); BUN/Creatinine Ratio 15.8 (10.0-20.0); Blood Urea Nitrogen 12 mg/dL (9-23); Calcium 8.8 mg/dL (8.7-10.4); Carbon Dioxide 24 mmol/L (20-31); Chloride 104 mmol/L (98-107); Glucose 84 mg/dL (74-106); Magnesium 1.9 mg/dL (1.6-2.6); Potassium 3.8 mmol/L (3.5-5.1); Sodium 140 mmol/L (136-145); Total Protein 7.5 g/dL (5.7-8.2)
[2025-03-07 07:48] LABS: Bilirubin, Total 0.3 mg/dL (0.2-1.0)
--- NOTE | 2025-03-07 10:25 | DVHPN2 ---
Progress Note - Surgical Date Seen: Mar 07, 2025 Post op day Post op day: 0 Subjective Patient reports: Feels better (Patient continues to improve, feeling better, tolerated full liquid diet, had 2 bowel movements nonbloody, afebrile with vital stable.) Review of Systems: Deferred Objective Vital signs Vital Sign Date Time Temp Pulse Resp B/P (MAP) Pulse Ox O2 Delivery O2 Flow Rate FiO2 03/07/25 08:00 Room Air* 0 21 03/07/25 05:00 98.3 78 18 124/68 (86) 95 98.3 Total Intake and Output 03/06/25 03/06/25 03/07/25 15:00 23:00 07:00 Intake Total 2750 ml 500 ml Balance 2750 ml 500 ml Medications Current Medications Medications Dose Ordered Sig/Altaf Route Start Time Stop Time Status Last Admin Dose Admin Piperacillin Sod/ Tazobactam Sod 100 ml @ 25 mls/hr Q6HR IV 02/25/25 18:00 03/07/25 06:20 25 MLS/HR Ondansetron HCl 4 mg Q4HP PRN IV 02/25/25 11:15 03/05/25 12:21 4 MG Pantoprazole Sodium 40 mg DAILY IV 02/27/25 10:00 03/07/25 08:39 40 MG Enoxaparin Sodium 40 mg DAILY SC 02/27/25 10:00 03/07/25 08:40 40 MG Diagnostic Test (Pha) 1 strip Q6HR 02/26/25 18:00 03/07/25 06:08 1 STRIP Insulin Human Regular FOLLOW SLIDING SCALE Q6HR SC 02/26/25 18:00 03/06/25 11:39 2 UNITS Dextrose 50 ml UD IV 02/26/25 16:30 Sodium Chloride 10 ml QSHIFT@10,22 IV 02/26/25 22:00 03/07/25 08:40 10 ML Docusate Sodium 100 mg BID PO 02/27/25 22:00 03/07/25 08:39 100 MG Lorazepam 0.5 mg Q6HP PRN IV 03/01/25 14:30 03/04/25 21:25 0.5 MG Sodium Chloride 1,000 ml @ 50 mls/hr Q20H IV 03/02/25 11:00 03/04/25 23:00 50 MLS/HR Fat Emulsion Intravenous 100 ml/Sodium Chloride 70 meq/ Sodium Phosphate 20 meq/Potassium Chloride 70 meq/ Magnesium Sulfate 4 meq/ Multivitamins 10 ml/Chromium/ Copper/Manganese/ Zinc 1 ml/Amino Acids/Dextrose 1,419.5 ml @ 59 mls/hr Q24H4M IV 03/06/25 22:00 03/06/25 22:00 Cancel Hydromorphone HCl 1.5 mg Q3HPRN PRN IV 03/06/25 09:30 03/06/25 17:47 1.5 MG Oxycodone HCl 5 mg Q4HP PRN PO 03/06/25 13:45 03/06/25 15:42 5 MG Laboratory Laboratory Tests 03/07/25 05:53 Test 03/07/25 05:53 Range/Units Serum Glucose 84 74-106 mg/dL Microbiology Date/Time Source Procedure Growth Status 02/25/25 12:31 Blood Blood Culture - Final NO GROWTH AFTER 5 DAYS OF INCUBATION. Complete 02/25/25 10:00 Voided Urine Urine Culture - Final Complete Examination: GENERAL:Normal, ABDOMEN:Normal (Nondistended, soft, depressible, very minimal suprapubic tenderness, no rebound, no guarding) Labs and/or images reviewed: Labs reviewed by me Problem List/Assessment/Plan Assessment and Plan is a 34-year-old female who presented with [place] [address]. [address] there is micro perforation of the sigmoid colon with pericolic stranding and a pelvic abscess measuring 2.[address] ABD/P from 03/01:enlarging pelvic abscess that measures approximately 10 x 4 cm Interval: Patient continues to improve, very minimal suprapubic abdominal pain which correlates to physical exam. Patient tolerated full liquid diet, feeling hungrier, will advance to regular diet. 1. Advance diet to regular diet 2. Start weaning IV pain meds, and switched him to p.o. pain meds. Recommend Tylenol and ibuprofen for baseline pain control, [place] 5 and 10mg prn for moderate and severe pain. 4. Colace 100 mg p.o. b.i.d. (stool softener) ; no laxatives 5. IV antibiotics: Zosyn 6. Pain and nausea control 7. Out of bed and ambulate 8. We will continue to monitor My Orders My Orders Orders - PREMA POZO MD Procedure Category Date Status Time Full Liq Diet DIET 03/06/25 Transmitted Lunch Plan discussed with Plan discussed with: Patient Visit Coding Surgery Date of Service if different f: Mar 07, 2025 Billing Provider: PREMA POZO MD Surgery Visit Codes: [id number] INP/OBS CARE(HIGH) PREMA POZO MD Mar 07, 2025 10:25
[2025-03-07] MEDS ORDERED: LEVO500T91 PO (13:04)
[2025-03-07] MEDS ORDERED: METR-344 PO (13:04)
[2025-03-07] MEDS ORDERED: TRAM-626 PO (13:06)
[2025-03-07] MEDS ORDERED: IBUP-1455 PO (13:06)
--- NOTE | 2025-03-07 13:08 | DVHPN2 ---
Subjective Patient reports some improvement with new pain regimen Reviewed: Care Plan, H&P, Labs, Medications, Previous Orders, Radiology, Other (CONSULT) Changes from previous H/P or p: No Changes General: Per HPI Objective Vitals Vital Signs Date Time Temp Pulse Resp B/P (MAP) Pulse Ox O2 Delivery O2 Flow Rate FiO2 03/07/25 08:00 Room Air* 0 21 03/07/25 05:00 98.3 78 18 124/68 (86) 95 98.3 Intake/Output Intake and Output 03/07/25 07:00 Intake Total 3250 ml Balance 3250 ml Intake Oral 1550 ml IV Total 1700 ml # Voids 6 # Bowel Movements 2 General Appearance: Alert, Oriented X3, Cooperative HEENT: Atraumatic, PERRLA Lungs: Clear to auscultation, Normal air movement Cardiovascular: Regular rate, Normal S1 Abdomen: Normal bowel sounds, Soft, Other (TENDERNESS TO MID LOWER ABD) Neuro: Normal speech Medications Current Medications Medications Dose Ordered Sig/Altaf Route Start Time Stop Time Status Last Admin Dose Admin Piperacillin Sod/ Tazobactam Sod 100 ml @ 25 mls/hr Q6HR IV 02/25/25 18:00 03/07/25 12:24 25 MLS/HR Ondansetron HCl 4 mg Q4HP PRN IV 02/25/25 11:15 03/05/25 12:21 4 MG Pantoprazole Sodium 40 mg DAILY IV 02/27/25 10:00 03/07/25 08:39 40 MG Enoxaparin Sodium 40 mg DAILY SC 02/27/25 10:00 03/07/25 08:40 40 MG Diagnostic Test (Pha) 1 strip Q6HR 02/26/25 18:00 03/07/25 12:02 1 STRIP Insulin Human Regular FOLLOW SLIDING SCALE Q6HR SC 02/26/25 18:00 03/06/25 11:39 2 UNITS Dextrose 50 ml UD IV 02/26/25 16:30 Sodium Chloride 10 ml QSHIFT@10,22 IV 02/26/25 22:00 03/07/25 08:40 10 ML Docusate Sodium 100 mg BID PO 02/27/25 22:00 03/07/25 08:39 100 MG Sodium Chloride 1,000 ml @ 50 mls/hr Q20H IV 03/02/25 11:00 03/04/25 23:00 50 MLS/HR Fat Emulsion Intravenous 100 ml/Sodium Chloride 70 meq/ Sodium Phosphate 20 meq/Potassium Chloride 70 meq/ Magnesium Sulfate 4 meq/ Multivitamins 10 ml/Chromium/ Copper/Manganese/ Zinc 1 ml/Amino Acids/Dextrose 1,419.5 ml @ 59 mls/hr Q24H4M IV 03/06/25 22:00 03/06/25 22:00 Cancel Oxycodone HCl 5 mg Q4HP PRN PO 03/06/25 13:45 03/06/25 15:42 5 MG Hydromorphone HCl 1.5 mg Q8HPRN PRN IV 03/07/25 13:15 UNV Ibuprofen 800 mg Q8HP PRN PO 03/07/25 13:15 UNV Laboratory Results Laboratory Tests 03/07/25 05:53 Chemistry Test 03/07/25 05:53 Albumin 4.0 g/dL (3.2-4.8) Calcium Level 8.8 mg/dL (8.7-10.4) Magnesium Level 1.9 mg/dL (1.6-2.6) Phosphorus Level 2.9 mg/dL (2.4-5.1) Total Protein 7.5 g/dL (5.7-8.2) LFT Test 03/07/25 05:53 Alanine Aminotransferase (ALT) 39 U/L (7-40) Alkaline Phosphatase 102 U/L (46-116) Aspartate Amino Transferase (AST) 35 U/L (13-40) Total Bilirubin 0.3 mg/dL (0.2-1.0) Urinalysis Test 02/25/25 10:00 Urine Color Light-yellow (Yellow) Urine Clarity Clear (Clear) Urine pH 7.0 (5.0-9.0) Urine Specific [place] > 1.050 (1.001-1.035) Urine Protein Negative (Negative) Urine Ketones 1+ (Negative) H Urine Blood Negative /uL (Negative) Urine Nitrite Negative (Negative) Urine Bilirubin Negative (Negative) Urine Urobilinogen Normal mg/dL (Negative) Urine Leukocyte Esterase Negative /uL (Negative) Urine RBC 1 /hpf (0 - 4) Urine Microscopic WBC < 1 /HPF (0-5) Urine Squamous Epithelial Cells Few /hpf (<5) Urine Bacteria None seen /hpf (None Seen) Urine Glucose Normal mg/dL (Normal) Microbiology Microbiology Date/Time Source Procedure Growth Status 02/25/25 12:31 Blood Blood Culture - Final NO GROWTH AFTER 5 DAYS OF INCUBATION. Complete 02/25/25 10:00 Voided Urine Urine Culture - Final Complete Labs and/or images reviewed: Labs reviewed by me, Image(s) reviewed by me Assessment/Plan Assessment/Plan Impression: -sepsis -perforated sigmoid diverticulitis -obesity -hyperkalemia Plan: Events: Abdominal pain improving. Patient tolerating full liquid diet. Advanced to mechanical soft. Transitioned from IV to p.o. analgesics. Repeat CBC in a.m.. Plan for discharge if patient remains without leukocytosis and no increase in abdominal pain. -Pain management: Change Dilaudid to Q 8 hours as needed. Continue oxycodone, add Motrin -surgical consultation with recommendations reviewed -PUD, DVT prophylaxis -daily labs Total time spent with patient discussing and formulating plan of care: 35 minutes. This medical document was created using an electronic medical record system with [email or web address] dictation system. Although this document has been carefully reviewed, there may still be some phonetic and typographical errors. These areas are purely typographical due to imperfections of the software programs, and do not reflect any compromise in the patient's medical care. Plan discussed with: Patient, Other (RN) My Orders Orders - KALYAN RIGGS NP Procedure Category Date Status Time Complete Blood Count LAB 03/08/25 Verified 05:00 Complete Blood Count LAB 03/09/25 Verified 05:00 Oxycodone Immediate PHA 03/06/25 In Process Rel Tablet 13:45 Hydromorphone PHA 03/07/25 Logged Injection (Dilaudid 13:15 Mechanical Soft Diet DIET 03/07/25 Transmitted Lunch Ibuprofen Tablet PHA 03/07/25 Logged (Motrin Tablet) 13:15 Date of Service: Mar 07, 2025 Billing Provider: KALYAN RIGGS NP Common Visit Codes: [id number] INP/OBS CARE(HIGH) KALYAN RIGGS NP Mar 07, 2025 13:08
[2025-03-07] MEDS ORDERED: HYDROmorphone HCL 2 MG/ML VL/or syr IV PRN (13:15)
[2025-03-07 13:24] VITALS: BP 129/77; PULSE 77; RESP 18; TEMP 97; O2SAT 99
[2025-03-07 17:07] VITALS: BP 125/69; PULSE 88; RESP 18; TEMP 98.2; O2SAT 96
[2025-03-07] MEDS: IBUPROFEN 800 MG TAB PO PRN (18:29)
[2025-03-07 20:00] VITALS: PULSE 86; RESP 16; O2SAT 96
[2025-03-07 21:00] VITALS: BP 117/85; PULSE 86; RESP 16; TEMP 97.7; O2SAT 85
[2025-03-08 00:51] VITALS: BP 112/71; PULSE 73; RESP 16; TEMP 97.3; O2SAT 96
[2025-03-08 04:55] VITALS: BP 120/72; PULSE 73; RESP 16; TEMP 95.3; O2SAT 97
[2025-03-08 08:16] LABS: Hematocrit 37.0 % (36.0-46.0); Hemoglobin 12.7 g/dL (12.2-16.2); Mean Corpuscular Hemoglobin 27.4 pg (28.0-32.0); Mean Corpuscular Volume 80.1 fL (80.0-100.0); Nucleated Red Blood Cells % 0.0 %
[2025-03-08] MEDS ORDERED: DOCU-94 PO (09:27)
--- NOTE | 2025-03-08 09:38 | DVHDS2 ---
Discharge Summary Date of Admission Feb 25, 2025 at 11:08 Date of Discharge: Mar 08, 2025 Admitting Diagnosis Sepsis secondary to perforated diverticulitis with abscess Labs/Diagnostic Data: Laboratory Results Test 03/08/25 07:19 03/07/25 11:37 03/07/25 05:53 03/06/25 05:49 White Blood Count 8.9 10^3/uL (4.4-10.8) Red Blood Count 4.62 10^6/uL (4.0-5.20) Hemoglobin 12.7 g/dL (12.2-16.2) Hematocrit 37.0 % (36.0-46.0) Mean Corpuscular Volume 80.1 fL (80.0-100.0) Mean Corpuscular Hemoglobin 27.4 pg (28.0-32.0) Mean Corpuscular Hemoglobin Concent 34.2 g/dL (32.0-36.0) Red Cell Distribution Width 13.6 % (11.8-14.3) Platelet Count 272 10^3/uL (140-450) Mean Platelet Volume 8.4 fL (6.9-10.8) Neutrophils (%) (Auto) 68.6 % (37.0-80.0) Lymphocytes (%) (Auto) 22.1 % (10.0-50.0) Monocytes (%) (Auto) 7.2 % (0.0-12.0) Eosinophils (%) (Auto) 1.7 % (0.0-7.0) Basophils (%) (Auto) 0.4 % (0.0-2.0) Neutrophils # (Auto) 6.1 10 ^3/uL (1.6-8.6) Lymphocytes # (Auto) 2.0 10 ^3/uL (0.4-5.4) Monocytes # (Auto) 0.6 10 ^3/uL (0-1.3) Eosinophils # (Auto) 0.2 10 ^3/uL (0-0.8) Basophils # (Auto) 0 10 ^3/uL (0-0.2) Nucleated Red Blood Cells 0.0 % POC Glucose 93 mg/dl (70-106) Sodium Level 140 mmol/L (136-145) Potassium Level 3.8 mmol/L (3.5-5.1) Chloride Level 104 mmol/L (98-107) Carbon Dioxide Level 24 mmol/L (20-31) Anion Gap 12 (5-15) Blood Urea Nitrogen 12 mg/dL (9-23) Creatinine 0.76 mg/dL (0.550-1.02) Glomerular Filtration Rate Calc 107 mL/min (>90) BUN/Creatinine Ratio 15.8 (10.0-20.0) Serum Glucose 84 mg/dL (74-106) Calcium Level 8.8 mg/dL (8.7-10.4) Phosphorus Level 2.9 mg/dL (2.4-5.1) Magnesium Level 1.9 mg/dL (1.6-2.6) Total Bilirubin 0.3 mg/dL (0.2-1.0) Aspartate Amino Transferase (AST) 35 U/L (13-40) Alanine Aminotransferase (ALT) 39 U/L (7-40) Alkaline Phosphatase 102 U/L (46-116) Total Protein 7.5 g/dL (5.7-8.2) Albumin 4.0 g/dL (3.2-4.8) Triglycerides Level 229 mg/dL (< 150) Test 03/04/25 06:16 02/28/25 10:59 02/25/25 12:32 02/25/25 10:00 Hemoglobin A1c 5.3 % A1C (<5.7) Stool Occult Blood Negative (Negative) Stool Occult Blood Sample #3 (Negative) Lactic Acid Level 1.8 mmol/L (0.4-2.0) Urine Color Light-yellow (Yellow) Urine Clarity Clear (Clear) Urine pH 7.0 (5.0-9.0) Urine Specific [place] > 1.050 (1.001-1.035) Urine Protein Negative (Negative) Urine Ketones 1+ (Negative) Urine Blood Negative /uL (Negative) Urine Nitrite Negative (Negative) Urine Bilirubin Negative (Negative) Urine Urobilinogen Normal mg/dL (Negative) Urine Leukocyte Esterase Negative /uL (Negative) Urine RBC 1 /hpf (0 - 4) Urine Microscopic WBC < 1 /HPF (0-5) Urine Squamous Epithelial Cells Few /hpf (<5) Urine Bacteria None seen /hpf (None Seen) Urine Glucose Normal mg/dL (Normal) Urine Opiates Screen Neg (NEGATIVE) Urine Fentanyl Screen Neg (NEGATIVE) Urine Barbiturates Screen Neg (NEGATIVE) Urine Phencyclidine Screen Neg (NEGATIVE) Urine Amphetamines Screen Neg (NEGATIVE) Urine Benzodiazepines Screen Neg (NEGATIVE) Urine Cocaine Screen Neg (NEGATIVE) Urine Cannabinoids Screen Neg (NEGATIVE) Test 02/25/25 08:40 Prothrombin Time 11.3 sec (9.3-11.8) Prothrombin Time INR 1.07 (0.9-1.15) Lactate Dehydrogenase 441 U/L (120-246) Other Laboratory Tests 03/08/25 07:19 03/07/25 05:53 Brief Hx & Hospital Course: History of Present Illness Sveta Holliday is a 34-year-old female with past medical history of uterine fibroids and PCOS who presents to the ED with left lower quadrant pain with nausea and vomiting x2 days. She reports she was here 2 days ago and diagnosed with diverticulitis and sent home with pain medications and antibiotics. This morning she states that she was walking to the bathroom and felt sudden sharp left lower quadrant abdominal pain. She reports the pain being 10/10 tearing like and constant. She reports that she has daily bowel movements but they are not lumpy or hard but reports that today's was. Patient denies any melena or hematemesis or hematochezia. Patient's boyfriend Ilia is at the bedside. Patient reports that she woke up and cold sweats this morning and felt warm. Boyfriend states that she felt warm but no fever. Patient denies any recent trauma or injury, recent sick contacts, recent ingestion of spoiled food, recent travels, chest pain, shortness of breath, fever, chills, diarrhea, lightheadedness, weakness, dizziness, or urinary symptoms. Course of hospitalization: Patient was continued on IV antibiotic therapy with Zosyn. Patient was made NPO. PICC line was placed with TPN started. Surgical and interventional radiology consultation was obtained. Patient was monitored, with follow up CT scans with IV contrast. Patient had improvement with abscess. Leukocytosis has resolved. Patient's diet has been advanced over the past four days, now on a mechanical soft diet with no increase in abdominal pain, patient remaining afebrile, as well as lab work showing no increase in white blood cell count. Lifestyle modification education was given to the patient regarding dietary restrictions for diverticulitis. Patient we will be continued on antibiotic therapy with Levaquin 500 mg p.o. daily times 10 days as well as Flagyl 500 mg p.o. 3 times a day for 10 days. She will be prescribed tramadol, ibuprofen for pain, and Colace for constipation. She will follow up with the discharge Clinic in one week and established appointment with Gastroenterology, Dr. Angie Friedman in 3-4 weeks. Patient was agreeable with discharge plan. All questions answered. Physical examination General: Alert and Oriented x3. No acute distress. Well-nourished. Obese Eyes: EOMI. Anicteric. HENT: Moist mucous membranes. Lungs: Clear to auscultation bilaterally. No accessory muscle use. Cardiovascular: Regular rate and rhythm. No murmur. No JVD. Abdomen: Soft, non-tender and non-distended. No palpable masses. Extremities: No edema. Non-tender. Skin: No rashes or lesions. Warm. Neurologic: No focal neurological deficits. CN II-XII grossly intact, but not individually tested. Psychiatric: Cooperative. Appropriate mood and affect. Total time spent with patient discussing and formulating plan of care: 35 minutes. This medical document was created using an electronic medical record system with [employer] dictation system. Although this document has been carefully reviewed, there may still be some phonetic and typographical errors. These areas are purely typographical due to imperfections of the software programs, and do not reflect any compromise in the patient's medical care. Condition at Discharge: Fair Final Diagnosis/Problems List Sepsis secondary to perforated diverticulitis with abscess -sepsis -perforated sigmoid diverticulitis -obesity -hyperkalemia Discharge Disposition: Home Discharge Instruct/Medications Diet: Regular Activity: No Restrictions, As Tolerated Follow Up/Referral: Discharge Clinic in one week Dr. Angie Friedman in 3-4 weeks Medications: Tramadol 50 mg p.o. q.8 hours as needed for [id number] pain Ibuprofen 800 mg p.o. q8hrs as needed for mild-moderate pain. Colace 100 mg p.o. b.i.d. as needed for constipation Levaquin 500 mg p.o. daily times 10 days Flagyl 500 mg p.o. 3 times a day times 10 days Scheduled Amoxicillin & Pot Clavulanate (Augmentin Tablet), 875 MG PO BID Docusate Sodium (Colace), 1 CAP PO BID Levofloxacin Hemihydrate (Levaquin 500 Mg), 1 TAB PO DAILY Metronidazole (Flagyl), 1 TAB PO TID Scheduled PRN Ibuprofen Micronized (Ibuprofen), 800 MG PO Q8HP PRN Ibuprofen Micronized (Ibuprofen), 800 MG PO Q8HP PRN Tramadol HCl (Tramadol HCl), 50 MG PO Q8HP PRN Tramadol Hcl (Tramadol Hcl), 50 MG PO Q6HP PRN 36 Discharge Statement: "Patient was advised to return to the ER or call 911 if any headaches, dizziness, shortness of breath, chest pain, abdominal pain, bleeding, fevers, or worsening of medical condition. Patient was counseled about treatment plan, medications, possible side effects, patientverbalized understanding. All questions were answered to the best of my ability. This discharge took greater then 30 minutes in planning, reviewing documentation, counseling the patient, and discussing with other team members." ASSESSMENT ASSESSMENT Assessment Sepsis secondary to perforated diverticulitis with abscess Date of Service: Mar 08, 2025 Billing Provider: KALYAN RIGGS NP Common Visit Codes: [id number] DISCH DAY >30min KALYAN RIGGS NP Mar 08, 2025 09:38
[2025-03-08 11:28] VITALS: BP 120/72; PULSE 73; RESP 16; TEMP 95.3; O2SAT 97
--- NOTE | 2025-03-08 15:07 | DVHPN2 ---
Progress Note - Surgical Date Seen: Mar 08, 2025 Post op day Post op day: 0 Subjective Patient reports: Feels better (Patient feeling well this morning had 3 bowel movements in the last 24 hours and two the prior 24 hours, no blood in the stool, tolerating regular diet, afebrile and with vital stable.) Review of Systems: Deferred Objective Vital signs Vital Sign Date Time Temp Pulse Resp B/P (MAP) Pulse Ox O2 Delivery O2 Flow Rate FiO2 03/08/25 11:28 95.3 73 16 97 03/08/25 08:00 Room Air* 0 21 03/08/25 04:55 120/72 (88) Total Intake and Output 03/07/25 03/07/25 03/08/25 15:00 23:00 07:00 Intake Total 100 ml 1025 ml 305 ml Balance 100 ml 1025 ml 305 ml Medications Current Medications Medications Dose Ordered Sig/Altaf Route Start Time Stop Time Status Last Admin Dose Admin Fat Emulsion Intravenous 100 ml/Sodium Chloride 70 meq/ Sodium Phosphate 20 meq/Potassium Chloride 70 meq/ Magnesium Sulfate 4 meq/ Multivitamins 10 ml/Chromium/ Copper/Manganese/ Zinc 1 ml/Amino Acids/Dextrose 1,419.5 ml @ 59 mls/hr Q24H4M IV 03/06/25 22:00 03/06/25 22:00 Cancel Laboratory Laboratory Tests 03/08/25 07:19 03/07/25 05:53 Test 03/07/25 05:53 Range/Units Serum Glucose 84 74-106 mg/dL Microbiology Date/Time Source Procedure Growth Status 02/25/25 12:31 Blood Blood Culture - Final NO GROWTH AFTER 5 DAYS OF INCUBATION. Complete 02/25/25 10:00 Voided Urine Urine Culture - Final Complete Examination: GENERAL:Normal, ABDOMEN:Normal (Nondistended, soft, depressible, very mild suprapubic tenderness, no rebound, no guarding) Labs and/or images reviewed: Labs reviewed by me (No leukocytosis) Problem List/Assessment/Plan Assessment and Plan is a 34-year-old female who presented with [place] [address]. [address] there is micro perforation of the sigmoid colon with pericolic stranding and a pelvic abscess measuring 2.[address] ABD/P from 03/01:enlarging pelvic abscess that measures approximately 10 x 4 cm Interval: Patient doing very well this morning, she tolerated regular diet yesterday, had 3 more bowel movements, nonbloody. At this point patient can be discharged with p.o. antibiotics. 1. Okay for discharge 2. Continue p.o. antibiotics for 10-14 days 4. Colace 100 mg p.o. b.i.d. (stool softener) ; no laxatives 5. Patient will need referral to bus and rail operator for colonoscopy in 2-3 months after symptom resolution 6. Patient will need to be in a high-fiber diet starting 2-3 months after symptom resolution 7. Please follow-up with Dr. Ho at surgery Clinic if elective sigmoidectomy is desired. Plan discussed with Plan discussed with: Patient Visit Coding Surgery Date of Service if different f: Mar 08, 2025 Billing Provider: PREMA POZO MD Surgery Visit Codes: [id number] INP/OBS CARE(HIGH) PREMA POZO MD Mar 08, 2025 15:07
== END 2025-03-08 12:30 | disposition home or self-care (01) | DRG 720 ==
LOC: ER 07:48 → OVERFLOW 11:08 → WEST WING 13:10
PROVIDERS: ADMIT Nurse Practitioner Acute Care; ATTEND Nurse Practitioner Acute Care
PROC: 02HV33Z Insertion of Infusion Device into Superior Vena Cava, Percutaneous Approach (ICD-10-PCS; principal; 2025-02-26)
PROC: B548ZZA Ultrasonography of Superior Vena Cava, Guidance (ICD-10-PCS; 2025-02-26)
DX: A41.9 Sepsis, unspecified organism (principal); K57.20 Diverticulitis of large intestine with perforation and abscess without bleeding; E87.5 Hyperkalemia; N73.9 Female pelvic inflammatory disease, unspecified; E28.2 Polycystic ovarian syndrome; E66.01 Morbid (severe) obesity due to excess calories; K59.00 Constipation, unspecified; Z88.6 Allergy status to analgesic agent; Z68.41 Body mass index [BMI] 40.0-44.9, adult; Z79.1 Long term (current) use of non-steroidal anti-inflammatories (NSAID); Z79.2 Long term (current) use of antibiotics; Z79.899 Other long term (current) drug therapy
CPT/HCPCS: 36415; 36569; 71045; 74177; 76937; 80053; 80307; 81001; 82270; 82962; 83036; 83605; 83615; 83735; 84100; 84132; 84478; 85025; 85610; 87040; 87086; 93005; 96365; 96372; 96375; 99291; G0378; J1815; J2405; J2470; J2543; J3480; J3490; J7042; J7060; J7131

== ENCOUNTER 2025-05-17 08:20 | Outpatient (CLI) | payer MEDICAID ==
[~2025-05-17 08:20] MED LIST changes: +DOCU-94 PO; +LEVO500T91 PO; +METR-344 PO; +TRAM-626 PO
[2025-05-17 08:53] LABS: Nucleated Red Blood Cells % 0.0 %
[2025-05-17 08:55] LABS: Hematocrit 43.6 % (36.0-46.0); Hemoglobin 14.7 g/dL (12.2-16.2); Mean Corpuscular Hemoglobin 27.2 pg (28.0-32.0); Mean Corpuscular Volume 80.6 fL (80.0-100.0)
[2025-05-17 09:34] LABS: Alanine Aminotransferase 28 U/L (7-40); Alkaline Phosphatase 93 U/L (46-116); Anion Gap 8 (5-15); BUN/Creatinine Ratio 13.3 (10.0-20.0); Blood Urea Nitrogen 11 mg/dL (9-23); Calcium 9.3 mg/dL (8.7-10.4); Carbon Dioxide 26 mmol/L (20-31); Glucose 106 mg/dL (74-106); Potassium 3.9 mmol/L (3.5-5.1); Sodium 141 mmol/L (136-145); Total Protein 8.1 g/dL (5.7-8.2)
[2025-05-17 09:35] LABS: Albumin 4.6 g/dL (3.2-4.8); Bilirubin, Total 0.4 mg/dL (0.2-1.0); HDL Cholesterol 41 mg/dL (40-59)
[2025-05-17 09:41] LABS: Chloride 107 mmol/L (98-107)
[2025-05-17 09:42] LABS: Cholesterol 201 mg/dL (< 200); Triglycerides 155 mg/dL (< 150)
[2025-05-17 10:12] LABS: Iron 81.0 ug/dL (50-170)
[2025-05-17 10:15] LABS: Total Iron Binding Capacity 337.0 ug/dL (250-425)
[2025-05-17 10:19] LABS: Ferritin 87.2 ng/mL (10-291)
[2025-05-17 11:03] LABS: Hepatitis A Total Antibody Positive (Negative); Hepatitis B Surface Antigen Negative (Negative); Hepatitis C Antibody Negative (Negative)
== END 2025-05-17 17:00 | disposition home or self-care (01) ==
LOC: LAB 08:20
PROVIDERS: ATTEND Licensed Practical Nurse
DX: E55.9 Vitamin D deficiency, unspecified (principal); D50.0 Iron deficiency anemia secondary to blood loss (chronic); R53.0 Neoplastic (malignant) related fatigue; Z13.1 Encounter for screening for diabetes mellitus; Z13.29 Encounter for screening for other suspected endocrine disorder; Z00.01 Encounter for general adult medical examination with abnormal findings
CPT/HCPCS: 36415; 80053; 80061; 82043; 82306; 82607; 82728; 82746; 83540; 83550; 84443; 85025; 86704; 86706; 86708; 86803; 87340

== ENCOUNTER 2025-05-22 09:26 | Outpatient (CLI) | payer MEDICAID ==
[2025-05-22 10:08] LABS: Hematocrit 43.8 % (36.0-46.0); Hemoglobin 14.9 g/dL (12.2-16.2); Mean Corpuscular Hemoglobin 27.3 pg (28.0-32.0); Mean Corpuscular Volume 80.5 fL (80.0-100.0); Nucleated Red Blood Cells % 0.1 %
[2025-05-22 10:51] LABS: Alanine Aminotransferase 34 U/L (7-40); Albumin 4.7 g/dL (3.2-4.8); Alkaline Phosphatase 93 U/L (46-116); Anion Gap 12 (5-15); BUN/Creatinine Ratio 12.7 (10.0-20.0); Bilirubin, Total 0.4 mg/dL (0.2-1.0); Blood Urea Nitrogen 10 mg/dL (9-23); Calcium 9.7 mg/dL (8.7-10.4); Carbon Dioxide 26 mmol/L (20-31); Chloride 104 mmol/L (98-107); Glucose 98 mg/dL (74-106); Potassium 3.9 mmol/L (3.5-5.1); Sodium 142 mmol/L (136-145)
[2025-05-22 10:56] LABS: Total Protein 8.3 g/dL (5.7-8.2)
[2025-05-22 12:19] LABS: Ferritin 85.5 ng/mL (10-291)
[2025-05-22 12:20] LABS: Follicle Stimulating Hormone 4.95 IU/L (SEE BELOW)
[2025-05-22 12:22] LABS: Free T4 (Free Thyroxine) 1.19 ng/dL (0.89-1.76)
[2025-05-24 05:08] LABS: Chlamydia Trachomatis, NAA Negative (Negative); Neisseria gonorrhoeae, NAA Negative (Negative)
== END 2025-05-22 17:00 | disposition home or self-care (01) ==
LOC: LAB 09:26
DX: N93.9 Abnormal uterine and vaginal bleeding, unspecified (principal); Z11.3 Encounter for screening for infections with a predominantly sexual mode of transmission
CPT/HCPCS: 36415; 80053; 82626; 82670; 82728; 83001; 83002; 83036; 83525; 84146; 84270; 84402; 84403; 84439; 84443; 85025; 86703; 86780; 87340; 87902